=== PATIENT | female | born 1960 | race Caucasian/White ===

== ENCOUNTER 2017-03-19 12:35 | Inpatient (IN) ==
[2017-03-19] MEDS ORDERED: SODIUM CHLORIDE 0.9% 1,000 ML IV STA (12:52)
[2017-03-19 13:54] LABS: ABG Base Excess -2.6 MMOL/L (-2.5-2.5); ABG HCO3 22.2 MMOL/L (20-26); ABG Oxygen Saturation 97.2 % (95-100); ABG PCO2 35.5 MM HG (35-48); ABG PH 7.395 (7.35-7.45); ABG PO2 86.1 MM HG (80-95); ABG TCO2 19.3 MMOL/L (23-27); Allen Test Positive; Pt O2 Delivery Device Room Air
[2017-03-19 13:59] LABS: Basophils # 0.1 10*3/uL (0.0-0.2); Basophils % 0.7 % (0.0-0.8); Eosinophils # 0.3 10*3/uL (0.0-0.87); Eosinophils % 2.1 % (0.00-10.9); Hematocrit 35.3 VOL% (35.7-47.0); Hemoglobin 12.5 GM/DL (12.0-16.0); Immature Granulocytes % 0.4 %; Immature Granulocytes Absolute 0.05 #; Lymphocytes # 3.1 10*3/uL (1.4-4.0); Lymphocytes % 25.6 % (21.3-54.2); Mean Corpuscular HGB Conc 35.4 GM/DL (32-36); Mean Corpuscular Hemoglobin 30 PG (27-34); Mean Corpuscular Volume 83.5 FL (87-102); Mean Platelet Volume 10.9 FL (9.6-12.0); Monocytes # 0.9 10*3/uL (0.11-0.8); Monocytes % 7.5 % (1.7-12.7); Neutrophils # 7.8 10*3/uL (1.4-7.4); Neutrophils % 63.7 % (38.7-73.9); Platelet Count 390 T/CUMM (130-400); Red Blood Count 4.23 MC/CUMM (3.8-5.5); Red Cell Distribution Width 12.1 % (9.3-17.3); White Blood Count 12.2 T/CUMM (4-12)
[2017-03-19 14:09] LABS: INR 0.9; Partial Thromboplastin Time 22.7 SECS (0-40)
[2017-03-19 14:11] LABS: Ammonia 15 UMOL/L (11-32)
[2017-03-19 14:43] LABS: Alanine Aminotransferase 15 U/L (13-56); Alkaline Phosphatase 95 U/L (45-117); Aspartate Amino Transferase 19 U/L (0-37); Bilirubin,Total < 0.39 MG/DL (0.2-1.0); Blood Urea Nitrogen 36 MG/DL (7-18); Calcium 8.6 MG/DL (8.5-10.1); Free T4 (Free Thyroxine) 1.08 NG/DL (0.76-1.46); Glucose 141 MG/DL (74-106); Osmolality,Calculated 279.1 MOS/KG (273-304); Potassium 3.9 MMOL/L (3.5-5.1); Sodium 135 MMOL/L (136-145); Troponin I Only 0.022 NG/ML (0.00-0.045)
[2017-03-19 14:46] LABS: Amorphous Crystals,Urine Few /HPF (Few); Apearance,Urine CLOUDY (Clear); Bacteria,Urine Occasional /HPF (Few); Bilirubin,Urine Negative (Negative); Blood, Urine Small mg/dL (Negative); Glucose,Urine (UA) >=500 mg/dL (Negative); Granular Casts,Urine 5 /LPF (0-1); Ketones,Urine Negative (Negative); Mucus,Urine Occasional /LPF (Occasional); Nitrite,Urine Negative (Negative); Protein,Urine >=500 MG/DL; RBC,Urine 5 /HPF (0-4); Squamous Epithelial Cell,Urine Occasional /HPF (0-10); Urine Color Yellow (Yellow); Urine Urobilinogen < 2.0 EU/DL (0.2-1.0); WBC,Urine 2 /HPF (0-6)
[2017-03-19 15:01] LABS: Barbiturates Screen,Urine Negative (Negative); Benzodiazepines Screen,Urine Negative (Negative); Cannabinoid Screen,Urine Negative (Negative); Opiate Screen,Urine Positive (Negative); Phencyclidine Screen,Urine Negative (Negative)
[2017-03-19] MEDS ORDERED: LABETALOL 20 MG/4 ML SYRINGE IV PRN (16:35)
[2017-03-19] MEDS ORDERED: DEXTROSE 50% 25 GM/50 ML VIAL IV PRN (16:35)
[2017-03-19] MEDS ORDERED: ONDANSETRON 4 MG/2 ML VIAL IV PRN (16:35)
[2017-03-19] MEDS ORDERED: LACTULOSE 20 GM/30 ML UDCUP PO PRN (16:35)
[2017-03-19] MEDS ORDERED: GLUCAGON 1 MG VIAL IM PRN (16:35)
[2017-03-19] MEDS ORDERED: DOCUSATE SODIUM 100 MG CAPSULE PO PRN (16:35)
[2017-03-19] MEDS ORDERED: PROMETHAZINE 25 MG TABLET PO PRN (16:50)
[2017-03-19 17:10] LABS: Risk Ratio 7.52; VLDL CHOLESTEROL 118.2 MG/DL
[2017-03-19] MEDS ORDERED: INFLUENZA VIRUS VACCINE 0.5 ML SYRINGE IM ONE (17:50)
[2017-03-19] MEDS: FUROSEMIDE 40 MG TABLET PO SCH (18:15)
[2017-03-19] MEDS: ENOXAPARIN 40 MG/0.4 ML SYRINGE SUBCUT SCH (18:15)
[2017-03-19] MEDS: SODIUM CHLORIDE 0.9% 1,000 ML IV SCH (18:16)
[2017-03-19] MEDS: INSULIN GLARGINE 100 UNIT/ML SUBCUT SCH (21:15)
[2017-03-19] MEDS: CARVEDILOL 25 MG TABLET PO SCH (21:15)
[2017-03-19] MEDS: hydrALAZINE 25 MG TABLET PO SCH (21:15)
[2017-03-19] MEDS: ZALEPLON 5 MG CAPSULE PO PRN (21:16)
[2017-03-19] MEDS: INSULIN LISPRO 100 UNIT/ML SUBCUT SCH (21:16)
[2017-03-20] MEDS: ACETAMINOPHEN 325 MG TABLET PO PRN ×3 (02:39→21:29)
[2017-03-20] MEDS: SODIUM CHLORIDE 0.9% 1,000 ML IV SCH ×3 (02:40→17:10)
[2017-03-20 08:00] LABS: Hematocrit 28.4 VOL% (35.7-47.0); Mean Corpuscular HGB Conc 34.5 GM/DL (32-36); Mean Corpuscular Hemoglobin 29 PG (27-34); Mean Corpuscular Volume 85.3 FL (87-102); Red Cell Distribution Width 12.5 % (9.3-17.3)
[2017-03-20 08:01] LABS: Basophils % 0.5 % (0.0-0.8); Eosinophils # 0.2 10*3/uL (0.0-0.87); Eosinophils % 2.8 % (0.00-10.9); Immature Granulocytes % 0.4 %; Immature Granulocytes Absolute 0.03 #; Lymphocytes # 2.3 10*3/uL (1.4-4.0); Lymphocytes % 27.3 % (21.3-54.2); Mean Platelet Volume 11.4 FL (9.6-12.0); Monocytes # 0.6 10*3/uL (0.11-0.8); Monocytes % 7.6 % (1.7-12.7); Neutrophils # 5.2 10*3/uL (1.4-7.4); Neutrophils % 61.4 % (38.7-73.9)
[2017-03-20 08:09] LABS: Hemoglobin 9.8 GM/DL (12.0-16.0); Red Blood Count 3.33 MC/CUMM (3.8-5.5); White Blood Count 8.4 T/CUMM (4-12)
[2017-03-20 08:10] LABS: Platelet Count 290 T/CUMM (130-400)
[2017-03-20 08:40] LABS: Calcium 7.5 MG/DL (8.5-10.1); Osmolality,Calculated 296.3 MOS/KG (273-304); Potassium 3.3 MMOL/L (3.5-5.1)
[2017-03-20] MEDS ORDERED: ASPIRIN EC 81 MG TABLET PO SCH (09:00)
[2017-03-20] MEDS: INSULIN LISPRO 100 UNIT/ML SUBCUT SCH ×4 (09:39→21:32)
[2017-03-20] MEDS: FUROSEMIDE 40 MG TABLET PO SCH ×2 (09:40→17:08)
[2017-03-20] MEDS: amLODIPine 10 MG TABLET PO SCH (09:41)
[2017-03-20] MEDS: ASPIRIN EC 81 MG TABLET PO SCH (09:42)
[2017-03-20] MEDS: PANTOPRAZOLE 40 MG TABLET PO SCH (09:42)
[2017-03-20] MEDS: CARVEDILOL 25 MG TABLET PO SCH ×2 (09:42→21:31)
[2017-03-20] MEDS: ALLOPURINOL 100 MG TABLET PO SCH (09:42)
[2017-03-20] MEDS: hydrALAZINE 25 MG TABLET PO SCH ×2 (09:42→21:30)
[2017-03-20] MEDS ORDERED: tiZANidine 4 MG TABLET PO PRN (15:06)
[2017-03-20] MEDS ORDERED: LEVOFLOXACIN INJ 500 MG in PREMIX 1 EACH IV ONE (15:30)
[2017-03-20] MEDS: ENOXAPARIN 40 MG/0.4 ML SYRINGE SUBCUT SCH (17:10)
[2017-03-20] MEDS ORDERED: ATORVASTATIN 20 MG TABLET PO SCH (21:00)
[2017-03-20] MEDS: ZALEPLON 5 MG CAPSULE PO PRN (21:29)
[2017-03-20] MEDS: INSULIN GLARGINE 100 UNIT/ML SUBCUT SCH (21:31)
[2017-03-20] MEDS: NYSTATIN POWDER 15 GM BOTTLE TOP SCH (21:31)
[2017-03-21] MEDS: ACETAMINOPHEN 325 MG TABLET PO PRN (01:27)
[2017-03-21 07:11] VITALS: BP 147/70
[2017-03-21 08:00] LABS: Basophils % 0.6 % (0.0-0.8); Eosinophils # 0.2 10*3/uL (0.0-0.87); Eosinophils % 3.5 % (0.00-10.9); Hematocrit 29.1 VOL% (35.7-47.0); Hemoglobin 9.6 GM/DL (12.0-16.0); Immature Granulocytes % 0.9 %; Immature Granulocytes Absolute 0.06 #; Lymphocytes # 1.8 10*3/uL (1.4-4.0); Lymphocytes % 26.4 % (21.3-54.2); Mean Corpuscular Hemoglobin 30 PG (27-34); Mean Corpuscular Volume 90.7 FL (87-102); Mean Platelet Volume 12.1 FL (9.6-12.0); Monocytes # 0.6 10*3/uL (0.11-0.8); Monocytes % 8.2 % (1.7-12.7); Neutrophils # 4.2 10*3/uL (1.4-7.4); Neutrophils % 60.4 % (38.7-73.9); Platelet Count 250 T/CUMM (130-400); Red Blood Count 3.21 MC/CUMM (3.8-5.5); Red Cell Distribution Width 12.8 % (9.3-17.3); White Blood Count 6.9 T/CUMM (4-12)
[2017-03-21 08:08] LABS: Osmolality,Calculated 294.3 MOS/KG (273-304); Potassium 3.6 MMOL/L (3.5-5.1)
[2017-03-21 08:23] LABS: Platelet Estimate Normal
[2017-03-21] MEDS: INSULIN LISPRO 100 UNIT/ML SUBCUT SCH (08:37)
[2017-03-21] MEDS: amLODIPine 10 MG TABLET PO SCH (08:37)
[2017-03-21] MEDS: ALLOPURINOL 100 MG TABLET PO SCH (08:37)
[2017-03-21] MEDS: FUROSEMIDE 40 MG TABLET PO SCH (08:38)
[2017-03-21] MEDS: ASPIRIN EC 81 MG TABLET PO SCH (08:38)
[2017-03-21] MEDS: PANTOPRAZOLE 40 MG TABLET PO SCH (08:38)
[2017-03-21] MEDS: hydrALAZINE 25 MG TABLET PO SCH (08:38)
[2017-03-21] MEDS: NYSTATIN POWDER 15 GM BOTTLE TOP SCH (08:38)
[2017-03-21] MEDS: CARVEDILOL 25 MG TABLET PO SCH (08:38)
[2017-03-21] MEDS: POTASSIUM CHLORIDE 20 MEQ TABLET PO PRN ×2 (08:49→10:06)
[2017-03-21] MEDS ORDERED: MULTIVITAMIN (CENTRUM) TABLET PO SCH (09:00)
[2017-03-21] MEDS ORDERED: LEVOFLOXACIN INJ 250 MG in PREMIX 1 EACH IV SCH (15:30)
== END 2017-03-21 11:10 | disposition home or self-care (01) | DRG 52 ==
LOC: N.ED 12:35 → SUATTDRO 14:56 → N.EDINP 14:56 → N.5E 16:49
PROVIDERS: ADMIT Internal Medicine; ATTEND Internal Medicine

== ENCOUNTER 2017-05-20 15:31 | Inpatient (IN) ==
[2017-05-20 16:05] LABS: Basophils % 0.4 % (0.0-0.8); Eosinophils # 0.2 10*3/uL (0.0-0.87); Eosinophils % 2.5 % (0.00-10.9); Hematocrit 32.4 VOL% (35.7-47.0); Hemoglobin 10.7 GM/DL (12.0-16.0); Immature Granulocytes % 0.3 %; Immature Granulocytes Absolute 0.03 #; Lymphocytes # 1.5 10*3/uL (1.4-4.0); Mean Corpuscular Hemoglobin 28 PG (27-34); Mean Platelet Volume 11.5 FL (9.6-12.0); Monocytes # 0.7 10*3/uL (0.11-0.8); Monocytes % 6.9 % (1.7-12.7); Neutrophils % 73.9 % (38.7-73.9); Platelet Count 318 T/CUMM (130-400); Red Blood Count 3.81 MC/CUMM (3.8-5.5); Red Cell Distribution Width 12.9 % (9.3-17.3); White Blood Count 9.5 T/CUMM (4-12)
[2017-05-20 16:16] LABS: INR 0.9; Partial Thromboplastin Time 28.4 SECS (0-40)
[2017-05-20 16:23] LABS: Alanine Aminotransferase 17 U/L (13-56); Albumin 2.1 G/DL (3.4-5.0); Alkaline Phosphatase 141 U/L (45-117); Ammonia < 10 UMOL/L (11-32); Aspartate Amino Transferase 12 U/L (0-37); Bilirubin,Total < 0.39 MG/DL (0.2-1.0); Blood Urea Nitrogen 32 MG/DL (7-18); Calcium 8.9 MG/DL (8.5-10.1); Osmolality,Calculated 299.8 MOS/KG (273-304); Potassium 4.3 MMOL/L (3.5-5.1); Sodium 130 MMOL/L (136-145); Total Protein 7.2 G/DL (6.4-8.3)
[2017-05-20 16:26] LABS: Glucose 700 MG/DL (74-106)
[2017-05-20 17:10] LABS: Apearance,Urine Slightly Hazy (Clear); Bilirubin,Urine Negative (Negative); Blood, Urine Negative (Negative); Glucose,Urine (UA) >=500 mg/dL (Negative); Hyaline Casts,Urine 1 /LPF (0-3); Ketones,Urine Negative (Negative); Nitrite,Urine Negative (Negative); Protein,Urine >=500 MG/DL; RBC,Urine 2 /HPF (0-4); Urine Color Yellow (Yellow); Urine Urobilinogen < 2.0 EU/DL (0.2-1.0); WBC,Urine 2 /HPF (0-6)
[2017-05-20] MEDS ORDERED: SODIUM CHLORIDE 0.9% 1,000 ML IV STA (17:37)
[2017-05-20] MEDS ORDERED: INSULIN REGULAR 100 UNIT/ML IV STA (17:37)
[2017-05-20] MEDS ORDERED: INSULIN REGULAR 100 UNIT/ML ONE (17:57)
[2017-05-20 18:07] LABS: Barbiturates Screen,Urine Negative (Negative); Benzodiazepines Screen,Urine Negative (Negative); Cannabinoid Screen,Urine Negative (Negative); Opiate Screen,Urine Positive (Negative); Phencyclidine Screen,Urine Negative (Negative)
[2017-05-20] MEDS ORDERED: tiZANidine 4 MG TABLET PO PRN (18:15)
[2017-05-20] MEDS ORDERED: GLUCAGON 1 MG VIAL IM PRN (18:16)
[2017-05-20] MEDS ORDERED: DEXTROSE 50% 25 GM/50 ML VIAL IV PRN (18:16)
[2017-05-20 18:17] LABS: ABG Base Excess 0.7 MMOL/L (-2.5-2.5); ABG HCO3 25.1 MMOL/L (20-26); ABG PCO2 39.4 MM HG (35-48); ABG PH 7.422 (7.35-7.45); ABG PO2 120.7 MM HG (80-95); ABG TCO2 26.3 MMOL/L (23-27)
[2017-05-20] MEDS: SODIUM CHLORIDE 0.9% 1,000 ML IV SCH ×2 (19:05→21:15)
[2017-05-20] MEDS: INSULIN NPH/REGULAR 70/30 100 UNIT/ML SUBCUT SCH (19:56)
[2017-05-20 20:02] LABS: Lactic Acid 3.5 MMOL/L (0.4-2.0)
[2017-05-20] MEDS: MEROPENEM 1,000 MG in SYRINGE 1 EACH IV SCH (20:11)
[2017-05-20] MEDS ORDERED: ENOXAPARIN 30 MG/0.3 ML SYRINGE SUBCUT SCH (21:00)
[2017-05-20] MEDS: CARVEDILOL 25 MG TABLET PO SCH (21:44)
[2017-05-20] MEDS: INSULIN REGULAR 100 UNIT/ML SUBCUT SCH (21:59)
[2017-05-21] MEDS: INSULIN REGULAR 100 UNIT/ML SUBCUT SCH ×5 (03:00→21:57)
[2017-05-21 04:43] LABS: Basophils % 0.3 % (0.0-0.8); Eosinophils # 0.2 10*3/uL (0.0-0.87); Eosinophils % 3.4 % (0.00-10.9); Hematocrit 22.7 VOL% (35.7-47.0); Hemoglobin 7.4 GM/DL (12.0-16.0); Immature Granulocytes % 0.6 %; Immature Granulocytes Absolute 0.04 #; Lymphocytes # 1.7 10*3/uL (1.4-4.0); Lymphocytes % 23.7 % (21.3-54.2); Mean Corpuscular HGB Conc 32.6 GM/DL (32-36); Mean Corpuscular Hemoglobin 29 PG (27-34); Mean Corpuscular Volume 87.3 FL (87-102); Mean Platelet Volume 11.3 FL (9.6-12.0); Monocytes # 0.6 10*3/uL (0.11-0.8); Monocytes % 8.4 % (1.7-12.7); Neutrophils # 4.5 10*3/uL (1.4-7.4); Neutrophils % 63.6 % (38.7-73.9); Platelet Count 204 T/CUMM (130-400); Red Cell Distribution Width 12.9 % (9.3-17.3)
[2017-05-21 05:29] LABS: Magnesium 1.5 MG/DL (1.8-2.4); Osmolality,Calculated 295.4 MOS/KG (273-304); Potassium 2.7 MMOL/L (3.5-5.1); Thyroid Stimulating Hormone 0.783 uIU/ml (0.358-3.74); VLDL CHOLESTEROL 65.4 MG/DL
[2017-05-21 06:01] LABS: Basophils % 0.3 % (0.0-0.8); Eosinophils # 0.3 10*3/uL (0.0-0.87); Eosinophils % 3.4 % (0.00-10.9); Hemoglobin 8.5 GM/DL (12.0-16.0); Immature Granulocytes % 0.5 %; Immature Granulocytes Absolute 0.05 #; Lymphocytes # 2.2 10*3/uL (1.4-4.0); Lymphocytes % 22.9 % (21.3-54.2); Mean Corpuscular HGB Conc 32.7 GM/DL (32-36); Mean Corpuscular Hemoglobin 28 PG (27-34); Mean Corpuscular Volume 86.7 FL (87-102); Mean Platelet Volume 10.8 FL (9.6-12.0); Monocytes # 0.8 10*3/uL (0.11-0.8); Monocytes % 8.1 % (1.7-12.7); Neutrophils # 6.3 10*3/uL (1.4-7.4); Neutrophils % 64.8 % (38.7-73.9); Platelet Count 256 T/CUMM (130-400); Red Cell Distribution Width 12.9 % (9.3-17.3); White Blood Count 9.7 T/CUMM (4-12)
[2017-05-21] MEDS ORDERED: MAGNESIUM SULF RIDER 4 GM in PREMIX 1 EACH IV PRN (07:02)
[2017-05-21] MEDS ORDERED: POTASSIUM CHLORIDE 20 MEQ TABLET PO PRN (07:02)
[2017-05-21] MEDS ORDERED: MAGNESIUM SULF RIDER 2 GM in PREMIX 1 EACH IV PRN (07:02)
[2017-05-21] MEDS ORDERED: INSULIN REGULAR 100 UNIT/ML SUBCUT SCH (08:00)
[2017-05-21] MEDS: CARVEDILOL 25 MG TABLET PO SCH ×2 (09:16→21:57)
[2017-05-21] MEDS: ALLOPURINOL 100 MG TABLET PO SCH (09:17)
[2017-05-21] MEDS: ASPIRIN EC 81 MG TABLET PO SCH (09:17)
[2017-05-21] MEDS: POTASSIUM CHLORIDE 20 MEQ TABLET PO SCH ×3 (09:17→16:37)
[2017-05-21] MEDS: INSULIN NPH/REGULAR 70/30 100 UNIT/ML SUBCUT SCH ×2 (10:00→21:57)
[2017-05-21] MEDS: MEROPENEM 1,000 MG in SYRINGE 1 EACH IV SCH (10:00)
[2017-05-21] MEDS ORDERED: POTASSIUM CHLORIDE RIDER 200 ML IV ONE (10:11)
[2017-05-21] MEDS ORDERED: POTASSIUM CHLORIDE INJ 40 MEQ in SODIUM CHLORIDE 0.45% 250 ML IV ONE (10:30)
[2017-05-21] MEDS ORDERED: POTASSIUM CHLORIDE RIDER 10 MEQ in PREMIX 1 EACH IV SCH (10:30)
[2017-05-21] MEDS: DOXYCYCLINE HYCLATE INJ 100 MG in SODIUM CHLORIDE 0.9% 100 ML IV SCH ×2 (10:31→23:35)
[2017-05-21] MEDS: VANCOMYCIN INJ 1,000 MG in SODIUM CHLORIDE 0.9% 250 ML IV SCH (13:15)
[2017-05-21] MEDS ORDERED: MIDAZOLAM 2 MG/2 ML VIAL ONE (15:14)
[2017-05-21] MEDS ORDERED: PROPOFOL 200 MG/20 ML VIAL IV ONE (15:14)
[2017-05-21] MEDS ORDERED: fentaNYL 100 MCG/2 ML VIAL ONE (15:15)
[2017-05-21] MEDS ORDERED: DEXAMETHASONE 10 MG/1 ML VIAL ONE (15:15)
[2017-05-21] MEDS ORDERED: ONDANSETRON 4 MG/2 ML VIAL ONE ×2 (15:15→15:23)
[2017-05-21] MEDS ORDERED: ONDANSETRON 4 MG/2 ML VIAL IV PRN (15:21)
[2017-05-21] MEDS ORDERED: HYDROmorphone 2 MG/1 ML VIAL ONE (15:23)
[2017-05-21] MEDS: HYDROmorphone 2 MG/1 ML VIAL IV PRN ×2 (15:28→15:44)
[2017-05-21] MEDS: ATORVASTATIN 20 MG TABLET PO SCH (21:57)
[2017-05-21] MEDS: ENOXAPARIN 40 MG/0.4 ML SYRINGE SUBCUT SCH (21:57)
[2017-05-21] MEDS: ZALEPLON 5 MG CAPSULE PO SCH (21:58)
[2017-05-22] MEDS: VANCOMYCIN INJ 1,000 MG in SODIUM CHLORIDE 0.9% 250 ML IV SCH ×2 (00:52→13:36)
[2017-05-22] MEDS: ONDANSETRON 4 MG/2 ML VIAL IV PRN (00:52)
[2017-05-22] MEDS: LOSARTAN 50 MG TABLET PO SCH (08:59)
[2017-05-22] MEDS: INSULIN REGULAR 100 UNIT/ML SUBCUT SCH ×4 (08:59→21:50)
[2017-05-22] MEDS: ALLOPURINOL 100 MG TABLET PO SCH (09:00)
[2017-05-22] MEDS: ASPIRIN EC 81 MG TABLET PO SCH (09:00)
[2017-05-22] MEDS: CARVEDILOL 25 MG TABLET PO SCH ×2 (09:00→21:48)
[2017-05-22] MEDS: INSULIN NPH/REGULAR 70/30 100 UNIT/ML SUBCUT SCH ×2 (09:10→21:49)
[2017-05-22] MEDS: DOXYCYCLINE HYCLATE INJ 100 MG in SODIUM CHLORIDE 0.9% 100 ML IV SCH ×2 (10:41→22:37)
[2017-05-22] MEDS: ATORVASTATIN 20 MG TABLET PO SCH (21:48)
[2017-05-22] MEDS: ENOXAPARIN 40 MG/0.4 ML SYRINGE SUBCUT SCH (21:48)
[2017-05-22] MEDS: ZALEPLON 5 MG CAPSULE PO SCH (21:48)
[2017-05-23] MEDS: VANCOMYCIN INJ 1,000 MG in SODIUM CHLORIDE 0.9% 250 ML IV SCH ×2 (01:09→12:30)
[2017-05-23 06:23] LABS: Basophils % 0.5 % (0.0-0.8); Eosinophils # 0.5 10*3/uL (0.0-0.87); Hematocrit 29.4 VOL% (35.7-47.0); Hemoglobin 9.3 GM/DL (12.0-16.0); Immature Granulocytes % 0.8 %; Immature Granulocytes Absolute 0.06 #; Lymphocytes # 2.7 10*3/uL (1.4-4.0); Lymphocytes % 35.2 % (21.3-54.2); Mean Corpuscular HGB Conc 31.6 GM/DL (32-36); Mean Corpuscular Hemoglobin 28 PG (27-34); Mean Corpuscular Volume 89.6 FL (87-102); Mean Platelet Volume 11.5 FL (9.6-12.0); Monocytes # 0.7 10*3/uL (0.11-0.8); Monocytes % 9.3 % (1.7-12.7); Neutrophils # 3.7 10*3/uL (1.4-7.4); Neutrophils % 48.2 % (38.7-73.9); Platelet Count 247 T/CUMM (130-400); Red Blood Count 3.28 MC/CUMM (3.8-5.5); White Blood Count 7.7 T/CUMM (4-12)
[2017-05-23 07:00] LABS: Calcium 8.1 MG/DL (8.5-10.1); Osmolality,Calculated 287.3 MOS/KG (273-304); Potassium 4.4 MMOL/L (3.5-5.1)
[2017-05-23] MEDS: INSULIN NPH/REGULAR 70/30 100 UNIT/ML SUBCUT SCH ×2 (08:18→18:15)
[2017-05-23] MEDS: INSULIN REGULAR 100 UNIT/ML SUBCUT SCH ×4 (08:19→21:16)
[2017-05-23] MEDS: LOSARTAN 50 MG TABLET PO SCH (08:20)
[2017-05-23] MEDS: CARVEDILOL 25 MG TABLET PO SCH ×2 (08:20→21:12)
[2017-05-23] MEDS: ALLOPURINOL 100 MG TABLET PO SCH (08:21)
[2017-05-23] MEDS: ASPIRIN EC 81 MG TABLET PO SCH (08:21)
[2017-05-23] MEDS: DOXYCYCLINE HYCLATE INJ 100 MG in SODIUM CHLORIDE 0.9% 100 ML IV SCH ×2 (08:21→21:14)
[2017-05-23] MEDS ORDERED: VANCOMYCIN INJ 1,000 MG in SODIUM CHLORIDE 0.9% 250 ML IV PRN (14:00)
[2017-05-23] MEDS: ATORVASTATIN 20 MG TABLET PO SCH (21:13)
[2017-05-23] MEDS: ZALEPLON 5 MG CAPSULE PO SCH (21:13)
[2017-05-23] MEDS: ENOXAPARIN 40 MG/0.4 ML SYRINGE SUBCUT SCH (21:14)
[2017-05-24 07:02] LABS: Calcium 8.5 MG/DL (8.5-10.1); Osmolality,Calculated 290.3 MOS/KG (273-304); Potassium 4.6 MMOL/L (3.5-5.1)
[2017-05-24] MEDS: INSULIN REGULAR 100 UNIT/ML SUBCUT SCH ×2 (08:12→11:55)
[2017-05-24] MEDS: CARVEDILOL 25 MG TABLET PO SCH (08:12)
[2017-05-24] MEDS: LOSARTAN 50 MG TABLET PO SCH (08:12)
[2017-05-24] MEDS: ALLOPURINOL 100 MG TABLET PO SCH (08:12)
[2017-05-24] MEDS: ASPIRIN EC 81 MG TABLET PO SCH (08:13)
[2017-05-24] MEDS: INSULIN NPH/REGULAR 70/30 100 UNIT/ML SUBCUT SCH (08:13)
[2017-05-24] MEDS: ONDANSETRON 4 MG/2 ML VIAL IV PRN (08:34)
[2017-05-24] MEDS: DOXYCYCLINE HYCLATE INJ 100 MG in SODIUM CHLORIDE 0.9% 100 ML IV SCH (08:34)
[2017-05-24 12:09] VITALS: BP 152/61
== END 2017-05-24 13:36 | disposition home or self-care (01) | DRG 383 ==
LOC: EDUNIT# → EDBD → N.ED 15:31 → SUATTDRO 18:03 → N.EDINP 18:03 → N.ICU 19:10 → N.2E 05-21 14:41
PROVIDERS: ADMIT Internal Medicine; ATTEND Internal Medicine

== ENCOUNTER 2017-08-31 11:18 | Inpatient (IN) ==
[2017-08-31] MEDS ORDERED: GLUCAGON 1 MG VIAL IM PRN (12:22)
[2017-08-31 12:51] LABS: Basophils # 0.1 10*3/uL (0.0-0.2); Basophils % 0.5 % (0.0-0.8); Eosinophils # 0.6 10*3/uL (0.0-0.87); Eosinophils % 4.7 % (0.00-10.9); Hematocrit 28.1 VOL% (35.7-47.0); Hemoglobin 8.9 GM/DL (12.0-16.0); Immature Granulocytes % 0.8 %; Immature Granulocytes Absolute 0.09 #; Mean Corpuscular HGB Conc 31.7 GM/DL (32-36); Mean Corpuscular Hemoglobin 29 PG (27-34); Mean Corpuscular Volume 90.9 FL (87-102); Mean Platelet Volume 10.3 FL (9.6-12.0); Monocytes # 0.8 10*3/uL (0.11-0.8); Monocytes % 6.6 % (1.7-12.7); Neutrophils # 8.3 10*3/uL (1.4-7.4); Neutrophils % 70.4 % (38.7-73.9); Platelet Count 388 T/CUMM (130-400); Red Blood Count 3.09 MC/CUMM (3.8-5.5); Red Cell Distribution Width 14.4 % (9.3-17.3); White Blood Count 11.8 T/CUMM (4-12)
[2017-08-31 13:27] LABS: Calcium 8.6 MG/DL (8.5-10.1); Osmolality,Calculated 298.1 MOS/KG (273-304); Potassium 4.7 MMOL/L (3.5-5.1)
[2017-08-31] MEDS ORDERED: MAGNESIUM HYDROXIDE SUSP 30 ML UDCUP PO PRN (14:13)
[2017-08-31] MEDS: SODIUM CHLORIDE 0.9% 1,000 ML IV SCH (15:30)
[2017-08-31] MEDS: MORPHINE 4 MG/1 ML VIAL IV PRN ×3 (15:35→21:22)
[2017-08-31 16:28] LABS: Apearance,Urine CLOUDY (Clear); Bacteria,Urine Occasional /HPF (Few); Bilirubin,Urine Negative (Negative); Blood, Urine Negative (Negative); Glucose,Urine (UA) >=500 mg/dL (Negative); Ketones,Urine Negative (Negative); Mucus,Urine Occasional /LPF (Occasional); Nitrite,Urine Negative (Negative); Protein,Urine >=500 MG/DL; RBC,Urine 1 /HPF (0-4); Squamous Epithelial Cell,Urine Occasional /HPF (0-10); Urine Color Yellow (Yellow); Urine Specific Gravity 1.012 (1.001-1.035); Urine Urobilinogen < 2.0 EU/DL (0.2-1.0); WBC,Urine 5 /HPF (0-6)
[2017-08-31] MEDS ORDERED: HEPARIN DRIP 25,000 UNITS/500 ML PREMIX IV SCH (17:00)
[2017-08-31] MEDS: INSULIN LISPRO 100 UNIT/ML SUBCUT SCH ×2 (17:40→21:22)
[2017-08-31] MEDS: MEROPENEM 1,000 MG in SODIUM CHLORIDE 0.9% 100 ML IV SCH (17:40)
[2017-08-31] MEDS: CARVEDILOL 25 MG TABLET PO SCH (17:47)
[2017-08-31] MEDS: INSULIN NPH/REGULAR 70/30 100 UNIT/ML SUBCUT SCH (18:44)
[2017-08-31] MEDS: DEXTROSE 50% 25 GM/50 ML VIAL IV PRN (20:53)
[2017-08-31] MEDS: GABAPENTIN 300 MG CAPSULE PO SCH (21:22)
[2017-08-31] MEDS: DOCUSATE SODIUM 100 MG CAPSULE PO SCH (21:22)
[2017-08-31] MEDS: FUROSEMIDE 40 MG TABLET PO SCH (21:22)
[2017-08-31] MEDS: ATORVASTATIN 20 MG TABLET PO SCH (21:22)
[2017-09-01] MEDS: MORPHINE 4 MG/1 ML VIAL IV PRN ×3 (00:52→21:10)
[2017-09-01 01:21] LABS: Basophils # 0.1 10*3/uL (0.0-0.2); Basophils % 0.5 % (0.0-0.8); Eosinophils # 0.5 10*3/uL (0.0-0.87); Eosinophils % 4.4 % (0.00-10.9); Hematocrit 28.2 VOL% (35.7-47.0); Immature Granulocytes % 0.7 %; Immature Granulocytes Absolute 0.08 #; Lymphocytes # 2.8 10*3/uL (1.4-4.0); Lymphocytes % 23.2 % (21.3-54.2); Mean Corpuscular HGB Conc 31.9 GM/DL (32-36); Mean Corpuscular Hemoglobin 29 PG (27-34); Mean Corpuscular Volume 89.2 FL (87-102); Mean Platelet Volume 10.4 FL (9.6-12.0); Monocytes # 0.8 10*3/uL (0.11-0.8); Monocytes % 6.4 % (1.7-12.7); Neutrophils # 7.8 10*3/uL (1.4-7.4); Neutrophils % 64.8 % (38.7-73.9); Platelet Count 379 T/CUMM (130-400); Red Blood Count 3.16 MC/CUMM (3.8-5.5); Red Cell Distribution Width 14.2 % (9.3-17.3); White Blood Count 12.1 T/CUMM (4-12)
[2017-09-01 01:39] LABS: Calcium 8.3 MG/DL (8.5-10.1); Osmolality,Calculated 296.8 MOS/KG (273-304)
[2017-09-01] MEDS: MEROPENEM 1,000 MG in SODIUM CHLORIDE 0.9% 100 ML IV SCH ×2 (05:30→16:33)
[2017-09-01] MEDS: SODIUM CHLORIDE 0.9% 1,000 ML IV SCH ×2 (05:31→23:32)
[2017-09-01] MEDS: INSULIN LISPRO 100 UNIT/ML SUBCUT SCH ×4 (08:57→23:11)
[2017-09-01] MEDS: METHOCARBAMOL 750 MG TABLET PO PRN (08:58)
[2017-09-01] MEDS: CARVEDILOL 25 MG TABLET PO SCH ×2 (08:58→16:34)
[2017-09-01] MEDS: INSULIN NPH/REGULAR 70/30 100 UNIT/ML SUBCUT SCH ×2 (08:58→19:04)
[2017-09-01] MEDS ORDERED: NIFEdipine CC 60 MG TABLET PO SCH (09:00)
[2017-09-01] MEDS ORDERED: DIAZEPAM 5 MG TABLET PO ONE (09:39)
[2017-09-01] MEDS ORDERED: SODIUM CHLORIDE 0.45% 1,000 ML IV SCH (10:00)
[2017-09-01] MEDS ORDERED: HEPARIN/NACL 0.9% 2 UNITS/ML 2,000 ML IV ONE (10:21)
[2017-09-01] MEDS: ASPIRIN EC 81 MG TABLET PO SCH (10:32)
[2017-09-01] MEDS: MULTIVITAMIN (CENTRUM) TABLET PO SCH (10:32)
[2017-09-01] MEDS: DOCUSATE SODIUM 100 MG CAPSULE PO SCH ×2 (10:32→21:14)
[2017-09-01] MEDS: LOSARTAN 50 MG TABLET PO SCH (10:33)
[2017-09-01] MEDS: GABAPENTIN 300 MG CAPSULE PO SCH ×3 (10:33→21:14)
[2017-09-01] MEDS: FUROSEMIDE 40 MG TABLET PO SCH ×2 (10:33→21:14)
[2017-09-01] MEDS: POTASSIUM CHLORIDE 20 MEQ TABLET PO SCH (10:33)
[2017-09-01] MEDS: POLYETHYLENE GLYCOL POWDER 17 GM PACK PO SCH (10:33)
[2017-09-01] MEDS: ALLOPURINOL 100 MG TABLET PO SCH (10:34)
[2017-09-01] MEDS: CHOLECALCIFEROL 1,000 UNIT TABLET PO SCH (10:34)
[2017-09-01] MEDS ORDERED: hydrALAZINE 20 MG/1 ML VIAL ONE (11:14)
[2017-09-01] MEDS ORDERED: hydrALAZINE 20 MG/1 ML VIAL IV ONE (11:19)
[2017-09-01] MEDS: ATORVASTATIN 20 MG TABLET PO SCH (21:14)
[2017-09-02] MEDS: MORPHINE 4 MG/1 ML VIAL IV PRN ×6 (01:54→23:49)
[2017-09-02 04:10] LABS: Basophils # 0.1 10*3/uL (0.0-0.2); Basophils % 0.5 % (0.0-0.8); Eosinophils # 0.4 10*3/uL (0.0-0.87); Hematocrit 27.5 VOL% (35.7-47.0); Hemoglobin 8.8 GM/DL (12.0-16.0); Immature Granulocytes % 0.8 %; Immature Granulocytes Absolute 0.08 #; Lymphocytes # 2.1 10*3/uL (1.4-4.0); Lymphocytes % 20.2 % (21.3-54.2); Mean Corpuscular Hemoglobin 28 PG (27-34); Mean Corpuscular Volume 88.4 FL (87-102); Mean Platelet Volume 10.5 FL (9.6-12.0); Monocytes # 0.7 10*3/uL (0.11-0.8); Neutrophils # 7.1 10*3/uL (1.4-7.4); Neutrophils % 67.5 % (38.7-73.9); Platelet Count 372 T/CUMM (130-400); Red Blood Count 3.11 MC/CUMM (3.8-5.5); Red Cell Distribution Width 14.5 % (9.3-17.3); White Blood Count 10.5 T/CUMM (4-12)
[2017-09-02 04:29] LABS: Calcium 8.4 MG/DL (8.5-10.1); Osmolality,Calculated 291.3 MOS/KG (273-304); Potassium 4.4 MMOL/L (3.5-5.1)
[2017-09-02 04:30] LABS: Calcium 8.3 MG/DL (8.5-10.1); Osmolality,Calculated 293.1 MOS/KG (273-304); Potassium 4.2 MMOL/L (3.5-5.1)
[2017-09-02] MEDS: MEROPENEM 1,000 MG in SODIUM CHLORIDE 0.9% 100 ML IV SCH ×2 (05:20→15:47)
[2017-09-02] MEDS: SODIUM CHLORIDE 0.9% 1,000 ML IV SCH ×2 (07:37→21:07)
[2017-09-02] MEDS: GABAPENTIN 300 MG CAPSULE PO SCH ×3 (09:09→21:02)
[2017-09-02] MEDS: INSULIN NPH/REGULAR 70/30 100 UNIT/ML SUBCUT SCH ×2 (09:10→18:01)
[2017-09-02] MEDS: CHOLECALCIFEROL 1,000 UNIT TABLET PO SCH (09:10)
[2017-09-02] MEDS: POTASSIUM CHLORIDE 20 MEQ TABLET PO SCH (09:10)
[2017-09-02] MEDS: DOCUSATE SODIUM 100 MG CAPSULE PO SCH ×2 (09:10→21:03)
[2017-09-02] MEDS: CARVEDILOL 25 MG TABLET PO SCH ×2 (09:10→16:58)
[2017-09-02] MEDS: MULTIVITAMIN (CENTRUM) TABLET PO SCH (09:10)
[2017-09-02] MEDS: ALLOPURINOL 100 MG TABLET PO SCH (09:10)
[2017-09-02] MEDS: ASPIRIN EC 81 MG TABLET PO SCH (09:10)
[2017-09-02] MEDS: INSULIN LISPRO 100 UNIT/ML SUBCUT SCH ×4 (09:13→21:03)
[2017-09-02] MEDS: POLYETHYLENE GLYCOL POWDER 17 GM PACK PO SCH (09:14)
[2017-09-02] MEDS: LOSARTAN 50 MG TABLET PO SCH (09:18)
[2017-09-02] MEDS: FUROSEMIDE 40 MG TABLET PO SCH ×2 (09:18→21:02)
[2017-09-02] MEDS ORDERED: SODIUM CHLORIDE 0.9% 1,000 ML IV PRN (09:36)
[2017-09-02] MEDS: ATORVASTATIN 20 MG TABLET PO SCH (21:03)
[2017-09-03] MEDS: MORPHINE 4 MG/1 ML VIAL IV PRN ×4 (04:37→17:59)
[2017-09-03] MEDS: MEROPENEM 1,000 MG in SODIUM CHLORIDE 0.9% 100 ML IV SCH ×2 (04:38→18:10)
[2017-09-03] MEDS: INSULIN LISPRO 100 UNIT/ML SUBCUT SCH ×4 (08:08→20:21)
[2017-09-03] MEDS: INSULIN NPH/REGULAR 70/30 100 UNIT/ML SUBCUT SCH ×2 (08:09→18:03)
[2017-09-03] MEDS: POTASSIUM CHLORIDE 20 MEQ TABLET PO SCH (08:10)
[2017-09-03] MEDS: GABAPENTIN 300 MG CAPSULE PO SCH ×3 (08:10→20:20)
[2017-09-03] MEDS: MULTIVITAMIN (CENTRUM) TABLET PO SCH (08:10)
[2017-09-03] MEDS: CARVEDILOL 25 MG TABLET PO SCH ×2 (08:10→18:03)
[2017-09-03] MEDS: ASPIRIN EC 81 MG TABLET PO SCH (08:10)
[2017-09-03] MEDS: ALLOPURINOL 100 MG TABLET PO SCH (08:10)
[2017-09-03] MEDS: FUROSEMIDE 40 MG TABLET PO SCH ×2 (08:10→20:20)
[2017-09-03] MEDS: LOSARTAN 50 MG TABLET PO SCH (08:10)
[2017-09-03] MEDS: DOCUSATE SODIUM 100 MG CAPSULE PO SCH ×2 (08:10→20:20)
[2017-09-03] MEDS: CHOLECALCIFEROL 1,000 UNIT TABLET PO SCH (08:10)
[2017-09-03] MEDS: POLYETHYLENE GLYCOL POWDER 17 GM PACK PO SCH (08:50)
[2017-09-03] MEDS: SODIUM CHLORIDE 0.9% 1,000 ML IV SCH (08:50)
[2017-09-03] MEDS: PROMETHAZINE 25 MG TABLET PO PRN (18:10)
[2017-09-03] MEDS: ATORVASTATIN 20 MG TABLET PO SCH (20:20)
[2017-09-03] MEDS: ONDANSETRON 4 MG TABLET PO PRN (20:20)
[2017-09-04] MEDS: MORPHINE 4 MG/1 ML VIAL IV PRN ×5 (01:06→23:59)
[2017-09-04] MEDS: SODIUM CHLORIDE 0.9% 1,000 ML IV SCH ×3 (05:14→20:34)
[2017-09-04] MEDS: MEROPENEM 1,000 MG in SODIUM CHLORIDE 0.9% 100 ML IV SCH ×2 (05:15→16:19)
[2017-09-04 05:40] LABS: Basophils # 0.1 10*3/uL (0.0-0.2); Basophils % 0.6 % (0.0-0.8); Eosinophils # 0.4 10*3/uL (0.0-0.87); Eosinophils % 3.6 % (0.00-10.9); Immature Granulocytes % 0.6 %; Immature Granulocytes Absolute 0.07 #; Lymphocytes # 2.2 10*3/uL (1.4-4.0); Lymphocytes % 19.1 % (21.3-54.2); Mean Corpuscular HGB Conc 31.1 GM/DL (32-36); Mean Corpuscular Hemoglobin 29 PG (27-34); Mean Corpuscular Volume 91.6 FL (87-102); Mean Platelet Volume 10.4 FL (9.6-12.0); Monocytes # 1.1 10*3/uL (0.11-0.8); Monocytes % 9.2 % (1.7-12.7); Neutrophils # 7.8 10*3/uL (1.4-7.4); Neutrophils % 66.9 % (38.7-73.9); Platelet Count 311 T/CUMM (130-400); Red Blood Count 3.93 MC/CUMM (3.8-5.5); Red Cell Distribution Width 14.1 % (9.3-17.3); White Blood Count 11.7 T/CUMM (4-12)
[2017-09-04 05:48] LABS: Hemoglobin 11.2 GM/DL (12.0-16.0)
[2017-09-04 06:07] LABS: Calcium 8.5 MG/DL (8.5-10.1); Osmolality,Calculated 289.8 MOS/KG (273-304); Potassium 5.5 MMOL/L (3.5-5.1)
[2017-09-04] MEDS: INSULIN LISPRO 100 UNIT/ML SUBCUT SCH ×4 (07:40→21:08)
[2017-09-04] MEDS: INSULIN NPH/REGULAR 70/30 100 UNIT/ML SUBCUT SCH ×2 (08:35→18:19)
[2017-09-04] MEDS: LOSARTAN 50 MG TABLET PO SCH (08:35)
[2017-09-04] MEDS: CARVEDILOL 25 MG TABLET PO SCH ×2 (08:36→16:20)
[2017-09-04] MEDS ORDERED: MAGNESIUM SULF RIDER 4 GM in PREMIX 1 EACH IV PRN (10:18)
[2017-09-04] MEDS ORDERED: MAGNESIUM SULF RIDER 2 GM in PREMIX 1 EACH IV PRN (10:18)
[2017-09-04] MEDS: MULTIVITAMIN (CENTRUM) TABLET PO SCH (10:21)
[2017-09-04] MEDS: ASPIRIN EC 81 MG TABLET PO SCH (10:21)
[2017-09-04] MEDS: DOCUSATE SODIUM 100 MG CAPSULE PO SCH ×2 (10:21→21:08)
[2017-09-04] MEDS: CHOLECALCIFEROL 1,000 UNIT TABLET PO SCH (10:21)
[2017-09-04] MEDS: POLYETHYLENE GLYCOL POWDER 17 GM PACK PO SCH (10:21)
[2017-09-04] MEDS: FUROSEMIDE 40 MG TABLET PO SCH ×2 (10:21→21:08)
[2017-09-04] MEDS: GABAPENTIN 300 MG CAPSULE PO SCH ×3 (10:21→21:07)
[2017-09-04] MEDS: POTASSIUM CHLORIDE 20 MEQ TABLET PO SCH (10:21)
[2017-09-04] MEDS: ALLOPURINOL 100 MG TABLET PO SCH (10:22)
[2017-09-04] MEDS: METHOCARBAMOL 750 MG TABLET PO PRN (17:47)
[2017-09-04] MEDS: ATORVASTATIN 20 MG TABLET PO SCH (21:07)
[2017-09-04] MEDS: PROMETHAZINE 25 MG TABLET PO PRN (23:49)
[2017-09-05] MEDS ORDERED: PROMETHAZINE 25 MG/1 ML VIAL IM ONE (00:33)
[2017-09-05] MEDS: SODIUM CHLORIDE 0.9% 1,000 ML IV SCH ×2 (03:41→18:27)
[2017-09-05] MEDS: ONDANSETRON 4 MG/2 ML VIAL IV PRN (04:06)
[2017-09-05 05:06] LABS: Calcium 8.6 MG/DL (8.5-10.1); Osmolality,Calculated 296.4 MOS/KG (273-304); Potassium 5.1 MMOL/L (3.5-5.1)
[2017-09-05] MEDS ORDERED: FAMOTIDINE 20 MG TABLET PO ONE (06:00)
[2017-09-05] MEDS ORDERED: ALBUTEROL/IPRATROPIUM 3 ML NEB RESP TX ONE (06:00)
[2017-09-05] MEDS ORDERED: ALBUTEROL 2.5 MG/3 ML NEB RESP TX ONE (06:00)
[2017-09-05] MEDS: MORPHINE 4 MG/1 ML VIAL IV PRN (06:00)
[2017-09-05] MEDS: INSULIN LISPRO 100 UNIT/ML SUBCUT SCH ×3 (08:32→20:47)
[2017-09-05] MEDS: MEROPENEM 1,000 MG in SODIUM CHLORIDE 0.9% 100 ML IV SCH ×2 (08:34→20:48)
[2017-09-05] MEDS: CARVEDILOL 25 MG TABLET PO SCH ×2 (08:35→17:43)
[2017-09-05] MEDS: LOSARTAN 25 MG TABLET PO SCH (08:35)
[2017-09-05] MEDS ORDERED: VANCOMYCIN INJ 500 MG in SODIUM CHLORIDE 0.9% 100 ML IV ONE (09:34)
[2017-09-05] MEDS: ASPIRIN EC 81 MG TABLET PO SCH (10:24)
[2017-09-05] MEDS: MULTIVITAMIN (CENTRUM) TABLET PO SCH (10:25)
[2017-09-05] MEDS: INSULIN NPH/REGULAR 70/30 100 UNIT/ML SUBCUT SCH ×2 (10:25→20:43)
[2017-09-05] MEDS: POLYETHYLENE GLYCOL POWDER 17 GM PACK PO SCH (10:25)
[2017-09-05] MEDS: DOCUSATE SODIUM 100 MG CAPSULE PO SCH ×2 (10:25→20:43)
[2017-09-05] MEDS: FUROSEMIDE 40 MG TABLET PO SCH ×2 (10:25→20:43)
[2017-09-05] MEDS: POTASSIUM CHLORIDE 20 MEQ TABLET PO SCH (10:25)
[2017-09-05] MEDS: CHOLECALCIFEROL 1,000 UNIT TABLET PO SCH (10:26)
[2017-09-05] MEDS: GABAPENTIN 300 MG CAPSULE PO SCH ×3 (10:26→20:43)
[2017-09-05] MEDS: ALLOPURINOL 100 MG TABLET PO SCH (10:26)
[2017-09-05] MEDS ORDERED: HEPARIN 5,000 UNIT/1 ML VIAL ONE (10:51)
[2017-09-05] MEDS ORDERED: LIDOCAINE 2% TOP JELLY 20 ML VIAL INTRAURETH ONE (10:51)
[2017-09-05] MEDS ORDERED: THROMBIN TOPICAL (RECOMBINANT) 5,000 UNIT VIAL TOP ONE (10:52)
[2017-09-05] MEDS ORDERED: TISSUE ADHESIVE 1 EACH APPLICATOR TOP ONE (10:52)
[2017-09-05] MEDS ORDERED: VANCOMYCIN 500 MG VIAL ONE (10:52)
[2017-09-05] MEDS ORDERED: LIDOCAINE 1% 50 ML VIAL ONE (10:52)
[2017-09-05] MEDS ORDERED: ONDANSETRON 4 MG/2 ML VIAL IV PRN ×2 (15:06→15:56)
[2017-09-05] MEDS ORDERED: MIDAZOLAM 2 MG/2 ML VIAL ONE (15:22)
[2017-09-05] MEDS ORDERED: fentaNYL 100 MCG/2 ML VIAL ONE (15:22)
[2017-09-05] MEDS ORDERED: DESFLURANE 1 UNIT/15 MINUTE INH ONE (15:24)
[2017-09-05] MEDS ORDERED: HEPARIN 10,000 UNIT/10 ML VIAL ONE (15:24)
[2017-09-05] MEDS ORDERED: ETOMIDATE 40 MG/20 ML VIAL IV ONE (15:25)
[2017-09-05] MEDS ORDERED: ONDANSETRON 4 MG/2 ML VIAL ONE ×2 (15:25→15:53)
[2017-09-05] MEDS ORDERED: ROCURONIUM 100 MG/10 ML VIAL IV ONE (15:25)
[2017-09-05] MEDS: HYDROmorphone 2 MG/1 ML VIAL IV PRN ×4 (15:50→20:38)
[2017-09-05] MEDS ORDERED: HYDROmorphone 2 MG/1 ML VIAL ONE (15:53)
[2017-09-05] MEDS: LACTATED RINGERS 1,000 ML IV SCH (17:44)
[2017-09-05] MEDS: ATORVASTATIN 20 MG TABLET PO SCH (20:43)
[2017-09-06] MEDS: HYDROmorphone 2 MG/1 ML VIAL IV PRN ×3 (02:03→20:37)
[2017-09-06 06:20] LABS: Hematocrit 31.5 VOL% (35.7-47.0); Hemoglobin 9.9 GM/DL (12.0-16.0)
[2017-09-06] MEDS: SODIUM CHLORIDE 0.9% 1,000 ML IV SCH (07:24)
[2017-09-06] MEDS: LACTATED RINGERS 1,000 ML IV SCH ×2 (07:24→09:23)
[2017-09-06] MEDS ORDERED: ASPIRIN CHEW 81 MG TABLET PO SCH (09:00)
[2017-09-06] MEDS: MEROPENEM 1,000 MG in SODIUM CHLORIDE 0.9% 100 ML IV SCH ×2 (09:18→20:34)
[2017-09-06] MEDS: GABAPENTIN 300 MG CAPSULE PO SCH ×3 (09:19→20:41)
[2017-09-06] MEDS: FUROSEMIDE 40 MG TABLET PO SCH ×2 (09:19→20:41)
[2017-09-06] MEDS: LOSARTAN 25 MG TABLET PO SCH (09:20)
[2017-09-06] MEDS: POTASSIUM CHLORIDE 20 MEQ TABLET PO SCH (09:20)
[2017-09-06] MEDS: MULTIVITAMIN (CENTRUM) TABLET PO SCH (09:20)
[2017-09-06] MEDS: CLOPIDOGREL 75 MG TABLET PO SCH (09:20)
[2017-09-06] MEDS: CHOLECALCIFEROL 1,000 UNIT TABLET PO SCH (09:20)
[2017-09-06] MEDS: ALLOPURINOL 100 MG TABLET PO SCH (09:20)
[2017-09-06] MEDS: CARVEDILOL 25 MG TABLET PO SCH ×2 (09:21→16:15)
[2017-09-06] MEDS: ASPIRIN EC 81 MG TABLET PO SCH (09:21)
[2017-09-06] MEDS: DOCUSATE SODIUM 100 MG CAPSULE PO SCH ×2 (09:21→20:41)
[2017-09-06] MEDS: POLYETHYLENE GLYCOL POWDER 17 GM PACK PO SCH (09:22)
[2017-09-06] MEDS: INSULIN NPH/REGULAR 70/30 100 UNIT/ML SUBCUT SCH ×2 (09:22→20:41)
[2017-09-06] MEDS: INSULIN LISPRO 100 UNIT/ML SUBCUT SCH ×4 (09:23→20:40)
[2017-09-06] MEDS: MORPHINE 4 MG/1 ML VIAL IV PRN (14:05)
[2017-09-06] MEDS: ATORVASTATIN 20 MG TABLET PO SCH (20:42)
[2017-09-07] MEDS: HYDROmorphone 2 MG/1 ML VIAL IV PRN ×3 (01:29→21:09)
[2017-09-07 05:33] LABS: Hematocrit 29.1 VOL% (35.7-47.0); Hemoglobin 9.4 GM/DL (12.0-16.0)
[2017-09-07 06:24] LABS: Calcium 8.4 MG/DL (8.5-10.1); Osmolality,Calculated 295.7 MOS/KG (273-304); Potassium 5.5 MMOL/L (3.5-5.1)
[2017-09-07] MEDS: ONDANSETRON 4 MG/2 ML VIAL IV PRN (09:17)
[2017-09-07] MEDS: MEROPENEM 1,000 MG in SODIUM CHLORIDE 0.9% 100 ML IV SCH ×2 (09:20→19:58)
[2017-09-07] MEDS: INSULIN NPH/REGULAR 70/30 100 UNIT/ML SUBCUT SCH ×2 (09:20→21:08)
[2017-09-07] MEDS: INSULIN LISPRO 100 UNIT/ML SUBCUT SCH ×4 (09:20→21:08)
[2017-09-07] MEDS: DOCUSATE SODIUM 100 MG CAPSULE PO SCH ×2 (09:21→21:08)
[2017-09-07] MEDS: MULTIVITAMIN (CENTRUM) TABLET PO SCH (09:21)
[2017-09-07] MEDS: CARVEDILOL 25 MG TABLET PO SCH ×2 (09:21→16:32)
[2017-09-07] MEDS: CLOPIDOGREL 75 MG TABLET PO SCH (09:21)
[2017-09-07] MEDS: CHOLECALCIFEROL 1,000 UNIT TABLET PO SCH (09:21)
[2017-09-07] MEDS: FUROSEMIDE 40 MG TABLET PO SCH ×2 (09:22→21:07)
[2017-09-07] MEDS: ALLOPURINOL 100 MG TABLET PO SCH (09:22)
[2017-09-07] MEDS: POLYETHYLENE GLYCOL POWDER 17 GM PACK PO SCH (09:22)
[2017-09-07] MEDS: GABAPENTIN 300 MG CAPSULE PO SCH ×5 (09:22→21:08)
[2017-09-07] MEDS: LOSARTAN 25 MG TABLET PO SCH (09:22)
[2017-09-07] MEDS: ASPIRIN EC 81 MG TABLET PO SCH (09:22)
[2017-09-07] MEDS: POTASSIUM CHLORIDE 20 MEQ TABLET PO SCH (09:44)
[2017-09-07] MEDS: SODIUM CHLORIDE 0.45% 1,000 ML IV SCH (10:41)
[2017-09-07] MEDS: DEXTROSE 50% 25 GM/50 ML VIAL IV PRN (15:21)
[2017-09-07] MEDS: METHOCARBAMOL 750 MG TABLET PO PRN (16:32)
[2017-09-07] MEDS: ATORVASTATIN 20 MG TABLET PO SCH (21:07)
[2017-09-08] MEDS: INSULIN NPH/REGULAR 70/30 100 UNIT/ML SUBCUT SCH ×2 (09:18→20:46)
[2017-09-08] MEDS: SODIUM CHLORIDE 0.45% 1,000 ML IV SCH (09:36)
[2017-09-08] MEDS: MEROPENEM 1,000 MG in SODIUM CHLORIDE 0.9% 100 ML IV SCH (09:47)
[2017-09-08] MEDS: LOSARTAN 25 MG TABLET PO SCH (09:48)
[2017-09-08] MEDS: HYDROmorphone 2 MG/1 ML VIAL IV PRN (10:10)
[2017-09-08] MEDS: INSULIN LISPRO 100 UNIT/ML SUBCUT SCH ×4 (10:15→20:46)
[2017-09-08] MEDS: DOCUSATE SODIUM 100 MG CAPSULE PO SCH ×2 (10:16→20:47)
[2017-09-08] MEDS: ASPIRIN EC 81 MG TABLET PO SCH (10:16)
[2017-09-08] MEDS: CARVEDILOL 25 MG TABLET PO SCH ×2 (10:16→17:19)
[2017-09-08] MEDS: CLOPIDOGREL 75 MG TABLET PO SCH (10:16)
[2017-09-08] MEDS: GABAPENTIN 300 MG CAPSULE PO SCH (10:16)
[2017-09-08] MEDS: ALLOPURINOL 100 MG TABLET PO SCH (10:17)
[2017-09-08] MEDS: FUROSEMIDE 40 MG TABLET PO SCH (10:17)
[2017-09-08] MEDS: CHOLECALCIFEROL 1,000 UNIT TABLET PO SCH (10:17)
[2017-09-08] MEDS: MULTIVITAMIN (CENTRUM) TABLET PO SCH (10:17)
[2017-09-08] MEDS: POLYETHYLENE GLYCOL POWDER 17 GM PACK PO SCH (10:18)
[2017-09-08 11:04] LABS: Osmolality,Calculated 293.2 MOS/KG (273-304); Potassium 5.3 MMOL/L (3.5-5.1)
[2017-09-08] MEDS: GABAPENTIN 100 MG CAPSULE PO SCH ×2 (17:06→20:46)
[2017-09-08] MEDS: ATORVASTATIN 20 MG TABLET PO SCH (20:47)
[2017-09-08] MEDS: METHOCARBAMOL 750 MG TABLET PO PRN (22:20)
[2017-09-09] MEDS: HYDROmorphone 2 MG/1 ML VIAL IV PRN (02:31)
[2017-09-09 05:30] LABS: Basophils # 0.1 10*3/uL (0.0-0.2); Basophils % 0.6 % (0.0-0.8); Eosinophils # 0.3 10*3/uL (0.0-0.87); Eosinophils % 2.9 % (0.00-10.9); Hematocrit 27.5 VOL% (35.7-47.0); Hemoglobin 8.8 GM/DL (12.0-16.0); Immature Granulocytes % 0.7 %; Immature Granulocytes Absolute 0.08 #; Lymphocytes # 1.2 10*3/uL (1.4-4.0); Lymphocytes % 11.3 % (21.3-54.2); Mean Corpuscular Hemoglobin 29 PG (27-34); Mean Platelet Volume 11.6 FL (9.6-12.0); Monocytes # 0.7 10*3/uL (0.11-0.8); Monocytes % 6.8 % (1.7-12.7); Neutrophils # 8.4 10*3/uL (1.4-7.4); Neutrophils % 77.7 % (38.7-73.9); Platelet Count 358 T/CUMM (130-400); Red Blood Count 3.09 MC/CUMM (3.8-5.5); Red Cell Distribution Width 13.3 % (9.3-17.3); White Blood Count 10.9 T/CUMM (4-12)
[2017-09-09] MEDS: SODIUM CHLORIDE 0.45% 1,000 ML IV SCH (06:00)
[2017-09-09 06:36] LABS: Calcium 8.1 MG/DL (8.5-10.1); Osmolality,Calculated 294.1 MOS/KG (273-304); Potassium 5.4 MMOL/L (3.5-5.1)
[2017-09-09] MEDS: INSULIN NPH/REGULAR 70/30 100 UNIT/ML SUBCUT SCH ×2 (08:53→20:59)
[2017-09-09] MEDS: INSULIN LISPRO 100 UNIT/ML SUBCUT SCH ×4 (09:19→21:00)
[2017-09-09] MEDS: MULTIVITAMIN (CENTRUM) TABLET PO SCH (09:20)
[2017-09-09] MEDS: CHOLECALCIFEROL 1,000 UNIT TABLET PO SCH (09:20)
[2017-09-09] MEDS: DOCUSATE SODIUM 100 MG CAPSULE PO SCH ×2 (09:21→20:58)
[2017-09-09] MEDS: CLOPIDOGREL 75 MG TABLET PO SCH (09:22)
[2017-09-09] MEDS: ASPIRIN EC 81 MG TABLET PO SCH (09:22)
[2017-09-09] MEDS: ALLOPURINOL 100 MG TABLET PO SCH (09:23)
[2017-09-09] MEDS: CARVEDILOL 25 MG TABLET PO SCH (09:23)
[2017-09-09] MEDS: GABAPENTIN 100 MG CAPSULE PO SCH ×3 (09:23→21:01)
[2017-09-09] MEDS: POLYETHYLENE GLYCOL POWDER 17 GM PACK PO SCH (09:23)
[2017-09-09] MEDS: ATORVASTATIN 20 MG TABLET PO SCH (20:58)
[2017-09-09] MEDS: CARVEDILOL 12.5 MG TABLET PO SCH (20:59)
[2017-09-10 05:37] LABS: Albumin 1.5 G/DL (3.4-5.0); Calcium 8.4 MG/DL (8.5-10.1); Osmolality,Calculated 297.7 MOS/KG (273-304); Potassium 4.7 MMOL/L (3.5-5.1)
[2017-09-10] MEDS: POLYETHYLENE GLYCOL POWDER 17 GM PACK PO SCH (09:30)
[2017-09-10] MEDS: DOCUSATE SODIUM 100 MG CAPSULE PO SCH ×2 (09:30→21:42)
[2017-09-10] MEDS: INSULIN NPH/REGULAR 70/30 100 UNIT/ML SUBCUT SCH ×2 (09:30→21:42)
[2017-09-10] MEDS: GABAPENTIN 100 MG CAPSULE PO SCH ×3 (09:31→21:50)
[2017-09-10] MEDS: INSULIN LISPRO 100 UNIT/ML SUBCUT SCH ×4 (09:45→21:47)
[2017-09-10] MEDS: CLOPIDOGREL 75 MG TABLET PO SCH (09:46)
[2017-09-10] MEDS: ASPIRIN EC 81 MG TABLET PO SCH (09:47)
[2017-09-10] MEDS: CARVEDILOL 12.5 MG TABLET PO SCH ×2 (09:47→17:00)
[2017-09-10] MEDS: CHOLECALCIFEROL 1,000 UNIT TABLET PO SCH (09:47)
[2017-09-10] MEDS: MULTIVITAMIN (CENTRUM) TABLET PO SCH (09:48)
[2017-09-10] MEDS: ALLOPURINOL 100 MG TABLET PO SCH (09:48)
[2017-09-10] MEDS: SODIUM CHLORIDE 0.45% 1,000 ML IV SCH ×2 (12:27→21:43)
[2017-09-10] MEDS: METHOCARBAMOL 750 MG TABLET PO PRN (16:59)
[2017-09-10] MEDS: ATORVASTATIN 20 MG TABLET PO SCH (21:42)
[2017-09-11 06:38] LABS: Calcium 8.3 MG/DL (8.5-10.1); Osmolality,Calculated 295.4 MOS/KG (273-304); Potassium 4.5 MMOL/L (3.5-5.1)
[2017-09-11] MEDS: SODIUM CHLORIDE 0.45% 1,000 ML IV SCH ×2 (08:14→15:41)
[2017-09-11] MEDS: GABAPENTIN 100 MG CAPSULE PO SCH ×3 (08:49→21:26)
[2017-09-11] MEDS: MULTIVITAMIN (CENTRUM) TABLET PO SCH (08:49)
[2017-09-11] MEDS: DOCUSATE SODIUM 100 MG CAPSULE PO SCH ×2 (08:50→21:26)
[2017-09-11] MEDS: CARVEDILOL 12.5 MG TABLET PO SCH ×2 (08:50→19:16)
[2017-09-11] MEDS: INSULIN NPH/REGULAR 70/30 100 UNIT/ML SUBCUT SCH ×2 (08:50→21:30)
[2017-09-11] MEDS: CHOLECALCIFEROL 1,000 UNIT TABLET PO SCH (08:50)
[2017-09-11] MEDS: ALLOPURINOL 100 MG TABLET PO SCH (08:50)
[2017-09-11] MEDS: POLYETHYLENE GLYCOL POWDER 17 GM PACK PO SCH (08:50)
[2017-09-11] MEDS: ASPIRIN EC 81 MG TABLET PO SCH (08:50)
[2017-09-11] MEDS: CLOPIDOGREL 75 MG TABLET PO SCH (08:50)
[2017-09-11] MEDS: INSULIN LISPRO 100 UNIT/ML SUBCUT SCH ×4 (08:51→21:27)
[2017-09-11] MEDS: METHOCARBAMOL 750 MG TABLET PO PRN (13:34)
[2017-09-11] MEDS: ATORVASTATIN 20 MG TABLET PO SCH (21:25)
[2017-09-12] MEDS: HYDROmorphone 2 MG/1 ML VIAL IV PRN ×3 (05:59→22:13)
[2017-09-12 06:17] LABS: Calcium 8.1 MG/DL (8.5-10.1); Osmolality,Calculated 287.5 MOS/KG (273-304); Potassium 4.7 MMOL/L (3.5-5.1)
[2017-09-12] MEDS: INSULIN LISPRO 100 UNIT/ML SUBCUT SCH ×4 (09:02→21:53)
[2017-09-12] MEDS: ASPIRIN EC 81 MG TABLET PO SCH ×2 (10:16→13:16)
[2017-09-12] MEDS: CARVEDILOL 12.5 MG TABLET PO SCH ×2 (10:16→16:22)
[2017-09-12] MEDS: MULTIVITAMIN (CENTRUM) TABLET PO SCH ×2 (10:16→13:16)
[2017-09-12] MEDS: CHOLECALCIFEROL 1,000 UNIT TABLET PO SCH ×2 (10:17→13:15)
[2017-09-12] MEDS: ALLOPURINOL 100 MG TABLET PO SCH ×2 (10:17→13:15)
[2017-09-12] MEDS: CLOPIDOGREL 75 MG TABLET PO SCH ×2 (10:17→13:15)
[2017-09-12] MEDS: GABAPENTIN 100 MG CAPSULE PO SCH ×4 (10:17→21:55)
[2017-09-12] MEDS: DOCUSATE SODIUM 100 MG CAPSULE PO SCH ×3 (10:17→21:55)
[2017-09-12] MEDS: POLYETHYLENE GLYCOL POWDER 17 GM PACK PO SCH (10:17)
[2017-09-12] MEDS: INSULIN NPH/REGULAR 70/30 100 UNIT/ML SUBCUT SCH ×2 (10:19→21:53)
[2017-09-12] MEDS: DOXYCYCLINE HYCLATE 100 MG CAPSULE PO SCH (21:55)
[2017-09-12] MEDS: ATORVASTATIN 20 MG TABLET PO SCH (21:55)
[2017-09-13] MEDS: HYDROmorphone 2 MG/1 ML VIAL IV PRN ×2 (05:17→09:22)
[2017-09-13 06:35] LABS: Calcium 8.3 MG/DL (8.5-10.1); Osmolality,Calculated 294.3 MOS/KG (273-304)
[2017-09-13] MEDS: GABAPENTIN 100 MG CAPSULE PO SCH ×3 (09:19→21:27)
[2017-09-13] MEDS: INSULIN NPH/REGULAR 70/30 100 UNIT/ML SUBCUT SCH ×2 (09:19→21:29)
[2017-09-13] MEDS: ASPIRIN EC 81 MG TABLET PO SCH (09:19)
[2017-09-13] MEDS: INSULIN LISPRO 100 UNIT/ML SUBCUT SCH ×4 (09:19→21:29)
[2017-09-13] MEDS: DOXYCYCLINE HYCLATE 100 MG CAPSULE PO SCH ×2 (09:20→21:26)
[2017-09-13] MEDS: ALLOPURINOL 100 MG TABLET PO SCH (09:20)
[2017-09-13] MEDS: DOCUSATE SODIUM 100 MG CAPSULE PO SCH ×2 (09:20→21:27)
[2017-09-13] MEDS: CHOLECALCIFEROL 1,000 UNIT TABLET PO SCH (09:20)
[2017-09-13] MEDS: POLYETHYLENE GLYCOL POWDER 17 GM PACK PO SCH (09:20)
[2017-09-13] MEDS: MULTIVITAMIN (CENTRUM) TABLET PO SCH (09:20)
[2017-09-13] MEDS: CARVEDILOL 12.5 MG TABLET PO SCH ×2 (09:20→16:04)
[2017-09-13] MEDS: CLOPIDOGREL 75 MG TABLET PO SCH (09:20)
[2017-09-13] MEDS: ATORVASTATIN 20 MG TABLET PO SCH (21:27)
[2017-09-14] MEDS: INSULIN LISPRO 100 UNIT/ML SUBCUT SCH ×4 (07:39→21:24)
[2017-09-14] MEDS: CARVEDILOL 12.5 MG TABLET PO SCH ×2 (08:51→18:10)
[2017-09-14] MEDS: DOXYCYCLINE HYCLATE 100 MG CAPSULE PO SCH ×2 (08:51→21:23)
[2017-09-14] MEDS: POLYETHYLENE GLYCOL POWDER 17 GM PACK PO SCH (08:51)
[2017-09-14] MEDS: DOCUSATE SODIUM 100 MG CAPSULE PO SCH ×2 (08:51→21:24)
[2017-09-14] MEDS: MULTIVITAMIN (CENTRUM) TABLET PO SCH (08:51)
[2017-09-14] MEDS: CLOPIDOGREL 75 MG TABLET PO SCH (08:52)
[2017-09-14] MEDS: ALLOPURINOL 100 MG TABLET PO SCH (08:52)
[2017-09-14] MEDS: CHOLECALCIFEROL 1,000 UNIT TABLET PO SCH (08:52)
[2017-09-14] MEDS: ASPIRIN EC 81 MG TABLET PO SCH (08:52)
[2017-09-14] MEDS: GABAPENTIN 100 MG CAPSULE PO SCH ×3 (08:52→21:23)
[2017-09-14 10:48] LABS: Basophils # 0.1 10*3/uL (0.0-0.2); Basophils % 0.8 % (0.0-0.8); Eosinophils # 0.9 10*3/uL (0.0-0.87); Eosinophils % 8.9 % (0.00-10.9); Hematocrit 30.2 VOL% (35.7-47.0); Hemoglobin 9.8 GM/DL (12.0-16.0); Immature Granulocytes % 0.5 %; Immature Granulocytes Absolute 0.05 #; Lymphocytes # 2.3 10*3/uL (1.4-4.0); Lymphocytes % 23.5 % (21.3-54.2); Mean Corpuscular HGB Conc 32.5 GM/DL (32-36); Mean Corpuscular Hemoglobin 29 PG (27-34); Mean Corpuscular Volume 88.8 FL (87-102); Mean Platelet Volume 10.7 FL (9.6-12.0); Monocytes # 0.9 10*3/uL (0.11-0.8); Monocytes % 9.8 % (1.7-12.7); Neutrophils # 5.4 10*3/uL (1.4-7.4); Neutrophils % 56.5 % (38.7-73.9); Platelet Count 558 T/CUMM (130-400); Red Cell Distribution Width 13.5 % (9.3-17.3); White Blood Count 9.6 T/CUMM (4-12)
[2017-09-14] MEDS ORDERED: VANCOMYCIN INJ 1,000 MG in SODIUM CHLORIDE 0.9% 250 ML IV ONE (11:00)
[2017-09-14] MEDS: INSULIN NPH/REGULAR 70/30 100 UNIT/ML SUBCUT SCH ×2 (11:24→21:30)
[2017-09-14] MEDS ORDERED: BUPIVACAINE 0.5% 50 ML VIAL ONE (13:28)
[2017-09-14] MEDS ORDERED: ONDANSETRON 4 MG/2 ML VIAL ONE (14:57)
[2017-09-14] MEDS ORDERED: HYDROmorphone 2 MG/1 ML VIAL ONE (14:57)
[2017-09-14] MEDS: HYDROmorphone 2 MG/1 ML VIAL IV PRN ×5 (15:00→21:20)
[2017-09-14] MEDS ORDERED: ONDANSETRON 4 MG/2 ML VIAL IV PRN (15:01)
[2017-09-14] MEDS ORDERED: SEVOFLURANE 1 UNIT/15 MINUTE INH ONE (15:03)
[2017-09-14] MEDS ORDERED: PHENYLEPHRINE 10 MG/1 ML VIAL IV ONE (15:03)
[2017-09-14] MEDS ORDERED: fentaNYL 100 MCG/2 ML VIAL ONE (15:03)
[2017-09-14] MEDS ORDERED: PROPOFOL 200 MG/20 ML VIAL IV ONE (15:03)
[2017-09-14] MEDS: VANCOMYCIN INJ 1,000 MG in SODIUM CHLORIDE 0.9% 250 ML IV SCH (18:10)
[2017-09-14] MEDS: ATORVASTATIN 20 MG TABLET PO SCH (21:24)
[2017-09-15] MEDS: HYDROmorphone 2 MG/1 ML VIAL IV PRN ×4 (01:14→19:05)
[2017-09-15] MEDS ORDERED: DEXTROSE 50% 25 GM/50 ML VIAL IV PRN (06:53)
[2017-09-15] MEDS ORDERED: GLUCAGON 1 MG VIAL IM PRN (06:53)
[2017-09-15] MEDS: INSULIN NPH/REGULAR 70/30 100 UNIT/ML SUBCUT SCH ×2 (08:29→20:54)
[2017-09-15] MEDS: INSULIN LISPRO 100 UNIT/ML SUBCUT SCH ×4 (08:29→20:54)
[2017-09-15] MEDS: POLYETHYLENE GLYCOL POWDER 17 GM PACK PO SCH (09:29)
[2017-09-15] MEDS: CHOLECALCIFEROL 1,000 UNIT TABLET PO SCH (09:29)
[2017-09-15] MEDS: ALLOPURINOL 100 MG TABLET PO SCH (09:30)
[2017-09-15] MEDS: MULTIVITAMIN (CENTRUM) TABLET PO SCH (09:30)
[2017-09-15] MEDS: GABAPENTIN 100 MG CAPSULE PO SCH ×3 (09:30→20:53)
[2017-09-15] MEDS: CARVEDILOL 12.5 MG TABLET PO SCH ×2 (09:30→17:10)
[2017-09-15] MEDS: DOCUSATE SODIUM 100 MG CAPSULE PO SCH ×2 (09:30→20:53)
[2017-09-15] MEDS: ASPIRIN EC 81 MG TABLET PO SCH (09:30)
[2017-09-15] MEDS: DOXYCYCLINE HYCLATE 100 MG CAPSULE PO SCH ×2 (09:30→20:53)
[2017-09-15] MEDS: CLOPIDOGREL 75 MG TABLET PO SCH (09:30)
[2017-09-15] MEDS: METHOCARBAMOL 750 MG TABLET PO PRN (15:00)
[2017-09-15] MEDS: VANCOMYCIN INJ 1,000 MG in SODIUM CHLORIDE 0.9% 250 ML IV SCH (16:40)
[2017-09-15] MEDS: ATORVASTATIN 20 MG TABLET PO SCH (20:53)
[2017-09-16 04:27] LABS: Basophils # 0.1 10*3/uL (0.0-0.2); Eosinophils # 0.7 10*3/uL (0.0-0.87); Eosinophils % 7.2 % (0.00-10.9); Hematocrit 28.4 VOL% (35.7-47.0); Hemoglobin 8.8 GM/DL (12.0-16.0); Immature Granulocytes % 0.4 %; Immature Granulocytes Absolute 0.04 #; Lymphocytes # 1.7 10*3/uL (1.4-4.0); Lymphocytes % 18.3 % (21.3-54.2); Mean Corpuscular Hemoglobin 29 PG (27-34); Mean Corpuscular Volume 92.8 FL (87-102); Mean Platelet Volume 10.8 FL (9.6-12.0); Monocytes # 1.1 10*3/uL (0.11-0.8); Monocytes % 11.8 % (1.7-12.7); Neutrophils # 5.6 10*3/uL (1.4-7.4); Neutrophils % 61.3 % (38.7-73.9); Platelet Count 488 T/CUMM (130-400); Red Blood Count 3.06 MC/CUMM (3.8-5.5); Red Cell Distribution Width 13.3 % (9.3-17.3); White Blood Count 9.2 T/CUMM (4-12)
[2017-09-16 05:10] LABS: Calcium 8.2 MG/DL (8.5-10.1); Osmolality,Calculated 286.1 MOS/KG (273-304); Potassium 4.8 MMOL/L (3.5-5.1)
[2017-09-16] MEDS: HYDROmorphone 2 MG/1 ML VIAL IV PRN ×4 (05:37→19:25)
[2017-09-16] MEDS: MULTIVITAMIN (CENTRUM) TABLET PO SCH (08:32)
[2017-09-16] MEDS: CLOPIDOGREL 75 MG TABLET PO SCH (08:32)
[2017-09-16] MEDS: GABAPENTIN 100 MG CAPSULE PO SCH ×3 (08:32→21:57)
[2017-09-16] MEDS: CHOLECALCIFEROL 1,000 UNIT TABLET PO SCH (08:32)
[2017-09-16] MEDS: ALLOPURINOL 100 MG TABLET PO SCH (08:32)
[2017-09-16] MEDS: DOXYCYCLINE HYCLATE 100 MG CAPSULE PO SCH ×2 (08:32→21:57)
[2017-09-16] MEDS: ASPIRIN EC 81 MG TABLET PO SCH (08:32)
[2017-09-16] MEDS: CARVEDILOL 12.5 MG TABLET PO SCH ×2 (08:32→16:19)
[2017-09-16] MEDS: DOCUSATE SODIUM 100 MG CAPSULE PO SCH ×2 (08:32→21:57)
[2017-09-16] MEDS: INSULIN LISPRO 100 UNIT/ML SUBCUT SCH ×4 (08:32→21:58)
[2017-09-16] MEDS: INSULIN NPH/REGULAR 70/30 100 UNIT/ML SUBCUT SCH ×2 (08:33→21:57)
[2017-09-16] MEDS: POLYETHYLENE GLYCOL POWDER 17 GM PACK PO SCH (08:33)
[2017-09-16] MEDS ORDERED: SODIUM CHLORIDE 0.9% 1,000 ML IV PRN (15:10)
[2017-09-16] MEDS: METHOCARBAMOL 750 MG TABLET PO PRN (16:19)
[2017-09-16] MEDS: VANCOMYCIN INJ 1,000 MG in SODIUM CHLORIDE 0.9% 250 ML IV SCH (17:44)
[2017-09-16] MEDS: ATORVASTATIN 20 MG TABLET PO SCH (21:57)
[2017-09-17 06:01] LABS: Basophils # 0.1 10*3/uL (0.0-0.2); Basophils % 0.8 % (0.0-0.8); Eosinophils # 0.6 10*3/uL (0.0-0.87); Eosinophils % 6.5 % (0.00-10.9); Hematocrit 33.7 VOL% (35.7-47.0); Hemoglobin 10.8 GM/DL (12.0-16.0); Immature Granulocytes % 0.4 %; Immature Granulocytes Absolute 0.04 #; Lymphocytes # 1.8 10*3/uL (1.4-4.0); Lymphocytes % 18.9 % (21.3-54.2); Mean Corpuscular Hemoglobin 28 PG (27-34); Mean Corpuscular Volume 88.2 FL (87-102); Mean Platelet Volume 10.5 FL (9.6-12.0); Monocytes # 1.2 10*3/uL (0.11-0.8); Monocytes % 11.8 % (1.7-12.7); Neutrophils % 61.6 % (38.7-73.9); Platelet Count 455 T/CUMM (130-400); Red Blood Count 3.82 MC/CUMM (3.8-5.5); Red Cell Distribution Width 13.8 % (9.3-17.3); White Blood Count 9.7 T/CUMM (4-12)
[2017-09-17 06:25] LABS: Calcium 8.6 MG/DL (8.5-10.1); Osmolality,Calculated 288.1 MOS/KG (273-304); Potassium 4.7 MMOL/L (3.5-5.1)
[2017-09-17] MEDS: DOXYCYCLINE HYCLATE 100 MG CAPSULE PO SCH ×2 (08:45→20:46)
[2017-09-17] MEDS: CLOPIDOGREL 75 MG TABLET PO SCH (08:45)
[2017-09-17] MEDS: GABAPENTIN 100 MG CAPSULE PO SCH ×3 (08:45→20:47)
[2017-09-17] MEDS: METHOCARBAMOL 750 MG TABLET PO PRN ×2 (08:45→16:40)
[2017-09-17] MEDS: MULTIVITAMIN (CENTRUM) TABLET PO SCH (08:45)
[2017-09-17] MEDS: CHOLECALCIFEROL 1,000 UNIT TABLET PO SCH (08:45)
[2017-09-17] MEDS: ASPIRIN EC 81 MG TABLET PO SCH (08:45)
[2017-09-17] MEDS: DOCUSATE SODIUM 100 MG CAPSULE PO SCH ×2 (08:45→20:47)
[2017-09-17] MEDS: ALLOPURINOL 100 MG TABLET PO SCH (08:45)
[2017-09-17] MEDS: CARVEDILOL 12.5 MG TABLET PO SCH ×2 (08:45→16:40)
[2017-09-17] MEDS: INSULIN LISPRO 100 UNIT/ML SUBCUT SCH ×4 (08:46→20:51)
[2017-09-17] MEDS: POLYETHYLENE GLYCOL POWDER 17 GM PACK PO SCH (08:46)
[2017-09-17] MEDS: INSULIN NPH/REGULAR 70/30 100 UNIT/ML SUBCUT SCH ×2 (08:46→20:48)
[2017-09-17 09:57] LABS: Troponin I Only < 0.015 NG/ML (0.00-0.045)
[2017-09-17] MEDS: LIDOCAINE 5% PATCH TRANSDERM SCH (09:57)
[2017-09-17] MEDS: NAPROXEN 250 MG TABLET PO PRN (09:57)
[2017-09-17] MEDS: VANCOMYCIN INJ 1,000 MG in SODIUM CHLORIDE 0.9% 250 ML IV SCH (16:40)
[2017-09-17] MEDS: ATORVASTATIN 20 MG TABLET PO SCH (20:47)
[2017-09-17] MEDS: tiZANidine 4 MG TABLET PO PRN (20:49)
[2017-09-18] MEDS: INSULIN LISPRO 100 UNIT/ML SUBCUT SCH ×4 (10:05→22:01)
[2017-09-18] MEDS: DOXYCYCLINE HYCLATE 100 MG CAPSULE PO SCH ×2 (10:07→22:01)
[2017-09-18] MEDS: MULTIVITAMIN (CENTRUM) TABLET PO SCH (10:08)
[2017-09-18] MEDS: CHOLECALCIFEROL 1,000 UNIT TABLET PO SCH (10:08)
[2017-09-18] MEDS: GABAPENTIN 100 MG CAPSULE PO SCH ×3 (10:08→22:01)
[2017-09-18] MEDS: CLOPIDOGREL 75 MG TABLET PO SCH (10:09)
[2017-09-18] MEDS: ALLOPURINOL 100 MG TABLET PO SCH (10:09)
[2017-09-18] MEDS: ASPIRIN EC 81 MG TABLET PO SCH (10:10)
[2017-09-18] MEDS: INSULIN NPH/REGULAR 70/30 100 UNIT/ML SUBCUT SCH ×2 (10:10→22:07)
[2017-09-18] MEDS: CARVEDILOL 12.5 MG TABLET PO SCH ×2 (10:10→16:55)
[2017-09-18] MEDS: DOCUSATE SODIUM 100 MG CAPSULE PO SCH ×2 (10:10→22:02)
[2017-09-18] MEDS: POLYETHYLENE GLYCOL POWDER 17 GM PACK PO SCH (10:11)
[2017-09-18] MEDS: LIDOCAINE 5% PATCH TRANSDERM SCH (10:12)
[2017-09-18] MEDS: METHOCARBAMOL 750 MG TABLET PO PRN (13:09)
[2017-09-18] MEDS: oxyCODONE/ACETAMINOPHEN 5-325 MG TABLET PO PRN (16:56)
[2017-09-18] MEDS: VANCOMYCIN INJ 1,000 MG in SODIUM CHLORIDE 0.9% 250 ML IV SCH (17:03)
[2017-09-18] MEDS: ATORVASTATIN 20 MG TABLET PO SCH (22:01)
[2017-09-18] MEDS: tiZANidine 4 MG TABLET PO PRN (22:03)
[2017-09-18] MEDS: diphenhydrAMINE 50 MG/1 ML VIAL IV PRN (23:52)
[2017-09-19] MEDS: INSULIN LISPRO 100 UNIT/ML SUBCUT SCH ×4 (09:40→22:12)
[2017-09-19] MEDS: oxyCODONE/ACETAMINOPHEN 5-325 MG TABLET PO PRN ×3 (09:41→22:11)
[2017-09-19] MEDS: CLOPIDOGREL 75 MG TABLET PO SCH (09:41)
[2017-09-19] MEDS: DOCUSATE SODIUM 100 MG CAPSULE PO SCH ×2 (09:42→22:10)
[2017-09-19] MEDS: ALLOPURINOL 100 MG TABLET PO SCH (09:42)
[2017-09-19] MEDS: GABAPENTIN 100 MG CAPSULE PO SCH ×3 (09:42→22:11)
[2017-09-19] MEDS: DOXYCYCLINE HYCLATE 100 MG CAPSULE PO SCH ×2 (09:43→22:11)
[2017-09-19] MEDS: CARVEDILOL 12.5 MG TABLET PO SCH ×2 (09:43→19:09)
[2017-09-19] MEDS: MULTIVITAMIN (CENTRUM) TABLET PO SCH (09:43)
[2017-09-19] MEDS: CHOLECALCIFEROL 1,000 UNIT TABLET PO SCH (09:43)
[2017-09-19] MEDS: ASPIRIN EC 81 MG TABLET PO SCH (09:43)
[2017-09-19] MEDS: POLYETHYLENE GLYCOL POWDER 17 GM PACK PO SCH (09:44)
[2017-09-19] MEDS: INSULIN NPH/REGULAR 70/30 100 UNIT/ML SUBCUT SCH ×2 (09:44→22:12)
[2017-09-19] MEDS: LIDOCAINE 5% PATCH TRANSDERM SCH (10:02)
[2017-09-19] MEDS: HYDROmorphone 2 MG/1 ML VIAL IV PRN (13:23)
[2017-09-19] MEDS: METHOCARBAMOL 750 MG TABLET PO PRN (19:09)
[2017-09-19] MEDS: VANCOMYCIN INJ 1,000 MG in SODIUM CHLORIDE 0.9% 250 ML IV SCH (19:12)
[2017-09-19] MEDS: CLOTRIMAZOLE/BETAMETHASONE CREAM 15 GM TUBE TOP SCH (22:10)
[2017-09-19] MEDS: ATORVASTATIN 20 MG TABLET PO SCH (22:11)
[2017-09-19] MEDS: ONDANSETRON 4 MG TABLET PO PRN (22:24)
[2017-09-20 05:51] LABS: Basophils # 0.1 10*3/uL (0.0-0.2); Basophils % 0.7 % (0.0-0.8); Eosinophils # 0.5 10*3/uL (0.0-0.87); Eosinophils % 5.3 % (0.00-10.9); Hematocrit 34.7 VOL% (35.7-47.0); Hemoglobin 11.3 GM/DL (12.0-16.0); Immature Granulocytes % 0.6 %; Immature Granulocytes Absolute 0.05 #; Lymphocytes # 1.9 10*3/uL (1.4-4.0); Lymphocytes % 21.1 % (21.3-54.2); Mean Corpuscular HGB Conc 32.6 GM/DL (32-36); Mean Corpuscular Hemoglobin 29 PG (27-34); Mean Corpuscular Volume 88.3 FL (87-102); Mean Platelet Volume 10.8 FL (9.6-12.0); Monocytes % 10.8 % (1.7-12.7); Neutrophils # 5.5 10*3/uL (1.4-7.4); Neutrophils % 61.5 % (38.7-73.9); Platelet Count 444 T/CUMM (130-400); Red Blood Count 3.93 MC/CUMM (3.8-5.5); Red Cell Distribution Width 13.8 % (9.3-17.3); White Blood Count 8.9 T/CUMM (4-12)
[2017-09-20 06:20] LABS: Calcium 8.4 MG/DL (8.5-10.1); Potassium 4.5 MMOL/L (3.5-5.1)
[2017-09-20] MEDS: MULTIVITAMIN (CENTRUM) TABLET PO SCH (08:09)
[2017-09-20] MEDS: CARVEDILOL 12.5 MG TABLET PO SCH ×2 (08:09→16:18)
[2017-09-20] MEDS: ASPIRIN EC 81 MG TABLET PO SCH (08:09)
[2017-09-20] MEDS: CLOTRIMAZOLE/BETAMETHASONE CREAM 15 GM TUBE TOP SCH ×2 (08:09→20:50)
[2017-09-20] MEDS: DOCUSATE SODIUM 100 MG CAPSULE PO SCH ×2 (08:09→20:49)
[2017-09-20] MEDS: LIDOCAINE 5% PATCH TRANSDERM SCH (08:10)
[2017-09-20] MEDS: GABAPENTIN 100 MG CAPSULE PO SCH ×3 (08:10→20:46)
[2017-09-20] MEDS: DOXYCYCLINE HYCLATE 100 MG CAPSULE PO SCH ×2 (08:10→20:46)
[2017-09-20] MEDS: CHOLECALCIFEROL 1,000 UNIT TABLET PO SCH (08:10)
[2017-09-20] MEDS: ALLOPURINOL 100 MG TABLET PO SCH (08:10)
[2017-09-20] MEDS: POLYETHYLENE GLYCOL POWDER 17 GM PACK PO SCH (08:10)
[2017-09-20] MEDS: CLOPIDOGREL 75 MG TABLET PO SCH (08:10)
[2017-09-20] MEDS: METHOCARBAMOL 750 MG TABLET PO PRN ×2 (08:10→16:18)
[2017-09-20] MEDS: oxyCODONE/ACETAMINOPHEN 5-325 MG TABLET PO PRN ×2 (08:10→13:57)
[2017-09-20] MEDS: INSULIN NPH/REGULAR 70/30 100 UNIT/ML SUBCUT SCH ×2 (09:15→20:50)
[2017-09-20] MEDS: INSULIN LISPRO 100 UNIT/ML SUBCUT SCH ×4 (09:15→20:47)
[2017-09-20] MEDS: NAPROXEN 250 MG TABLET PO PRN (11:50)
[2017-09-20] MEDS: VANCOMYCIN INJ 1,000 MG in SODIUM CHLORIDE 0.9% 250 ML IV SCH (16:18)
[2017-09-20] MEDS: ATORVASTATIN 20 MG TABLET PO SCH (20:46)
[2017-09-21] MEDS: oxyCODONE/ACETAMINOPHEN 5-325 MG TABLET PO PRN ×4 (02:11→19:45)
[2017-09-21] MEDS: METHOCARBAMOL 750 MG TABLET PO PRN ×3 (04:30→21:36)
[2017-09-21 06:02] LABS: Calcium 8.8 MG/DL (8.5-10.1); Osmolality,Calculated 290.8 MOS/KG (273-304); Potassium 4.5 MMOL/L (3.5-5.1)
[2017-09-21] MEDS: ALLOPURINOL 100 MG TABLET PO SCH (08:12)
[2017-09-21] MEDS: MULTIVITAMIN (CENTRUM) TABLET PO SCH (08:12)
[2017-09-21] MEDS: CARVEDILOL 12.5 MG TABLET PO SCH ×2 (08:12→17:15)
[2017-09-21] MEDS: ASPIRIN EC 81 MG TABLET PO SCH (08:12)
[2017-09-21] MEDS: DOXYCYCLINE HYCLATE 100 MG CAPSULE PO SCH ×2 (08:12→21:36)
[2017-09-21] MEDS: CLOPIDOGREL 75 MG TABLET PO SCH (08:12)
[2017-09-21] MEDS: GABAPENTIN 100 MG CAPSULE PO SCH ×3 (08:12→21:36)
[2017-09-21] MEDS: DOCUSATE SODIUM 100 MG CAPSULE PO SCH ×3 (08:12→21:38)
[2017-09-21] MEDS: CHOLECALCIFEROL 1,000 UNIT TABLET PO SCH (08:12)
[2017-09-21] MEDS: POLYETHYLENE GLYCOL POWDER 17 GM PACK PO SCH (08:13)
[2017-09-21] MEDS: INSULIN LISPRO 100 UNIT/ML SUBCUT SCH ×4 (08:13→21:36)
[2017-09-21] MEDS: INSULIN NPH/REGULAR 70/30 100 UNIT/ML SUBCUT SCH ×2 (08:13→21:37)
[2017-09-21] MEDS: CLOTRIMAZOLE/BETAMETHASONE CREAM 15 GM TUBE TOP SCH ×2 (08:13→21:37)
[2017-09-21] MEDS: LIDOCAINE 5% PATCH TRANSDERM SCH (08:13)
[2017-09-21] MEDS: NAPROXEN 250 MG TABLET PO PRN (11:14)
[2017-09-21] MEDS: diphenhydrAMINE 50 MG/1 ML VIAL IV PRN (17:02)
[2017-09-21] MEDS: VANCOMYCIN INJ 1,000 MG in SODIUM CHLORIDE 0.9% 250 ML IV SCH (17:15)
[2017-09-21] MEDS: tiZANidine 4 MG TABLET PO PRN (21:36)
[2017-09-21] MEDS: ATORVASTATIN 20 MG TABLET PO SCH (21:36)
[2017-09-21] MEDS: ONDANSETRON 4 MG TABLET PO PRN (21:43)
[2017-09-22] MEDS: oxyCODONE/ACETAMINOPHEN 5-325 MG TABLET PO PRN (05:54)
[2017-09-22] MEDS: INSULIN LISPRO 100 UNIT/ML SUBCUT SCH (09:34)
[2017-09-22] MEDS: DOXYCYCLINE HYCLATE 100 MG CAPSULE PO SCH (09:36)
[2017-09-22] MEDS: ALLOPURINOL 100 MG TABLET PO SCH (09:36)
[2017-09-22] MEDS: CHOLECALCIFEROL 1,000 UNIT TABLET PO SCH (09:36)
[2017-09-22] MEDS: GABAPENTIN 100 MG CAPSULE PO SCH (09:36)
[2017-09-22] MEDS: CLOPIDOGREL 75 MG TABLET PO SCH (09:36)
[2017-09-22] MEDS: MULTIVITAMIN (CENTRUM) TABLET PO SCH (09:36)
[2017-09-22] MEDS: LIDOCAINE 5% PATCH TRANSDERM SCH (09:37)
[2017-09-22] MEDS: ASPIRIN EC 81 MG TABLET PO SCH (09:37)
[2017-09-22] MEDS: DOCUSATE SODIUM 100 MG CAPSULE PO SCH (09:37)
[2017-09-22] MEDS: CARVEDILOL 12.5 MG TABLET PO SCH (09:37)
[2017-09-22] MEDS: INSULIN NPH/REGULAR 70/30 100 UNIT/ML SUBCUT SCH (09:39)
[2017-09-22] MEDS: POLYETHYLENE GLYCOL POWDER 17 GM PACK PO SCH (09:45)
[2017-09-22 10:47] VITALS: BP 145/66
== END 2017-09-22 11:00 | DRG 173 ==
LOC: SUATTDRO 11:44 → N.3E 11:44
PROVIDERS: ADMIT Internal Medicine; ATTEND Family Medicine

== ENCOUNTER 2017-10-27 12:43 | Inpatient (IN) ==
[2017-10-27] MEDS ORDERED: ASPIRIN 325 MG TABLET PO STA (13:07)
[2017-10-27] MEDS ORDERED: NITROGLYCERIN SL 0.4 MG TABLET SL PRN (13:11)
[2017-10-27 13:19] LABS: Basophils # 0.1 10*3/uL (0.0-0.2); Basophils % 0.8 % (0.0-0.8); Eosinophils # 0.3 10*3/uL (0.0-0.87); Eosinophils % 3.1 % (0.00-10.9); Hematocrit 33.3 VOL% (35.7-47.0); Hemoglobin 10.4 GM/DL (12.0-16.0); Immature Granulocytes % 0.6 %; Immature Granulocytes Absolute 0.05 #; Lymphocytes # 1.4 10*3/uL (1.4-4.0); Mean Corpuscular HGB Conc 31.2 GM/DL (32-36); Mean Corpuscular Hemoglobin 29 PG (27-34); Mean Corpuscular Volume 91.7 FL (87-102); Mean Platelet Volume 10.3 FL (9.6-12.0); Monocytes # 0.5 10*3/uL (0.11-0.8); Neutrophils # 6.1 10*3/uL (1.4-7.4); Neutrophils % 72.5 % (38.7-73.9); Platelet Count 435 T/CUMM (130-400); Red Blood Count 3.63 MC/CUMM (3.8-5.5); Red Cell Distribution Width 15.5 % (9.3-17.3); White Blood Count 8.4 T/CUMM (4-12)
[2017-10-27] MEDS ORDERED: LEVOFLOXACIN INJ 500 MG in PREMIX 1 EACH IV STA (13:34)
[2017-10-27 13:51] LABS: Alanine Aminotransferase 26 U/L (13-56); Albumin 2.2 G/DL (3.4-5.0); Alkaline Phosphatase 245 U/L (45-117); Aspartate Amino Transferase 22 U/L (0-37); Bilirubin,Total < 0.39 MG/DL (0.2-1.0); Blood Urea Nitrogen 28 MG/DL (7-18); Calcium 8.4 MG/DL (8.5-10.1); Glucose 316 MG/DL (74-106); Osmolality,Calculated 290.8 MOS/KG (273-304); Potassium 4.8 MMOL/L (3.5-5.1); Sodium 137 MMOL/L (136-145); Total Protein 7.3 G/DL (6.4-8.3); Troponin I Only 0.027 NG/ML (0.00-0.045)
[2017-10-27 13:57] LABS: Apearance,Urine CLOUDY (Clear); Bacteria,Urine Moderate /HPF (Few); Bilirubin,Urine Negative (Negative); Blood, Urine Small mg/dL (Negative); Glucose,Urine (UA) >=500 mg/dL (Negative); Ketones,Urine 5 mg/dL (Negative); Nitrite,Urine Positive (Negative); Protein,Urine >=500 MG/DL; RBC,Urine 2 /HPF (0-4); Squamous Epithelial Cell,Urine Occasional /HPF (0-10); Urine Color Yellow (Yellow); Urine Specific Gravity 1.009 (1.001-1.035); Urine Urobilinogen < 2.0 EU/DL (0.2-1.0); WBC,Urine 22 /HPF (0-6)
[2017-10-27] MEDS ORDERED: hydrALAZINE 20 MG/1 ML VIAL IV STA (15:14)
[2017-10-27] MEDS ORDERED: NITROGLYCERIN 2% OINT 1 INCH/GM PACK TOP STA (15:14)
[2017-10-27] MEDS ORDERED: cloNIDine 0.1 MG TABLET PO ONE (16:30)
[2017-10-27] MEDS ORDERED: LACTULOSE 20 GM/30 ML UDCUP PO PRN (17:19)
[2017-10-27] MEDS ORDERED: GLUCAGON 1 MG VIAL IM PRN (17:19)
[2017-10-27] MEDS ORDERED: DEXTROSE 50% 25 GM/50 ML VIAL IV PRN (17:19)
[2017-10-27] MEDS ORDERED: ALBUTEROL/IPRATROPIUM 3 ML NEB RESP TX PRN (17:19)
[2017-10-27] MEDS: FUROSEMIDE 40 MG/4 ML VIAL IV SCH ×2 (17:59→18:05)
[2017-10-27] MEDS ORDERED: LEVOFLOXACIN INJ 750 MG in PREMIX 1 EACH IV SCH (18:00)
[2017-10-27] MEDS: MORPHINE 4 MG/1 ML VIAL IV PRN (20:47)
[2017-10-27] MEDS: INSULIN LISPRO 100 UNIT/ML SUBCUT SCH (20:47)
[2017-10-27] MEDS: CARVEDILOL 25 MG TABLET PO SCH (20:47)
[2017-10-27] MEDS: ONDANSETRON 4 MG/2 ML VIAL IV PRN (20:52)
[2017-10-27] MEDS: ACETAMINOPHEN 325 MG TABLET PO PRN (23:03)
[2017-10-28] MEDS: MORPHINE 4 MG/1 ML VIAL IV PRN ×3 (02:11→21:11)
[2017-10-28] MEDS: ONDANSETRON 4 MG/2 ML VIAL IV PRN ×2 (02:15→21:14)
[2017-10-28 06:50] LABS: Basophils % 0.7 % (0.0-0.8); Eosinophils # 0.2 10*3/uL (0.0-0.87); Eosinophils % 2.7 % (0.00-10.9); Hematocrit 27.5 VOL% (35.7-47.0); Hemoglobin 8.8 GM/DL (12.0-16.0); Immature Granulocytes % 0.7 %; Immature Granulocytes Absolute 0.04 #; Lymphocytes # 2.2 10*3/uL (1.4-4.0); Lymphocytes % 38.4 % (21.3-54.2); Mean Corpuscular Hemoglobin 29 PG (27-34); Mean Corpuscular Volume 89.6 FL (87-102); Mean Platelet Volume 10.5 FL (9.6-12.0); Monocytes # 0.7 10*3/uL (0.11-0.8); Monocytes % 11.9 % (1.7-12.7); Neutrophils # 2.6 10*3/uL (1.4-7.4); Neutrophils % 45.6 % (38.7-73.9); Platelet Count 394 T/CUMM (130-400); Red Blood Count 3.07 MC/CUMM (3.8-5.5); Red Cell Distribution Width 15.7 % (9.3-17.3); White Blood Count 5.6 T/CUMM (4-12)
[2017-10-28 07:21] LABS: Calcium 8.6 MG/DL (8.5-10.1); Osmolality,Calculated 289.4 MOS/KG (273-304); Potassium 3.9 MMOL/L (3.5-5.1); VLDL CHOLESTEROL 69.2 MG/DL
[2017-10-28] MEDS: INSULIN LISPRO 100 UNIT/ML SUBCUT SCH ×4 (07:31→21:07)
[2017-10-28] MEDS: CARVEDILOL 25 MG TABLET PO SCH ×2 (09:34→21:16)
[2017-10-28] MEDS: FUROSEMIDE 40 MG/4 ML VIAL IV SCH ×2 (09:34→21:09)
[2017-10-28] MEDS: LOSARTAN 50 MG TABLET PO SCH (09:34)
[2017-10-28] MEDS: ALLOPURINOL 100 MG TABLET PO SCH (09:35)
[2017-10-28] MEDS: PANTOPRAZOLE 40 MG TABLET PO SCH (09:35)
[2017-10-28] MEDS: ACETAMINOPHEN 325 MG TABLET PO PRN ×2 (09:51→16:58)
[2017-10-28] MEDS: ATORVASTATIN 20 MG TABLET PO SCH (21:07)
[2017-10-29] MEDS: MORPHINE 4 MG/1 ML VIAL IV PRN ×4 (01:36→20:54)
[2017-10-29] MEDS: ACETAMINOPHEN 325 MG TABLET PO PRN ×3 (04:02→13:50)
[2017-10-29 07:04] LABS: Basophils # 0.1 10*3/uL (0.0-0.2); Basophils % 0.9 % (0.0-0.8); Eosinophils # 0.3 10*3/uL (0.0-0.87); Eosinophils % 4.5 % (0.00-10.9); Hematocrit 29.3 VOL% (35.7-47.0); Hemoglobin 9.3 GM/DL (12.0-16.0); Immature Granulocytes % 0.4 %; Immature Granulocytes Absolute 0.03 #; Lymphocytes # 2.4 10*3/uL (1.4-4.0); Lymphocytes % 34.1 % (21.3-54.2); Mean Corpuscular HGB Conc 31.7 GM/DL (32-36); Mean Corpuscular Hemoglobin 29 PG (27-34); Mean Corpuscular Volume 91.6 FL (87-102); Mean Platelet Volume 10.9 FL (9.6-12.0); Monocytes # 0.8 10*3/uL (0.11-0.8); Monocytes % 11.5 % (1.7-12.7); Neutrophils # 3.4 10*3/uL (1.4-7.4); Neutrophils % 48.6 % (38.7-73.9); Platelet Count 408 T/CUMM (130-400); Red Cell Distribution Width 15.9 % (9.3-17.3)
[2017-10-29 07:06] LABS: Calcium 8.4 MG/DL (8.5-10.1); Osmolality,Calculated 292.7 MOS/KG (273-304); Potassium 4.1 MMOL/L (3.5-5.1)
[2017-10-29] MEDS: INSULIN LISPRO 100 UNIT/ML SUBCUT SCH ×4 (08:38→20:49)
[2017-10-29] MEDS: ALLOPURINOL 100 MG TABLET PO SCH (08:39)
[2017-10-29] MEDS: CARVEDILOL 25 MG TABLET PO SCH ×2 (08:39→20:49)
[2017-10-29] MEDS: PANTOPRAZOLE 40 MG TABLET PO SCH (08:39)
[2017-10-29] MEDS: FUROSEMIDE 40 MG/4 ML VIAL IV SCH (08:41)
[2017-10-29] MEDS: LOSARTAN 50 MG TABLET PO SCH (09:30)
[2017-10-29] MEDS: NITROFURANTOIN MACRO/MONO 100 MG CAPSULE PO SCH (17:28)
[2017-10-29] MEDS: ATORVASTATIN 20 MG TABLET PO SCH (20:49)
[2017-10-29] MEDS: ONDANSETRON 4 MG/2 ML VIAL IV PRN (20:52)
[2017-10-30] MEDS: MORPHINE 4 MG/1 ML VIAL IV PRN ×4 (00:56→20:07)
[2017-10-30 06:05] LABS: Basophils # 0.1 10*3/uL (0.0-0.2); Basophils % 0.9 % (0.0-0.8); Eosinophils # 0.3 10*3/uL (0.0-0.87); Eosinophils % 4.1 % (0.00-10.9); Hematocrit 29.7 VOL% (35.7-47.0); Hemoglobin 9.8 GM/DL (12.0-16.0); Immature Granulocytes % 0.5 %; Immature Granulocytes Absolute 0.04 #; Lymphocytes # 2.3 10*3/uL (1.4-4.0); Mean Corpuscular Hemoglobin 29 PG (27-34); Mean Corpuscular Volume 88.7 FL (87-102); Mean Platelet Volume 10.2 FL (9.6-12.0); Monocytes # 0.7 10*3/uL (0.11-0.8); Monocytes % 9.9 % (1.7-12.7); Neutrophils % 53.6 % (38.7-73.9); Platelet Count 415 T/CUMM (130-400); Red Blood Count 3.35 MC/CUMM (3.8-5.5); Red Cell Distribution Width 15.4 % (9.3-17.3); White Blood Count 7.5 T/CUMM (4-12)
[2017-10-30 06:34] LABS: Calcium 8.8 MG/DL (8.5-10.1); Osmolality,Calculated 289.5 MOS/KG (273-304); Potassium 3.9 MMOL/L (3.5-5.1)
[2017-10-30] MEDS: NITROFURANTOIN MACRO/MONO 100 MG CAPSULE PO SCH ×2 (10:19→16:40)
[2017-10-30] MEDS: INSULIN NPH/REGULAR 70/30 100 UNIT/ML SUBCUT SCH ×2 (10:20→16:41)
[2017-10-30] MEDS: LOSARTAN 50 MG TABLET PO SCH (10:20)
[2017-10-30] MEDS: ALLOPURINOL 100 MG TABLET PO SCH (10:20)
[2017-10-30] MEDS: INSULIN LISPRO 100 UNIT/ML SUBCUT SCH ×4 (10:20→20:18)
[2017-10-30] MEDS: CARVEDILOL 25 MG TABLET PO SCH ×2 (10:20→20:12)
[2017-10-30] MEDS: PANTOPRAZOLE 40 MG TABLET PO SCH (10:20)
[2017-10-30] MEDS ORDERED: FLUCONAZOLE 150 MG TABLET PO ONE (15:04)
[2017-10-30] MEDS: MEROPENEM 1,000 MG in SYRINGE 1 EACH IV SCH (15:23)
[2017-10-30] MEDS: ACETAMINOPHEN 325 MG TABLET PO PRN ×2 (17:47→23:15)
[2017-10-30] MEDS: CLOTRIMAZOLE 1% CREAM 15 GM TUBE TOP SCH (20:12)
[2017-10-31] MEDS: MORPHINE 4 MG/1 ML VIAL IV PRN ×2 (00:10→23:06)
[2017-10-31] MEDS: MEROPENEM 1,000 MG in SYRINGE 1 EACH IV SCH ×2 (03:06→16:52)
[2017-10-31] MEDS: CLOTRIMAZOLE 1% CREAM 15 GM TUBE TOP SCH ×2 (09:30→21:03)
[2017-10-31] MEDS: INSULIN LISPRO 100 UNIT/ML SUBCUT SCH ×4 (09:34→22:26)
[2017-10-31] MEDS: LOSARTAN 50 MG TABLET PO SCH (09:35)
[2017-10-31] MEDS: INSULIN NPH/REGULAR 70/30 100 UNIT/ML SUBCUT SCH ×2 (09:35→17:34)
[2017-10-31] MEDS: NITROFURANTOIN MACRO/MONO 100 MG CAPSULE PO SCH ×2 (09:36→17:48)
[2017-10-31] MEDS: ALLOPURINOL 100 MG TABLET PO SCH (09:36)
[2017-10-31] MEDS: CARVEDILOL 25 MG TABLET PO SCH ×2 (09:36→21:04)
[2017-10-31] MEDS: PANTOPRAZOLE 40 MG TABLET PO SCH (09:36)
[2017-10-31] MEDS: DOCUSATE SODIUM 100 MG CAPSULE PO PRN (09:36)
[2017-10-31] MEDS: ACETAMINOPHEN 325 MG TABLET PO PRN (14:19)
[2017-11-01] MEDS: MEROPENEM 1,000 MG in SYRINGE 1 EACH IV SCH ×2 (03:27→16:32)
[2017-11-01] MEDS ORDERED: MORPHINE 10 MG/1 ML VIAL ONE (09:38)
[2017-11-01] MEDS ORDERED: ONDANSETRON 4 MG/2 ML VIAL ONE ×2 (09:38→09:43)
[2017-11-01] MEDS: MORPHINE 10 MG/1 ML VIAL IV PRN ×4 (09:40→10:00)
[2017-11-01] MEDS ORDERED: PHENYLEPHRINE 1 MG/10 ML SYRINGE IV ONE (09:43)
[2017-11-01] MEDS ORDERED: PROPOFOL 200 MG/20 ML VIAL IV ONE (09:43)
[2017-11-01] MEDS ORDERED: SEVOFLURANE 1 UNIT/15 MINUTE INH ONE (09:43)
[2017-11-01] MEDS ORDERED: fentaNYL 100 MCG/2 ML VIAL ONE (09:43)
[2017-11-01] MEDS ORDERED: ACETAMINOPHEN 1,000 MG/100 ML VIAL IV ONE (09:44)
[2017-11-01] MEDS ORDERED: GABAPENTIN 400 MG CAPSULE ONE (09:46)
[2017-11-01] MEDS ORDERED: MEPERIDINE 25 MG/1 ML VIAL IV PRN (09:59)
[2017-11-01] MEDS ORDERED: ONDANSETRON 4 MG/2 ML VIAL IV PRN (09:59)
[2017-11-01] MEDS ORDERED: MEPERIDINE 25 MG/1 ML VIAL ONE (09:59)
[2017-11-01] MEDS ORDERED: ACETAMINOPHEN INJ 1,000 MG in PREMIX 1 EACH IV ONE (10:03)
[2017-11-01] MEDS ORDERED: MEPERIDINE 25 MG/1 ML VIAL IM ONE (10:04)
[2017-11-01] MEDS: GABAPENTIN 400 MG CAPSULE PO SCH (10:05)
[2017-11-01] MEDS: INSULIN NPH/REGULAR 70/30 100 UNIT/ML SUBCUT SCH ×2 (11:43→16:34)
[2017-11-01] MEDS: INSULIN LISPRO 100 UNIT/ML SUBCUT SCH ×4 (11:44→20:31)
[2017-11-01] MEDS: LOSARTAN 50 MG TABLET PO SCH (11:44)
[2017-11-01] MEDS: CARVEDILOL 25 MG TABLET PO SCH ×2 (11:44→20:30)
[2017-11-01] MEDS: ALLOPURINOL 100 MG TABLET PO SCH (11:45)
[2017-11-01] MEDS: NITROFURANTOIN MACRO/MONO 100 MG CAPSULE PO SCH ×2 (11:45→16:35)
[2017-11-01] MEDS: PANTOPRAZOLE 40 MG TABLET PO SCH (11:45)
[2017-11-01] MEDS: CLOTRIMAZOLE 1% CREAM 15 GM TUBE TOP SCH ×2 (11:45→20:32)
[2017-11-01 14:04] LABS: Calcium 8.8 MG/DL (8.5-10.1); Osmolality,Calculated 288.5 MOS/KG (273-304); Potassium 4.1 MMOL/L (3.5-5.1)
[2017-11-01] MEDS: MORPHINE 4 MG/1 ML VIAL IV PRN ×2 (15:01→20:31)
[2017-11-01] MEDS: oxyCODONE/ACETAMINOPHEN 5-325 MG TABLET PO PRN (18:30)
[2017-11-02] MEDS: MEROPENEM 1,000 MG in SYRINGE 1 EACH IV SCH ×2 (02:36→14:51)
[2017-11-02] MEDS: MORPHINE 4 MG/1 ML VIAL IV PRN ×2 (03:46→22:43)
[2017-11-02] MEDS: GABAPENTIN 400 MG CAPSULE PO SCH (09:46)
[2017-11-02] MEDS: LOSARTAN 50 MG TABLET PO SCH (09:46)
[2017-11-02] MEDS: CARVEDILOL 25 MG TABLET PO SCH ×2 (09:46→20:03)
[2017-11-02] MEDS: NITROFURANTOIN MACRO/MONO 100 MG CAPSULE PO SCH ×2 (09:47→17:22)
[2017-11-02] MEDS: PANTOPRAZOLE 40 MG TABLET PO SCH (09:47)
[2017-11-02] MEDS: ALLOPURINOL 100 MG TABLET PO SCH (09:47)
[2017-11-02] MEDS: oxyCODONE/ACETAMINOPHEN 5-325 MG TABLET PO PRN ×2 (09:48→17:22)
[2017-11-02] MEDS: INSULIN NPH/REGULAR 70/30 100 UNIT/ML SUBCUT SCH ×2 (09:50→16:55)
[2017-11-02] MEDS: INSULIN LISPRO 100 UNIT/ML SUBCUT SCH ×4 (09:50→20:03)
[2017-11-02] MEDS: CLOTRIMAZOLE 1% CREAM 15 GM TUBE TOP SCH ×2 (09:50→20:03)
[2017-11-02] MEDS: SODIUM CHLORIDE 0.9% 1,000 ML IV SCH (16:40)
[2017-11-02] MEDS: DOCUSATE SODIUM 100 MG CAPSULE PO PRN (20:03)
[2017-11-03] MEDS: oxyCODONE/ACETAMINOPHEN 5-325 MG TABLET PO PRN ×2 (02:53→08:52)
[2017-11-03] MEDS: MEROPENEM 1,000 MG in SYRINGE 1 EACH IV SCH ×2 (02:55→20:50)
[2017-11-03] MEDS: SODIUM CHLORIDE 0.9% 1,000 ML IV SCH ×2 (05:36→20:54)
[2017-11-03 06:22] LABS: Basophils # 0.1 10*3/uL (0.0-0.2); Basophils % 0.7 % (0.0-0.8); Eosinophils # 0.5 10*3/uL (0.0-0.87); Eosinophils % 6.4 % (0.00-10.9); Hematocrit 26.2 VOL% (35.7-47.0); Immature Granulocytes % 0.5 %; Immature Granulocytes Absolute 0.04 #; Lymphocytes # 2.5 10*3/uL (1.4-4.0); Lymphocytes % 34.7 % (21.3-54.2); Mean Corpuscular HGB Conc 30.5 GM/DL (32-36); Mean Corpuscular Hemoglobin 29 PG (27-34); Mean Corpuscular Volume 93.9 FL (87-102); Mean Platelet Volume 10.4 FL (9.6-12.0); Monocytes # 0.9 10*3/uL (0.11-0.8); Monocytes % 12.2 % (1.7-12.7); Neutrophils # 3.3 10*3/uL (1.4-7.4); Neutrophils % 45.5 % (38.7-73.9); Platelet Count 320 T/CUMM (130-400); Red Blood Count 2.79 MC/CUMM (3.8-5.5); Red Cell Distribution Width 15.1 % (9.3-17.3); White Blood Count 7.3 T/CUMM (4-12)
[2017-11-03 06:44] LABS: Calcium 8.4 MG/DL (8.5-10.1); Osmolality,Calculated 288.5 MOS/KG (273-304); Potassium 4.5 MMOL/L (3.5-5.1)
[2017-11-03] MEDS: NITROFURANTOIN MACRO/MONO 100 MG CAPSULE PO SCH ×2 (10:18→19:19)
[2017-11-03] MEDS: GABAPENTIN 400 MG CAPSULE PO SCH (10:18)
[2017-11-03] MEDS: LOSARTAN 50 MG TABLET PO SCH (10:18)
[2017-11-03] MEDS: ALLOPURINOL 100 MG TABLET PO SCH (10:19)
[2017-11-03] MEDS: CARVEDILOL 25 MG TABLET PO SCH ×2 (10:19→20:49)
[2017-11-03] MEDS: PANTOPRAZOLE 40 MG TABLET PO SCH (10:19)
[2017-11-03] MEDS: CLOTRIMAZOLE 1% CREAM 15 GM TUBE TOP SCH ×2 (10:21→21:08)
[2017-11-03] MEDS: INSULIN NPH/REGULAR 70/30 100 UNIT/ML SUBCUT SCH ×2 (10:21→19:02)
[2017-11-03] MEDS: INSULIN LISPRO 100 UNIT/ML SUBCUT SCH ×4 (10:22→21:04)
[2017-11-03] MEDS: MORPHINE 4 MG/1 ML VIAL IV PRN (20:46)
[2017-11-04] MEDS: LOSARTAN 50 MG TABLET PO SCH (09:23)
[2017-11-04] MEDS: GABAPENTIN 400 MG CAPSULE PO SCH (09:24)
[2017-11-04] MEDS: NITROFURANTOIN MACRO/MONO 100 MG CAPSULE PO SCH ×2 (09:24→17:58)
[2017-11-04] MEDS: CARVEDILOL 25 MG TABLET PO SCH ×2 (09:24→21:24)
[2017-11-04] MEDS: DOCUSATE SODIUM 100 MG CAPSULE PO PRN (09:24)
[2017-11-04] MEDS: INSULIN NPH/REGULAR 70/30 100 UNIT/ML SUBCUT SCH ×2 (09:27→16:03)
[2017-11-04] MEDS: PANTOPRAZOLE 40 MG TABLET PO SCH (09:38)
[2017-11-04] MEDS: ALLOPURINOL 100 MG TABLET PO SCH (09:38)
[2017-11-04] MEDS: INSULIN LISPRO 100 UNIT/ML SUBCUT SCH ×4 (14:56→21:19)
[2017-11-04] MEDS: MEROPENEM 1,000 MG in SYRINGE 1 EACH IV SCH ×3 (15:51→21:22)
[2017-11-04] MEDS: CLOTRIMAZOLE 1% CREAM 15 GM TUBE TOP SCH ×2 (16:04→21:25)
[2017-11-04] MEDS: oxyCODONE/ACETAMINOPHEN 5-325 MG TABLET PO PRN ×2 (17:18→23:32)
[2017-11-04] MEDS: ACETAMINOPHEN 325 MG TABLET PO PRN (19:59)
[2017-11-05] MEDS: DOCUSATE SODIUM 100 MG CAPSULE PO PRN (09:00)
[2017-11-05] MEDS: LOSARTAN 50 MG TABLET PO SCH (09:00)
[2017-11-05] MEDS: ALLOPURINOL 100 MG TABLET PO SCH (09:01)
[2017-11-05] MEDS: oxyCODONE/ACETAMINOPHEN 5-325 MG TABLET PO PRN ×2 (09:01→16:43)
[2017-11-05] MEDS: NITROFURANTOIN MACRO/MONO 100 MG CAPSULE PO SCH (09:01)
[2017-11-05] MEDS: GABAPENTIN 400 MG CAPSULE PO SCH (09:01)
[2017-11-05] MEDS: CARVEDILOL 25 MG TABLET PO SCH ×2 (09:02→21:09)
[2017-11-05] MEDS: MEROPENEM 1,000 MG in SYRINGE 1 EACH IV SCH ×2 (09:05→21:10)
[2017-11-05] MEDS: INSULIN NPH/REGULAR 70/30 100 UNIT/ML SUBCUT SCH ×2 (09:25→19:13)
[2017-11-05] MEDS: PANTOPRAZOLE 40 MG TABLET PO SCH (09:30)
[2017-11-05] MEDS: CLOTRIMAZOLE 1% CREAM 15 GM TUBE TOP SCH ×2 (19:00→22:33)
[2017-11-05] MEDS: INSULIN LISPRO 100 UNIT/ML SUBCUT SCH ×3 (19:11→22:33)
[2017-11-05] MEDS: ZALEPLON 5 MG CAPSULE PO SCH (21:09)
[2017-11-05] MEDS: SODIUM CHLORIDE 0.9% 1,000 ML IV SCH ×3 (21:20→22:34)
[2017-11-06 05:43] LABS: Basophils # 0.1 10*3/uL (0.0-0.2); Basophils % 0.9 % (0.0-0.8); Eosinophils # 0.4 10*3/uL (0.0-0.87); Eosinophils % 6.5 % (0.00-10.9); Hematocrit 26.1 VOL% (35.7-47.0); Hemoglobin 8.5 GM/DL (12.0-16.0); Immature Granulocytes % 0.9 %; Immature Granulocytes Absolute 0.06 #; Lymphocytes # 1.9 10*3/uL (1.4-4.0); Lymphocytes % 28.2 % (21.3-54.2); Mean Corpuscular HGB Conc 32.6 GM/DL (32-36); Mean Corpuscular Hemoglobin 29 PG (27-34); Mean Corpuscular Volume 88.8 FL (87-102); Mean Platelet Volume 10.4 FL (9.6-12.0); Monocytes # 0.6 10*3/uL (0.11-0.8); Monocytes % 8.6 % (1.7-12.7); Neutrophils # 3.6 10*3/uL (1.4-7.4); Neutrophils % 54.9 % (38.7-73.9); Platelet Count 343 T/CUMM (130-400); Red Blood Count 2.94 MC/CUMM (3.8-5.5); Red Cell Distribution Width 14.7 % (9.3-17.3); White Blood Count 6.6 T/CUMM (4-12)
[2017-11-06 06:12] LABS: Calcium 8.2 MG/DL (8.5-10.1); Osmolality,Calculated 290.3 MOS/KG (273-304); Potassium 3.9 MMOL/L (3.5-5.1)
[2017-11-06] MEDS: MEROPENEM 1,000 MG in SYRINGE 1 EACH IV SCH ×2 (09:48→20:12)
[2017-11-06] MEDS: GABAPENTIN 400 MG CAPSULE PO SCH (09:55)
[2017-11-06] MEDS: CARVEDILOL 25 MG TABLET PO SCH ×2 (09:55→20:12)
[2017-11-06] MEDS: ALLOPURINOL 100 MG TABLET PO SCH (09:55)
[2017-11-06] MEDS: PANTOPRAZOLE 40 MG TABLET PO SCH (09:55)
[2017-11-06] MEDS: LOSARTAN 50 MG TABLET PO SCH (09:55)
[2017-11-06] MEDS: INSULIN LISPRO 100 UNIT/ML SUBCUT SCH ×4 (10:53→20:19)
[2017-11-06] MEDS: SODIUM CHLORIDE 0.9% 1,000 ML IV SCH (11:20)
[2017-11-06] MEDS: CLOTRIMAZOLE 1% CREAM 15 GM TUBE TOP SCH ×2 (11:20→20:26)
[2017-11-06] MEDS: INSULIN NPH/REGULAR 70/30 100 UNIT/ML SUBCUT SCH ×2 (11:20→15:32)
[2017-11-06] MEDS: ZALEPLON 5 MG CAPSULE PO SCH (20:12)
[2017-11-06] MEDS: oxyCODONE/ACETAMINOPHEN 5-325 MG TABLET PO PRN (21:44)
[2017-11-07] MEDS: oxyCODONE/ACETAMINOPHEN 5-325 MG TABLET PO PRN ×2 (08:43→18:00)
[2017-11-07] MEDS: GABAPENTIN 400 MG CAPSULE PO SCH (09:32)
[2017-11-07] MEDS: PANTOPRAZOLE 40 MG TABLET PO SCH (09:33)
[2017-11-07] MEDS: LOSARTAN 50 MG TABLET PO SCH (09:33)
[2017-11-07] MEDS: ALLOPURINOL 100 MG TABLET PO SCH (09:33)
[2017-11-07] MEDS: CARVEDILOL 25 MG TABLET PO SCH ×2 (09:33→21:25)
[2017-11-07] MEDS: MEROPENEM 1,000 MG in SYRINGE 1 EACH IV SCH ×2 (09:35→21:25)
[2017-11-07] MEDS: INSULIN LISPRO 100 UNIT/ML SUBCUT SCH ×4 (09:43→22:58)
[2017-11-07] MEDS: INSULIN NPH/REGULAR 70/30 100 UNIT/ML SUBCUT SCH ×2 (09:44→17:23)
[2017-11-07] MEDS: CLOTRIMAZOLE 1% CREAM 15 GM TUBE TOP SCH ×2 (11:40→22:58)
[2017-11-07] MEDS: SODIUM CHLORIDE 0.9% 1,000 ML IV SCH ×2 (12:20→17:56)
[2017-11-07] MEDS ORDERED: ENOXAPARIN 80 MG/0.8 ML SYRINGE SUBCUT SCH (14:00)
[2017-11-07] MEDS ORDERED: ENOXAPARIN 100 MG/ML SYRINGE SUBCUT SCH (15:00)
[2017-11-07] MEDS: ZALEPLON 5 MG CAPSULE PO SCH (21:25)
[2017-11-08] MEDS: oxyCODONE/ACETAMINOPHEN 5-325 MG TABLET PO PRN ×2 (00:32→09:29)
[2017-11-08] MEDS: MEROPENEM 1,000 MG in SYRINGE 1 EACH IV SCH (06:05)
[2017-11-08 06:35] LABS: Basophils # 0.1 10*3/uL (0.0-0.2); Basophils % 1.3 % (0.0-0.8); Eosinophils # 0.1 10*3/uL (0.0-0.87); Eosinophils % 2.4 % (0.00-10.9); Hematocrit 26.4 VOL% (35.7-47.0); Hemoglobin 8.6 GM/DL (12.0-16.0); Immature Granulocytes % 0.9 %; Immature Granulocytes Absolute 0.04 #; Lymphocytes # 1.7 10*3/uL (1.4-4.0); Lymphocytes % 38.4 % (21.3-54.2); Mean Corpuscular HGB Conc 32.6 GM/DL (32-36); Mean Corpuscular Hemoglobin 29 PG (27-34); Mean Corpuscular Volume 88.6 FL (87-102); Mean Platelet Volume 10.3 FL (9.6-12.0); Monocytes # 0.4 10*3/uL (0.11-0.8); Monocytes % 8.2 % (1.7-12.7); Neutrophils # 2.2 10*3/uL (1.4-7.4); Neutrophils % 48.8 % (38.7-73.9); Platelet Count 270 T/CUMM (130-400); Red Blood Count 2.98 MC/CUMM (3.8-5.5); Red Cell Distribution Width 14.9 % (9.3-17.3); White Blood Count 4.5 T/CUMM (4-12)
[2017-11-08 06:52] LABS: Calcium 7.9 MG/DL (8.5-10.1); Osmolality,Calculated 285.5 MOS/KG (273-304)
[2017-11-08] MEDS: INSULIN LISPRO 100 UNIT/ML SUBCUT SCH ×2 (08:52→12:08)
[2017-11-08] MEDS: CARVEDILOL 25 MG TABLET PO SCH (09:28)
[2017-11-08] MEDS: ALLOPURINOL 100 MG TABLET PO SCH (09:28)
[2017-11-08] MEDS: LOSARTAN 50 MG TABLET PO SCH (09:29)
[2017-11-08] MEDS: PANTOPRAZOLE 40 MG TABLET PO SCH (09:30)
[2017-11-08] MEDS: GABAPENTIN 400 MG CAPSULE PO SCH (09:30)
[2017-11-08] MEDS: INSULIN NPH/REGULAR 70/30 100 UNIT/ML SUBCUT SCH (09:31)
[2017-11-08] MEDS: CLOTRIMAZOLE 1% CREAM 15 GM TUBE TOP SCH (11:44)
[2017-11-08 14:03] VITALS: BP 143/68
== END 2017-11-08 14:10 | disposition home health service (06) | DRG 194 ==
LOC: EDBD → EDUNIT# → N.ED 12:43 → N.EDINP 15:28 → SUATTDRO 15:28 → N.2W 17:20 → N.5E 18:45
PROVIDERS: ADMIT Internal Medicine; ATTEND Internal Medicine

== ENCOUNTER 2018-04-07 15:20 | Inpatient (IN) ==
[2018-04-07] MEDS ORDERED: ONDANSETRON 4 MG/2 ML VIAL IV STA (15:37)
[2018-04-07] MEDS ORDERED: LEVOFLOXACIN INJ 750 MG in PREMIX 1 EACH IV STA (15:37)
[2018-04-07] MEDS ORDERED: SODIUM CHLORIDE 0.9% 1,000 ML IV STA ×2 (15:37→16:45)
[2018-04-07] MEDS ORDERED: ALBUTEROL 2.5 MG/3 ML NEB RESP TX SCH (16:00)
[2018-04-07 16:15] LABS: Basophils % 0.1 % (0.0-0.8); Hematocrit 27.7 VOL% (35.7-47.0); Hemoglobin 9.2 GM/DL (12.0-16.0); Immature Granulocytes % 0.9 %; Immature Granulocytes Absolute 0.15 #; Lymphocytes # 0.6 10*3/uL (1.4-4.0); Lymphocytes % 3.4 % (21.3-54.2); Mean Corpuscular HGB Conc 33.2 GM/DL (32-36); Mean Corpuscular Hemoglobin 29 PG (27-34); Mean Platelet Volume 10.4 FL (9.6-12.0); Monocytes # 0.8 10*3/uL (0.11-0.8); Monocytes % 4.6 % (1.7-12.7); Neutrophils # 15.3 10*3/uL (1.4-7.4); Platelet Count 471 T/CUMM (130-400); Red Blood Count 3.22 MC/CUMM (3.8-5.5); Red Cell Distribution Width 12.8 % (9.3-17.3); White Blood Count 16.8 T/CUMM (4-12)
[2018-04-07 16:27] LABS: INR 1.1; PT Patient Result 11.7 SECS; Partial Thromboplastin Time 30.8 SECS (0-40)
[2018-04-07 16:36] LABS: Band Neutrophils 1 % (0-10); Lymphocytes 6 % (20-55); Platelet Estimate Increased; Segmented Neutrophils 90 % (50-85); Total Cells Counted 100
[2018-04-07 16:37] LABS: Hypochromasia Slight; Lactic Acid 3.9 MMOL/L (0.4-2.0)
[2018-04-07 16:40] LABS: Alanine Aminotransferase 9 U/L (13-56); Albumin 1.3 G/DL (3.4-5.0); Alkaline Phosphatase 126 U/L (45-117); Aspartate Amino Transferase 10 U/L (0-37); Bilirubin,Total < 0.39 MG/DL (0.2-1.0); Blood Urea Nitrogen 73 MG/DL (7-18); Calcium 8.4 MG/DL (8.5-10.1); Osmolality,Calculated 305.4 MOS/KG (273-304); Potassium 4.1 MMOL/L (3.5-5.1); Sodium 126 MMOL/L (136-145); Total Protein 6.5 G/DL (6.4-8.3); Troponin I 0.015 NG/ML (0.00-0.045)
[2018-04-07 16:44] LABS: Glucose 653 MG/DL (74-106)
[2018-04-07] MEDS ORDERED: INSULIN REGULAR 100 UNIT/ML SUBCUT STA (16:44)
[2018-04-07] MEDS ORDERED: INSULIN REGULAR 100 UNIT/ML IV STA (16:44)
[2018-04-07 17:28] LABS: Apearance,Urine CLOUDY (Clear); Bacteria,Urine Occasional /HPF (Few); Bilirubin,Urine Negative (Negative); Blood, Urine Moderate mg/dL (Negative); Glucose,Urine (UA) >=500 mg/dL (Negative); Ketones,Urine Negative (Negative); Mucus,Urine Occasional /LPF (Occasional); Nitrite,Urine Negative (Negative); Protein,Urine 100 MG/DL; RBC,Urine 5 /HPF (0-4); Squamous Epithelial Cell,Urine Occasional /HPF (0-10); Urine Color Yellow (Yellow); Urine Specific Gravity 1.014 (1.001-1.035); Urine Urobilinogen < 2.0 EU/DL (0.2-1.0); WBC,Urine 99 /HPF (0-6)
[2018-04-07] MEDS ORDERED: DOCUSATE SODIUM 100 MG CAPSULE PO PRN (17:28)
[2018-04-07 17:32] LABS: Barbiturates Screen,Urine Negative (Negative); Benzodiazepines Screen,Urine Negative (Negative); Cannabinoid Screen,Urine Negative (Negative); Opiate Screen,Urine Positive (Negative); Phencyclidine Screen,Urine Negative (Negative)
[2018-04-07] MEDS ORDERED: POTASSIUM CHLORIDE RIDER 10 MEQ in PREMIX 1 EACH IV PRN (17:32)
[2018-04-07] MEDS ORDERED: SODIUM CHLORIDE 0.9% 1,000 ML IV ONE (17:32)
[2018-04-07] MEDS ORDERED: SODIUM CHLORIDE 0.45% 1,000 ML IV SCH (18:00)
[2018-04-07] MEDS ORDERED: AZTREONAM 2,000 MG in SODIUM CHLORIDE 0.9% 100 ML IV SCH (18:00)
[2018-04-07 18:10] LABS: ABG HCO3 16.5 MMOL/L (20-26); ABG Oxygen Saturation 99.2 % (95-100); ABG PCO2 27.3 MM HG (35-48); ABG PH 7.339 (7.35-7.45); ABG TCO2 13.5 MMOL/L (23-27)
[2018-04-07] MEDS: ALBUTEROL/IPRATROPIUM 3 ML NEB RESP TX SCH (18:58)
[2018-04-07] MEDS ORDERED: AZTREONAM 1,000 MG in SODIUM CHLORIDE 0.9% 100 ML IV ONE (20:00)
[2018-04-07] MEDS: ENOXAPARIN 30 MG/0.3 ML SYRINGE SUBCUT SCH (20:53)
[2018-04-07] MEDS: GABAPENTIN 300 MG CAPSULE PO SCH (20:54)
[2018-04-07] MEDS: INSULIN NPH/REGULAR 70/30 100 UNIT/ML SUBCUT SCH (20:54)
[2018-04-07] MEDS: guaiFENesin/DM ER 600-30 MG TABLET PO SCH (20:54)
[2018-04-07] MEDS: SODIUM CHLORIDE 0.9% 1,000 ML IV SCH (20:55)
[2018-04-07] MEDS: INSULIN REGULAR 100 UNIT/ML SUBCUT SCH (20:56)
[2018-04-07] MEDS ORDERED: INSULIN DETEMIR 100 UNIT/ML SUBCUT SCH (21:00)
[2018-04-07] MEDS ORDERED: INSULIN REGULAR 100 UNIT/ML SUBCUT SCH (21:00)
[2018-04-07] MEDS: CARVEDILOL 25 MG TABLET PO SCH (21:01)
[2018-04-07] MEDS: methylPREDNISolone SOD SUC 40 MG/1 ML VIAL IV SCH (21:21)
[2018-04-07] MEDS: AZITHROMYCIN INJ 500 MG in SODIUM CHLORIDE 0.9% 250 ML IV SCH (22:00)
[2018-04-07] MEDS: ONDANSETRON 4 MG/2 ML VIAL IV PRN (22:24)
[2018-04-08] MEDS: INSULIN REGULAR 100 UNIT/ML SUBCUT SCH ×6 (00:35→20:59)
[2018-04-08] MEDS: ALBUTEROL/IPRATROPIUM 3 ML NEB RESP TX SCH ×4 (01:19→19:48)
[2018-04-08 04:42] LABS: Basophils % 0.1 % (0.0-0.8); Hematocrit 25.5 VOL% (35.7-47.0); Hemoglobin 8.2 GM/DL (12.0-16.0); Immature Granulocytes % 0.8 %; Lymphocytes # 0.9 10*3/uL (1.4-4.0); Lymphocytes % 7.8 % (21.3-54.2); Mean Corpuscular HGB Conc 32.2 GM/DL (32-36); Mean Corpuscular Hemoglobin 28 PG (27-34); Mean Corpuscular Volume 85.9 FL (87-102); Mean Platelet Volume 10.9 FL (9.6-12.0); Monocytes # 0.2 10*3/uL (0.11-0.8); Monocytes % 1.5 % (1.7-12.7); Neutrophils # 10.6 10*3/uL (1.4-7.4); Neutrophils % 89.8 % (38.7-73.9); Platelet Count 422 T/CUMM (130-400); Red Blood Count 2.97 MC/CUMM (3.8-5.5); Red Cell Distribution Width 12.8 % (9.3-17.3); White Blood Count 11.8 T/CUMM (4-12)
[2018-04-08 05:12] LABS: Alanine Aminotransferase < 9 U/L (13-56); Albumin 1.1 G/DL (3.4-5.0); Alkaline Phosphatase 115 U/L (45-117); Aspartate Amino Transferase 12 U/L (0-37); Bilirubin,Total < 0.39 MG/DL (0.2-1.0); Blood Urea Nitrogen 67 MG/DL (7-18); Calcium 8.3 MG/DL (8.5-10.1); Glucose 103 MG/DL (74-106); Osmolality,Calculated 280.7 MOS/KG (273-304); Potassium 4.1 MMOL/L (3.5-5.1); Sodium 131 MMOL/L (136-145)
[2018-04-08] MEDS: CLOTRIMAZOLE 1% CREAM 15 GM TUBE TOP SCH ×3 (05:47→21:00)
[2018-04-08] MEDS: methylPREDNISolone SOD SUC 40 MG/1 ML VIAL IV SCH ×2 (05:58→17:28)
[2018-04-08] MEDS: SODIUM CHLORIDE 0.9% 1,000 ML IV SCH ×2 (06:45→15:50)
[2018-04-08] MEDS ORDERED: NON-FORMULARY MEDICATION (Losartan Potassium [Cozaar] 100 MG) PO SCH (09:00)
[2018-04-08] MEDS ORDERED: FUROSEMIDE 40 MG TABLET PO SCH (09:00)
[2018-04-08] MEDS: MULTIVITAMIN (CENTRUM) TABLET PO SCH (09:47)
[2018-04-08] MEDS: GABAPENTIN 300 MG CAPSULE PO SCH ×3 (09:47→21:02)
[2018-04-08] MEDS: GABAPENTIN 400 MG CAPSULE PO SCH (09:48)
[2018-04-08] MEDS: ASPIRIN EC 81 MG TABLET PO SCH (09:48)
[2018-04-08] MEDS: guaiFENesin/DM ER 600-30 MG TABLET PO SCH ×2 (09:48→21:00)
[2018-04-08] MEDS: POTASSIUM CHLORIDE 20 MEQ TABLET PO SCH (09:48)
[2018-04-08] MEDS: ALLOPURINOL 100 MG TABLET PO SCH (09:48)
[2018-04-08] MEDS: INSULIN NPH/REGULAR 70/30 100 UNIT/ML SUBCUT SCH ×2 (09:49→20:59)
[2018-04-08] MEDS: CARVEDILOL 25 MG TABLET PO SCH ×2 (09:49→21:00)
[2018-04-08] MEDS: BISACODYL 5 MG TABLET PO SCH (09:49)
[2018-04-08] MEDS: AZTREONAM 500 MG in SODIUM CHLORIDE 0.9% 100 ML IV SCH ×2 (09:50→21:01)
[2018-04-08] MEDS: PANTOPRAZOLE 40 MG TABLET PO SCH (09:57)
[2018-04-08] MEDS: ONDANSETRON 4 MG/2 ML VIAL IV PRN (17:25)
[2018-04-08] MEDS ORDERED: LEVOFLOXACIN INJ 750 MG in PREMIX 1 EACH IV SCH (18:00)
[2018-04-08] MEDS: ENOXAPARIN 30 MG/0.3 ML SYRINGE SUBCUT SCH (21:00)
[2018-04-08] MEDS: AZITHROMYCIN INJ 500 MG in SODIUM CHLORIDE 0.9% 250 ML IV SCH (22:02)
[2018-04-09] MEDS: INSULIN REGULAR 100 UNIT/ML SUBCUT SCH ×7 (00:45→23:22)
[2018-04-09] MEDS: ALBUTEROL 2.5 MG/3 ML NEB RESP TX PRN (01:35)
[2018-04-09] MEDS: ALBUTEROL/IPRATROPIUM 3 ML NEB RESP TX SCH ×4 (01:35→19:22)
[2018-04-09] MEDS: SODIUM CHLORIDE 0.9% 1,000 ML IV SCH ×3 (03:20→14:01)
[2018-04-09] MEDS: methylPREDNISolone SOD SUC 40 MG/1 ML VIAL IV SCH ×2 (05:29→18:07)
[2018-04-09 07:21] LABS: Basophils % 0.1 % (0.0-0.8); Hematocrit 26.7 VOL% (35.7-47.0); Hemoglobin 8.5 GM/DL (12.0-16.0); Immature Granulocytes % 2.6 %; Lymphocytes # 1.3 10*3/uL (1.4-4.0); Mean Corpuscular HGB Conc 31.8 GM/DL (32-36); Mean Corpuscular Hemoglobin 29 PG (27-34); Mean Corpuscular Volume 89.6 FL (87-102); Mean Platelet Volume 10.6 FL (9.6-12.0); Monocytes # 0.4 10*3/uL (0.11-0.8); Monocytes % 3.8 % (1.7-12.7); Neutrophils # 9.4 10*3/uL (1.4-7.4); Neutrophils % 82.5 % (38.7-73.9); Platelet Count 417 T/CUMM (130-400); Red Blood Count 2.98 MC/CUMM (3.8-5.5); Red Cell Distribution Width 13.3 % (9.3-17.3); White Blood Count 11.4 T/CUMM (4-12)
[2018-04-09 07:29] LABS: Alanine Aminotransferase < 9 U/L (13-56); Albumin 1.3 G/DL (3.4-5.0); Alkaline Phosphatase 97 U/L (45-117); Aspartate Amino Transferase 12 U/L (0-37); Bilirubin,Total < 0.39 MG/DL (0.2-1.0); Blood Urea Nitrogen 66 MG/DL (7-18); Calcium 7.9 MG/DL (8.5-10.1); Glucose 128 MG/DL (74-106); Osmolality,Calculated 295.7 MOS/KG (273-304); Potassium 4.6 MMOL/L (3.5-5.1); Sodium 138 MMOL/L (136-145); Total Protein 6.1 G/DL (6.4-8.3)
[2018-04-09] MEDS ORDERED: LEVOFLOXACIN INJ 500 MG in PREMIX 1 EACH IV ONE (09:00)
[2018-04-09] MEDS: AZTREONAM 500 MG in SODIUM CHLORIDE 0.9% 100 ML IV SCH ×2 (09:38→20:45)
[2018-04-09] MEDS: POTASSIUM CHLORIDE 20 MEQ TABLET PO SCH (09:42)
[2018-04-09] MEDS: PANTOPRAZOLE 40 MG TABLET PO SCH (09:42)
[2018-04-09] MEDS: CARVEDILOL 25 MG TABLET PO SCH ×2 (09:42→20:45)
[2018-04-09] MEDS: MULTIVITAMIN (CENTRUM) TABLET PO SCH (09:43)
[2018-04-09] MEDS: BISACODYL 5 MG TABLET PO SCH (09:43)
[2018-04-09] MEDS: ASPIRIN EC 81 MG TABLET PO SCH (09:43)
[2018-04-09] MEDS: ALLOPURINOL 100 MG TABLET PO SCH (09:44)
[2018-04-09] MEDS: guaiFENesin/DM ER 600-30 MG TABLET PO SCH ×2 (09:44→20:45)
[2018-04-09] MEDS: CLOTRIMAZOLE 1% CREAM 15 GM TUBE TOP SCH ×2 (09:44→20:46)
[2018-04-09] MEDS: GABAPENTIN 400 MG CAPSULE PO SCH (09:45)
[2018-04-09] MEDS: INSULIN NPH/REGULAR 70/30 100 UNIT/ML SUBCUT SCH ×2 (09:45→20:44)
[2018-04-09] MEDS: GABAPENTIN 300 MG CAPSULE PO SCH ×3 (09:53→20:45)
[2018-04-09] MEDS: ALUMINUM/MAGNES/SIMETH MAX STR 30 ML UDCUP PO PRN (20:43)
[2018-04-09] MEDS: ENOXAPARIN 30 MG/0.3 ML SYRINGE SUBCUT SCH (20:45)
[2018-04-09] MEDS: AZITHROMYCIN INJ 500 MG in SODIUM CHLORIDE 0.9% 250 ML IV SCH (21:56)
[2018-04-09] MEDS: ONDANSETRON 4 MG/2 ML VIAL IV PRN (22:09)
[2018-04-09] MEDS: ZALEPLON 5 MG CAPSULE PO PRN (22:11)
[2018-04-09] MEDS: PROMETHAZINE 25 MG/1 ML VIAL IM PRN (22:53)
[2018-04-09 23:45] LABS: Calcium 7.4 MG/DL (8.5-10.1)
[2018-04-10] MEDS: ALBUTEROL/IPRATROPIUM 3 ML NEB RESP TX SCH ×4 (00:17→19:05)
[2018-04-10] MEDS: SODIUM CHLORIDE 0.9% 1,000 ML IV SCH ×3 (03:25→19:24)
[2018-04-10] MEDS: INSULIN REGULAR 100 UNIT/ML SUBCUT SCH ×6 (03:49→23:43)
[2018-04-10] MEDS: methylPREDNISolone SOD SUC 40 MG/1 ML VIAL IV SCH ×2 (05:54→17:50)
[2018-04-10 05:55] LABS: Basophils % 0.2 % (0.0-0.8); Hematocrit 25.5 VOL% (35.7-47.0); Hemoglobin 7.9 GM/DL (12.0-16.0); Immature Granulocytes % 5.2 %; Immature Granulocytes Absolute 0.57 #; Lymphocytes % 9.2 % (21.3-54.2); Mean Corpuscular Hemoglobin 28 PG (27-34); Mean Corpuscular Volume 91.1 FL (87-102); Mean Platelet Volume 11.1 FL (9.6-12.0); Monocytes # 0.5 10*3/uL (0.11-0.8); Monocytes % 4.4 % (1.7-12.7); Neutrophils # 8.9 10*3/uL (1.4-7.4); Platelet Count 393 T/CUMM (130-400); Red Cell Distribution Width 13.8 % (9.3-17.3); White Blood Count 10.9 T/CUMM (4-12)
[2018-04-10 06:14] LABS: Anisocytosis Slight; Band Neutrophils 6 % (0-10); Lymphocytes 2 % (20-55); Platelet Estimate Normal; Segmented Neutrophils 88 % (50-85); Total Cells Counted 100
[2018-04-10 06:15] LABS: Basophilic Stippling Slight
[2018-04-10 06:20] LABS: Alanine Aminotransferase 12 U/L (13-56); Albumin 1.3 G/DL (3.4-5.0); Alkaline Phosphatase 88 U/L (45-117); Aspartate Amino Transferase 9 U/L (0-37); Bilirubin,Total < 0.39 MG/DL (0.2-1.0); Blood Urea Nitrogen 62 MG/DL (7-18); Calcium 7.6 MG/DL (8.5-10.1); Glucose 246 MG/DL (74-106); Osmolality,Calculated 300.7 MOS/KG (273-304); Potassium 4.9 MMOL/L (3.5-5.1); Sodium 138 MMOL/L (136-145); Total Protein 5.7 G/DL (6.4-8.3)
[2018-04-10] MEDS: PROMETHAZINE 25 MG/1 ML VIAL IM PRN ×2 (08:06→23:44)
[2018-04-10] MEDS: INSULIN NPH/REGULAR 70/30 100 UNIT/ML SUBCUT SCH ×3 (08:07→20:58)
[2018-04-10] MEDS: GABAPENTIN 300 MG CAPSULE PO SCH ×4 (08:07→20:58)
[2018-04-10] MEDS: BISACODYL 5 MG TABLET PO SCH (08:07)
[2018-04-10] MEDS: ASPIRIN EC 81 MG TABLET PO SCH (08:07)
[2018-04-10] MEDS: POTASSIUM CHLORIDE 20 MEQ TABLET PO SCH (08:08)
[2018-04-10] MEDS: GABAPENTIN 400 MG CAPSULE PO SCH (08:08)
[2018-04-10] MEDS: guaiFENesin/DM ER 600-30 MG TABLET PO SCH ×2 (08:08→20:57)
[2018-04-10] MEDS: PANTOPRAZOLE 40 MG TABLET PO SCH (08:08)
[2018-04-10] MEDS: ALLOPURINOL 100 MG TABLET PO SCH (08:08)
[2018-04-10] MEDS: MULTIVITAMIN (CENTRUM) TABLET PO SCH (08:08)
[2018-04-10] MEDS: CARVEDILOL 25 MG TABLET PO SCH ×2 (08:08→20:57)
[2018-04-10] MEDS: CLOTRIMAZOLE 1% CREAM 15 GM TUBE TOP SCH ×2 (08:08→20:57)
[2018-04-10] MEDS: AZTREONAM 500 MG in SODIUM CHLORIDE 0.9% 100 ML IV SCH ×2 (08:08→20:59)
[2018-04-10] MEDS ORDERED: LEVOFLOXACIN INJ 250 MG in PREMIX 1 EACH IV SCH (09:00)
[2018-04-10] MEDS: MEROPENEM 500 MG in SODIUM CHLORIDE 0.9% 100 ML IV SCH ×2 (11:44→23:26)
[2018-04-10] MEDS: ACETAMINOPHEN 325 MG TABLET PO PRN (15:27)
[2018-04-10] MEDS: ALUMINUM/MAGNES/SIMETH MAX STR 30 ML UDCUP PO PRN (19:24)
[2018-04-10] MEDS: ZALEPLON 5 MG CAPSULE PO PRN (20:57)
[2018-04-10] MEDS: ENOXAPARIN 30 MG/0.3 ML SYRINGE SUBCUT SCH (20:57)
[2018-04-11] MEDS: ALBUTEROL/IPRATROPIUM 3 ML NEB RESP TX SCH ×4 (01:26→19:40)
[2018-04-11] MEDS: INSULIN REGULAR 100 UNIT/ML SUBCUT SCH ×5 (04:16→21:49)
[2018-04-11] MEDS: methylPREDNISolone SOD SUC 40 MG/1 ML VIAL IV SCH ×2 (05:58→18:30)
[2018-04-11 08:28] LABS: Basophils # 0.1 10*3/uL (0.0-0.2); Basophils % 0.3 % (0.0-0.8); Eosinophils % 0.1 % (0.00-10.9); Hematocrit 26.5 VOL% (35.7-47.0); Hemoglobin 8.1 GM/DL (12.0-16.0); Immature Granulocytes % 7.7 %; Immature Granulocytes Absolute 1.41 #; Lymphocytes # 1.7 10*3/uL (1.4-4.0); Lymphocytes % 9.3 % (21.3-54.2); Mean Corpuscular HGB Conc 30.6 GM/DL (32-36); Mean Corpuscular Hemoglobin 28 PG (27-34); Mean Corpuscular Volume 90.4 FL (87-102); Mean Platelet Volume 10.8 FL (9.6-12.0); Monocytes # 1.2 10*3/uL (0.11-0.8); Monocytes % 6.7 % (1.7-12.7); NRBC # 0.03 10*3/uL; Neutrophils % 75.9 % (38.7-73.9); Platelet Count 480 T/CUMM (130-400); Red Blood Count 2.93 MC/CUMM (3.8-5.5); Red Cell Distribution Width 14.3 % (9.3-17.3); White Blood Count 18.4 T/CUMM (4-12)
[2018-04-11 08:51] LABS: Band Neutrophils 1 % (0-10); Hypochromasia 1+; Lymphocytes 9 % (20-55); Platelet Estimate Adequate; Segmented Neutrophils 85 % (50-85); Total Cells Counted 100
[2018-04-11 08:57] LABS: Alanine Aminotransferase 11 U/L (13-56); Albumin 1.3 G/DL (3.4-5.0); Alkaline Phosphatase 97 U/L (45-117); Aspartate Amino Transferase 10 U/L (0-37); Bilirubin,Total < 0.39 MG/DL (0.2-1.0); Blood Urea Nitrogen 66 MG/DL (7-18); Calcium 7.5 MG/DL (8.5-10.1); Glucose 98 MG/DL (74-106); Potassium 5.5 MMOL/L (3.5-5.1); Sodium 143 MMOL/L (136-145); Total Protein 5.6 G/DL (6.4-8.3)
[2018-04-11] MEDS ORDERED: LEVOFLOXACIN 500 MG TABLET PO SCH (09:00)
[2018-04-11] MEDS: SODIUM CHLORIDE 0.9% 1,000 ML IV SCH ×2 (10:03→22:30)
[2018-04-11] MEDS: BISACODYL 5 MG TABLET PO SCH (10:04)
[2018-04-11] MEDS: GABAPENTIN 300 MG CAPSULE PO SCH ×3 (10:04→21:47)
[2018-04-11] MEDS: PANTOPRAZOLE 40 MG TABLET PO SCH (10:05)
[2018-04-11] MEDS: ASPIRIN EC 81 MG TABLET PO SCH (10:05)
[2018-04-11] MEDS: guaiFENesin/DM ER 600-30 MG TABLET PO SCH ×2 (10:05→21:47)
[2018-04-11] MEDS: CARVEDILOL 25 MG TABLET PO SCH ×2 (10:05→21:47)
[2018-04-11] MEDS: POTASSIUM CHLORIDE 20 MEQ TABLET PO SCH (10:05)
[2018-04-11] MEDS: MULTIVITAMIN (CENTRUM) TABLET PO SCH (10:06)
[2018-04-11] MEDS: ALLOPURINOL 100 MG TABLET PO SCH (10:06)
[2018-04-11] MEDS: INSULIN NPH/REGULAR 70/30 100 UNIT/ML SUBCUT SCH ×3 (10:06→22:19)
[2018-04-11] MEDS: CLOTRIMAZOLE 1% CREAM 15 GM TUBE TOP SCH ×2 (10:09→21:46)
[2018-04-11] MEDS: GABAPENTIN 400 MG CAPSULE PO SCH (10:09)
[2018-04-11] MEDS: AZTREONAM 500 MG in SODIUM CHLORIDE 0.9% 100 ML IV SCH (10:13)
[2018-04-11] MEDS: LINEZOLID INJ 600 MG in PREMIX 1 EACH IV SCH ×2 (11:04→22:45)
[2018-04-11] MEDS: NYSTATIN 500,000 UNIT/5 ML UDCUP SWISH/SWAL SCH ×2 (11:49→18:33)
[2018-04-11] MEDS: ENOXAPARIN 30 MG/0.3 ML SYRINGE SUBCUT SCH (21:49)
[2018-04-11] MEDS: ACETAMINOPHEN 325 MG TABLET PO PRN (23:04)
[2018-04-12] MEDS: ALBUTEROL/IPRATROPIUM 3 ML NEB RESP TX SCH ×4 (00:46→19:33)
[2018-04-12] MEDS: NYSTATIN 500,000 UNIT/5 ML UDCUP SWISH/SWAL SCH ×5 (01:20→23:13)
[2018-04-12] MEDS: AZTREONAM 500 MG in SODIUM CHLORIDE 0.9% 100 ML IV SCH ×2 (02:59→15:58)
[2018-04-12 05:26] LABS: Basophils # 0.1 10*3/uL (0.0-0.2); Basophils % 0.5 % (0.0-0.8); Eosinophils % 0.1 % (0.00-10.9); Hematocrit 26.7 VOL% (35.7-47.0); Hemoglobin 8.4 GM/DL (12.0-16.0); Immature Granulocytes % 13.3 %; Immature Granulocytes Absolute 2.07 #; Lymphocytes # 1.5 10*3/uL (1.4-4.0); Lymphocytes % 9.9 % (21.3-54.2); Mean Corpuscular HGB Conc 31.5 GM/DL (32-36); Mean Corpuscular Hemoglobin 29 PG (27-34); Mean Corpuscular Volume 91.8 FL (87-102); Mean Platelet Volume 10.9 FL (9.6-12.0); Monocytes # 0.8 10*3/uL (0.11-0.8); Monocytes % 4.9 % (1.7-12.7); NRBC # 0.03 10*3/uL; Neutrophils # 11.1 10*3/uL (1.4-7.4); Neutrophils % 71.3 % (38.7-73.9); Platelet Count 469 T/CUMM (130-400); Red Blood Count 2.91 MC/CUMM (3.8-5.5); Red Cell Distribution Width 14.3 % (9.3-17.3); White Blood Count 15.5 T/CUMM (4-12)
[2018-04-12 05:36] LABS: Calcium 7.6 MG/DL (8.5-10.1); Osmolality,Calculated 308.3 MOS/KG (273-304); Potassium 5.4 MMOL/L (3.5-5.1)
[2018-04-12 05:55] LABS: Band Neutrophils 4 % (0-10); Lymphocytes 6 % (20-55); Metamyelocytes 2 %; Myelocytes 3 %; Nucleated Red Blood Cells 2 (0-5); Promyelocytes 1 %; Segmented Neutrophils 78 % (50-85)
[2018-04-12 05:58] LABS: Platelet Estimate Increased
[2018-04-12 05:59] LABS: Polychromasia Few
[2018-04-12 06:00] LABS: Hypochromasia 1+; Total Cells Counted 100
[2018-04-12] MEDS: methylPREDNISolone SOD SUC 40 MG/1 ML VIAL IV SCH ×2 (06:30→17:00)
[2018-04-12] MEDS: ONDANSETRON 4 MG/2 ML VIAL IV PRN (06:34)
[2018-04-12] MEDS: guaiFENesin/DM ER 600-30 MG TABLET PO SCH ×2 (09:47→23:13)
[2018-04-12] MEDS: ALUMINUM/MAGNES/SIMETH MAX STR 30 ML UDCUP PO PRN (09:47)
[2018-04-12] MEDS: INSULIN NPH/REGULAR 70/30 100 UNIT/ML SUBCUT SCH ×2 (09:47→23:15)
[2018-04-12] MEDS: ALLOPURINOL 100 MG TABLET PO SCH (09:48)
[2018-04-12] MEDS: GABAPENTIN 400 MG CAPSULE PO SCH (09:48)
[2018-04-12] MEDS: CARVEDILOL 25 MG TABLET PO SCH ×2 (09:48→23:13)
[2018-04-12] MEDS: MULTIVITAMIN (CENTRUM) TABLET PO SCH (09:48)
[2018-04-12] MEDS: GABAPENTIN 300 MG CAPSULE PO SCH ×3 (09:48→23:13)
[2018-04-12] MEDS: BISACODYL 5 MG TABLET PO SCH (09:48)
[2018-04-12] MEDS: ASPIRIN EC 81 MG TABLET PO SCH (09:48)
[2018-04-12] MEDS: CLOTRIMAZOLE 1% CREAM 15 GM TUBE TOP SCH ×2 (09:49→23:22)
[2018-04-12] MEDS: INSULIN REGULAR 100 UNIT/ML SUBCUT SCH ×4 (09:56→23:17)
[2018-04-12] MEDS: LINEZOLID INJ 600 MG in PREMIX 1 EACH IV SCH ×2 (09:56→22:10)
[2018-04-12] MEDS: PANTOPRAZOLE 40 MG TABLET PO SCH (09:56)
[2018-04-12] MEDS: hydrALAZINE 25 MG TABLET PO SCH ×2 (10:05→23:13)
[2018-04-12] MEDS: POTASSIUM CHLORIDE 20 MEQ TABLET PO SCH (11:34)
[2018-04-12] MEDS: SODIUM BICARBONATE 650 MG TABLET PO SCH ×2 (15:28→23:12)
[2018-04-12] MEDS: SODIUM CHLORIDE 0.9% 1,000 ML IV SCH (20:30)
[2018-04-12] MEDS: ENOXAPARIN 30 MG/0.3 ML SYRINGE SUBCUT SCH (23:14)
[2018-04-13] MEDS: ALBUTEROL/IPRATROPIUM 3 ML NEB RESP TX SCH ×4 (00:26→19:02)
[2018-04-13] MEDS: AZTREONAM 500 MG in SODIUM CHLORIDE 0.9% 100 ML IV SCH ×2 (02:47→17:40)
[2018-04-13 05:05] LABS: Basophils # 0.1 10*3/uL (0.0-0.2); Basophils % 0.5 % (0.0-0.8); Eosinophils % 0.1 % (0.00-10.9); Hematocrit 27.8 VOL% (35.7-47.0); Hemoglobin 8.4 GM/DL (12.0-16.0); Immature Granulocytes % 13.6 %; Immature Granulocytes Absolute 2.65 #; Lymphocytes # 1.9 10*3/uL (1.4-4.0); Lymphocytes % 9.6 % (21.3-54.2); Mean Corpuscular HGB Conc 30.2 GM/DL (32-36); Mean Corpuscular Hemoglobin 28 PG (27-34); Mean Corpuscular Volume 93.9 FL (87-102); Mean Platelet Volume 10.8 FL (9.6-12.0); Monocytes # 1.1 10*3/uL (0.11-0.8); Monocytes % 5.8 % (1.7-12.7); NRBC # 0.07 10*3/uL; Neutrophils # 13.8 10*3/uL (1.4-7.4); Neutrophils % 70.4 % (38.7-73.9); Platelet Count 514 T/CUMM (130-400); Red Blood Count 2.96 MC/CUMM (3.8-5.5); Red Cell Distribution Width 14.7 % (9.3-17.3); White Blood Count 19.5 T/CUMM (4-12)
[2018-04-13 05:16] LABS: % Iron Saturation 33.3 % (18-50); Ferritin 1078.5 ng/ml (8-252)
[2018-04-13 05:20] LABS: Folate 5.3 NG/ML (5.4-24.0); Vitamin B12 926 PG/ML (211-911)
[2018-04-13 05:46] LABS: Band Neutrophils 6 % (0-10); Lymphocytes 8 % (20-55); Metamyelocytes 5 %; Myelocytes 2 %; Platelet Estimate Increased; Polychromasia Few; Segmented Neutrophils 73 % (50-85); Total Cells Counted 100
[2018-04-13] MEDS: methylPREDNISolone SOD SUC 40 MG/1 ML VIAL IV SCH ×2 (05:50→20:31)
[2018-04-13] MEDS: NYSTATIN 500,000 UNIT/5 ML UDCUP SWISH/SWAL SCH ×3 (06:54→17:40)
[2018-04-13 08:09] LABS: Sedimentation Rate-Westergren 125 MM/HR (0-30)
[2018-04-13] MEDS: CARVEDILOL 25 MG TABLET PO SCH ×2 (08:22→20:28)
[2018-04-13] MEDS: GABAPENTIN 300 MG CAPSULE PO SCH ×3 (08:22→20:29)
[2018-04-13] MEDS: guaiFENesin/DM ER 600-30 MG TABLET PO SCH ×2 (08:22→20:28)
[2018-04-13] MEDS: hydrALAZINE 25 MG TABLET PO SCH ×2 (08:23→20:28)
[2018-04-13] MEDS: BISACODYL 5 MG TABLET PO SCH (08:23)
[2018-04-13] MEDS: PANTOPRAZOLE 40 MG TABLET PO SCH (08:23)
[2018-04-13] MEDS: MULTIVITAMIN (CENTRUM) TABLET PO SCH (08:23)
[2018-04-13] MEDS: CHOLECALCIFEROL 1,000 UNIT TABLET PO SCH (08:24)
[2018-04-13] MEDS: ASPIRIN EC 81 MG TABLET PO SCH (08:24)
[2018-04-13] MEDS: ALLOPURINOL 100 MG TABLET PO SCH (08:24)
[2018-04-13] MEDS: INSULIN NPH/REGULAR 70/30 100 UNIT/ML SUBCUT SCH ×2 (08:25→20:31)
[2018-04-13] MEDS: INSULIN REGULAR 100 UNIT/ML SUBCUT SCH ×4 (08:25→22:35)
[2018-04-13] MEDS: LINEZOLID INJ 600 MG in PREMIX 1 EACH IV SCH (08:26)
[2018-04-13] MEDS: SODIUM BICARBONATE 650 MG TABLET PO SCH ×3 (08:29→20:30)
[2018-04-13] MEDS: ERGOCALCIFEROL 50,000 UNIT CAPSULE PO SCH (09:58)
[2018-04-13] MEDS: FOLIC ACID 1 MG TABLET PO SCH (09:59)
[2018-04-13] MEDS: FLUCONAZOLE 100 MG TABLET PO SCH (12:01)
[2018-04-13] MEDS ORDERED: VANCOMYCIN INJ 1,000 MG in SODIUM CHLORIDE 0.9% 250 ML IV SCH (12:30)
[2018-04-13] MEDS ORDERED: VANCOMYCIN INJ 1,250 MG in SODIUM CHLORIDE 0.9% 250 ML IV PRN (12:33)
[2018-04-13] MEDS ORDERED: VANCOMYCIN INJ 1,750 MG in SODIUM CHLORIDE 0.9% 500 ML IV ONE (13:30)
[2018-04-13] MEDS: ACETAMINOPHEN 325 MG TABLET PO PRN (20:29)
[2018-04-13] MEDS: ZALEPLON 5 MG CAPSULE PO PRN (20:29)
[2018-04-13] MEDS: ENOXAPARIN 30 MG/0.3 ML SYRINGE SUBCUT SCH (20:30)
[2018-04-13] MEDS: SODIUM CHLORIDE 0.9% 1,000 ML IV SCH (23:45)
[2018-04-14] MEDS: NYSTATIN 500,000 UNIT/5 ML UDCUP SWISH/SWAL SCH ×4 (00:17→17:54)
[2018-04-14] MEDS: ALBUTEROL/IPRATROPIUM 3 ML NEB RESP TX SCH ×4 (01:40→19:25)
[2018-04-14] MEDS: ALUMINUM/MAGNES/SIMETH MAX STR 30 ML UDCUP PO PRN ×2 (04:09→20:43)
[2018-04-14 05:19] LABS: Calcium 7.3 MG/DL (8.5-10.1); Osmolality,Calculated 301.1 MOS/KG (273-304)
[2018-04-14] MEDS: AZTREONAM 500 MG in SODIUM CHLORIDE 0.9% 100 ML IV SCH ×2 (06:14→21:59)
[2018-04-14] MEDS ORDERED: CALCIUM GLUCONATE 1,000 MG in SODIUM CHLORIDE 0.9% 100 ML IV ONE (06:30)
[2018-04-14] MEDS ORDERED: SODIUM POLYSTYRENE SULFATE 15 GM/60 ML BOTTLE PO ONE ×2 (06:30→10:17)
[2018-04-14] MEDS: INSULIN REGULAR 100 UNIT/ML SUBCUT SCH ×4 (07:00→20:52)
[2018-04-14] MEDS: INSULIN NPH/REGULAR 70/30 100 UNIT/ML SUBCUT SCH ×2 (09:27→21:59)
[2018-04-14] MEDS: ASPIRIN EC 81 MG TABLET PO SCH (09:29)
[2018-04-14] MEDS: SODIUM BICARBONATE 650 MG TABLET PO SCH ×3 (09:29→20:47)
[2018-04-14] MEDS: FOLIC ACID 1 MG TABLET PO SCH (09:29)
[2018-04-14] MEDS: MULTIVITAMIN (CENTRUM) TABLET PO SCH (09:29)
[2018-04-14] MEDS: CHOLECALCIFEROL 1,000 UNIT TABLET PO SCH (09:29)
[2018-04-14] MEDS: CARVEDILOL 25 MG TABLET PO SCH ×2 (09:29→20:50)
[2018-04-14] MEDS: FLUCONAZOLE 100 MG TABLET PO SCH (09:29)
[2018-04-14] MEDS: GABAPENTIN 300 MG CAPSULE PO SCH (09:29)
[2018-04-14] MEDS: PANTOPRAZOLE 40 MG TABLET PO SCH (09:30)
[2018-04-14] MEDS: BISACODYL 5 MG TABLET PO SCH (09:30)
[2018-04-14] MEDS: ALLOPURINOL 100 MG TABLET PO SCH (09:30)
[2018-04-14] MEDS: guaiFENesin/DM ER 600-30 MG TABLET PO SCH ×2 (09:30→20:47)
[2018-04-14] MEDS: hydrALAZINE 25 MG TABLET PO SCH (09:30)
[2018-04-14] MEDS: LACTOBACILLUS ACIDOPHILUS/BULGARICUS CAPLET PO SCH (11:13)
[2018-04-14] MEDS: CLINDAMYCIN INJ 600 MG in PREMIX 1 EACH IV SCH ×2 (11:14→23:38)
[2018-04-14 12:24] LABS: Calcium 7.3 MG/DL (8.5-10.1); Osmolality,Calculated 311.8 MOS/KG (273-304); Potassium 4.9 MMOL/L (3.5-5.1)
[2018-04-14] MEDS: GABAPENTIN 100 MG CAPSULE PO SCH ×2 (15:13→20:47)
[2018-04-14] MEDS: GLUCAGON 1 MG VIAL IM PRN (20:43)
[2018-04-14] MEDS: ZALEPLON 5 MG CAPSULE PO PRN (20:46)
[2018-04-14] MEDS: TAMSULOSIN 0.4 MG CAPSULE PO SCH (20:50)
[2018-04-14] MEDS: ENOXAPARIN 30 MG/0.3 ML SYRINGE SUBCUT SCH (20:51)
[2018-04-15] MEDS: ONDANSETRON 4 MG/2 ML VIAL IV PRN ×2 (00:19→14:43)
[2018-04-15] MEDS: NYSTATIN 500,000 UNIT/5 ML UDCUP SWISH/SWAL SCH ×4 (00:20→17:53)
[2018-04-15] MEDS: ALBUTEROL/IPRATROPIUM 3 ML NEB RESP TX SCH ×4 (00:42→19:14)
[2018-04-15] MEDS: SODIUM CHLORIDE 0.9% 1,000 ML IV SCH (04:25)
[2018-04-15] MEDS: CLINDAMYCIN INJ 600 MG in PREMIX 1 EACH IV SCH ×2 (06:02→14:44)
[2018-04-15] MEDS: DEXTROSE 50% 25 GM/50 ML SYRINGE IV PRN (06:02)
[2018-04-15 06:34] LABS: Basophils # 0.1 10*3/uL (0.0-0.2); Basophils % 0.3 % (0.0-0.8); Eosinophils # 0.5 10*3/uL (0.0-0.87); Eosinophils % 1.5 % (0.00-10.9); Hematocrit 29.5 VOL% (35.7-47.0); Immature Granulocytes % 4.6 %; Immature Granulocytes Absolute 1.47 #; Lymphocytes # 2.7 10*3/uL (1.4-4.0); Lymphocytes % 8.6 % (21.3-54.2); Mean Corpuscular HGB Conc 30.5 GM/DL (32-36); Mean Corpuscular Hemoglobin 29 PG (27-34); Mean Corpuscular Volume 94.2 FL (87-102); Mean Platelet Volume 10.3 FL (9.6-12.0); Monocytes # 2.6 10*3/uL (0.11-0.8); Monocytes % 8.3 % (1.7-12.7); NRBC # 0.14 10*3/uL; Neutrophils # 24.3 10*3/uL (1.4-7.4); Neutrophils % 76.7 % (38.7-73.9); Platelet Count 459 T/CUMM (130-400); Red Blood Count 3.13 MC/CUMM (3.8-5.5); Red Cell Distribution Width 15.4 % (9.3-17.3); White Blood Count 31.7 T/CUMM (4-12)
[2018-04-15 06:47] LABS: Calcium 7.2 MG/DL (8.5-10.1); Osmolality,Calculated 305.4 MOS/KG (273-304); Potassium 3.9 MMOL/L (3.5-5.1)
[2018-04-15 07:17] LABS: Atypical Lymphocytes Few; Band Neutrophils 12 % (0-10); Eosinophils 4 % (0-10); Lymphocytes 11 % (20-55); Platelet Estimate Normal; Segmented Neutrophils 67 % (50-85); Total Cells Counted 100
[2018-04-15 07:18] LABS: Anisocytosis 1+; Polychromasia Slight
[2018-04-15] MEDS: GLUCAGON 1 MG VIAL IM PRN (07:45)
[2018-04-15] MEDS: INSULIN REGULAR 100 UNIT/ML SUBCUT SCH ×4 (07:55→20:48)
[2018-04-15] MEDS: INSULIN NPH/REGULAR 70/30 100 UNIT/ML SUBCUT SCH ×2 (08:51→20:48)
[2018-04-15] MEDS: CARVEDILOL 25 MG TABLET PO SCH ×2 (09:18→20:43)
[2018-04-15] MEDS: ALLOPURINOL 100 MG TABLET PO SCH (09:18)
[2018-04-15] MEDS: MULTIVITAMIN (CENTRUM) TABLET PO SCH (09:18)
[2018-04-15] MEDS: GABAPENTIN 100 MG CAPSULE PO SCH ×3 (09:18→20:43)
[2018-04-15] MEDS: ASPIRIN EC 81 MG TABLET PO SCH (09:19)
[2018-04-15] MEDS: PANTOPRAZOLE 40 MG TABLET PO SCH (09:19)
[2018-04-15] MEDS: FLUCONAZOLE 100 MG TABLET PO SCH (09:19)
[2018-04-15] MEDS: CHOLECALCIFEROL 1,000 UNIT TABLET PO SCH (09:19)
[2018-04-15] MEDS: SODIUM BICARBONATE 650 MG TABLET PO SCH ×3 (09:19→20:42)
[2018-04-15] MEDS: guaiFENesin/DM ER 600-30 MG TABLET PO SCH ×2 (09:19→20:43)
[2018-04-15] MEDS: FOLIC ACID 1 MG TABLET PO SCH (09:19)
[2018-04-15] MEDS: LACTOBACILLUS ACIDOPHILUS/BULGARICUS CAPLET PO SCH (09:19)
[2018-04-15] MEDS: BISACODYL 5 MG TABLET PO SCH (09:20)
[2018-04-15] MEDS: AZTREONAM 500 MG in SODIUM CHLORIDE 0.9% 100 ML IV SCH (12:12)
[2018-04-15] MEDS ORDERED: INSULIN NPH/REGULAR 70/30 100 UNIT/ML SUBCUT SCH (14:19)
[2018-04-15] MEDS: LINEZOLID 600 MG TABLET PO SCH ×2 (16:25→20:43)
[2018-04-15] MEDS ORDERED: MORPHINE 4 MG/1 ML VIAL IV ONE (17:43)
[2018-04-15] MEDS: ZALEPLON 5 MG CAPSULE PO PRN (20:42)
[2018-04-15] MEDS: TAMSULOSIN 0.4 MG CAPSULE PO SCH (20:43)
[2018-04-15] MEDS: ENOXAPARIN 30 MG/0.3 ML SYRINGE SUBCUT SCH (20:44)
[2018-04-16] MEDS: NYSTATIN 500,000 UNIT/5 ML UDCUP SWISH/SWAL SCH ×4 (00:18→17:00)
[2018-04-16] MEDS: ALBUTEROL/IPRATROPIUM 3 ML NEB RESP TX SCH ×4 (00:38→19:27)
[2018-04-16 06:18] LABS: Basophils % 0.1 % (0.0-0.8); Eosinophils # 0.5 10*3/uL (0.0-0.87); Eosinophils % 2.4 % (0.00-10.9); Hematocrit 24.8 VOL% (35.7-47.0); Hemoglobin 7.3 GM/DL (12.0-16.0); Immature Granulocytes % 1.5 %; Lymphocytes # 2.3 10*3/uL (1.4-4.0); Lymphocytes % 11.5 % (21.3-54.2); Mean Corpuscular HGB Conc 29.4 GM/DL (32-36); Mean Corpuscular Hemoglobin 28 PG (27-34); Mean Corpuscular Volume 95.8 FL (87-102); Monocytes # 1.3 10*3/uL (0.11-0.8); Monocytes % 6.4 % (1.7-12.7); NRBC # 0.03 10*3/uL; Neutrophils # 15.3 10*3/uL (1.4-7.4); Neutrophils % 78.1 % (38.7-73.9); Platelet Count 298 T/CUMM (130-400); Red Blood Count 2.59 MC/CUMM (3.8-5.5); Red Cell Distribution Width 15.5 % (9.3-17.3); White Blood Count 19.6 T/CUMM (4-12)
[2018-04-16 06:40] LABS: Calcium 7.1 MG/DL (8.5-10.1); Osmolality,Calculated 302.7 MOS/KG (273-304); Potassium 5.3 MMOL/L (3.5-5.1)
[2018-04-16] MEDS: INSULIN REGULAR 100 UNIT/ML SUBCUT SCH ×4 (08:04→21:17)
[2018-04-16] MEDS: guaiFENesin/DM ER 600-30 MG TABLET PO SCH ×2 (08:49→20:32)
[2018-04-16] MEDS: SODIUM BICARBONATE 650 MG TABLET PO SCH ×3 (08:49→20:32)
[2018-04-16] MEDS: GABAPENTIN 100 MG CAPSULE PO SCH ×3 (08:49→20:32)
[2018-04-16] MEDS: PANTOPRAZOLE 40 MG TABLET PO SCH (08:49)
[2018-04-16] MEDS: CHOLECALCIFEROL 1,000 UNIT TABLET PO SCH (08:50)
[2018-04-16] MEDS: FOLIC ACID 1 MG TABLET PO SCH (08:51)
[2018-04-16] MEDS: LINEZOLID 600 MG TABLET PO SCH (08:51)
[2018-04-16] MEDS: LACTOBACILLUS ACIDOPHILUS/BULGARICUS CAPLET PO SCH (08:51)
[2018-04-16] MEDS: MULTIVITAMIN (CENTRUM) TABLET PO SCH (08:51)
[2018-04-16] MEDS: ALLOPURINOL 100 MG TABLET PO SCH (08:51)
[2018-04-16] MEDS: BISACODYL 5 MG TABLET PO SCH (08:51)
[2018-04-16] MEDS: FLUCONAZOLE 100 MG TABLET PO SCH (08:51)
[2018-04-16] MEDS: CARVEDILOL 25 MG TABLET PO SCH ×2 (08:51→20:33)
[2018-04-16] MEDS: ASPIRIN EC 81 MG TABLET PO SCH (08:51)
[2018-04-16] MEDS: INSULIN NPH/REGULAR 70/30 100 UNIT/ML SUBCUT SCH ×2 (08:53→21:16)
[2018-04-16 10:34] LABS: Hemoglobin A1 (Alkaline) 97.8 % (96.5-98.5); Hemoglobin A2 (Alkaline) 2.2 % (1.5-3.5)
[2018-04-16] MEDS: ONDANSETRON 4 MG/2 ML VIAL IV PRN ×3 (12:15→22:51)
[2018-04-16] MEDS: SODIUM CHLORIDE 0.9% 1,000 ML IV SCH (12:26)
[2018-04-16 13:28] LABS: Protein/Creatinine Ratio,Urine 7.4 RATIO
[2018-04-16] MEDS ORDERED: VANCOMYCIN INJ 1,250 MG in SODIUM CHLORIDE 0.9% 250 ML IV PRN (15:41)
[2018-04-16] MEDS ORDERED: VANCOMYCIN INJ 1,750 MG in SODIUM CHLORIDE 0.9% 500 ML IV ONE (17:00)
[2018-04-16] MEDS: TAMSULOSIN 0.4 MG CAPSULE PO SCH (20:32)
[2018-04-16] MEDS: ENOXAPARIN 30 MG/0.3 ML SYRINGE SUBCUT SCH (20:33)
[2018-04-17] MEDS: ALBUTEROL/IPRATROPIUM 3 ML NEB RESP TX SCH ×4 (00:19→19:51)
[2018-04-17] MEDS: NYSTATIN 500,000 UNIT/5 ML UDCUP SWISH/SWAL SCH ×4 (00:41→17:55)
[2018-04-17] MEDS: ALBUTEROL 2.5 MG/3 ML NEB RESP TX PRN (05:39)
[2018-04-17 05:52] LABS: Basophils % 0.1 % (0.0-0.8); Eosinophils # 0.3 10*3/uL (0.0-0.87); Eosinophils % 1.7 % (0.00-10.9); Hematocrit 22.4 VOL% (35.7-47.0); Immature Granulocytes % 1.1 %; Immature Granulocytes Absolute 0.19 #; Lymphocytes # 1.8 10*3/uL (1.4-4.0); Lymphocytes % 10.4 % (21.3-54.2); Mean Corpuscular HGB Conc 30.4 GM/DL (32-36); Mean Corpuscular Hemoglobin 28 PG (27-34); Mean Corpuscular Volume 93.3 FL (87-102); Mean Platelet Volume 11.3 FL (9.6-12.0); Monocytes # 0.8 10*3/uL (0.11-0.8); Monocytes % 4.6 % (1.7-12.7); NRBC # 0.02 10*3/uL; Neutrophils # 13.8 10*3/uL (1.4-7.4); Neutrophils % 82.1 % (38.7-73.9); Red Cell Distribution Width 15.5 % (9.3-17.3); White Blood Count 16.9 T/CUMM (4-12)
[2018-04-17 05:56] LABS: Hemoglobin 6.8 GM/DL (12.0-16.0); Platelet Count 219 T/CUMM (130-400)
[2018-04-17 05:57] LABS: Calcium 7.6 MG/DL (8.5-10.1); Osmolality,Calculated 290.5 MOS/KG (273-304); Potassium 5.5 MMOL/L (3.5-5.1)
[2018-04-17 05:59] LABS: Hypochromasia 1+; Platelet Estimate Adequate
[2018-04-17] MEDS: guaiFENesin/DM ER 600-30 MG TABLET PO SCH ×2 (08:38→21:38)
[2018-04-17] MEDS: ALLOPURINOL 100 MG TABLET PO SCH (08:38)
[2018-04-17] MEDS: MULTIVITAMIN (CENTRUM) TABLET PO SCH (08:38)
[2018-04-17] MEDS: SODIUM BICARBONATE 650 MG TABLET PO SCH (08:38)
[2018-04-17] MEDS: CHOLECALCIFEROL 1,000 UNIT TABLET PO SCH (08:38)
[2018-04-17] MEDS: LACTOBACILLUS ACIDOPHILUS/BULGARICUS CAPLET PO SCH (08:39)
[2018-04-17] MEDS: BISACODYL 5 MG TABLET PO SCH (08:39)
[2018-04-17] MEDS: PANTOPRAZOLE 40 MG TABLET PO SCH (08:39)
[2018-04-17] MEDS: FOLIC ACID 1 MG TABLET PO SCH (08:39)
[2018-04-17] MEDS: CARVEDILOL 25 MG TABLET PO SCH ×2 (08:39→21:38)
[2018-04-17] MEDS: FLUCONAZOLE 100 MG TABLET PO SCH (08:39)
[2018-04-17] MEDS: ASPIRIN EC 81 MG TABLET PO SCH (08:39)
[2018-04-17] MEDS: GABAPENTIN 100 MG CAPSULE PO SCH ×3 (08:39→21:38)
[2018-04-17] MEDS: INSULIN NPH/REGULAR 70/30 100 UNIT/ML SUBCUT SCH ×2 (08:40→21:39)
[2018-04-17] MEDS: INSULIN REGULAR 100 UNIT/ML SUBCUT SCH ×4 (08:40→21:39)
[2018-04-17] MEDS ORDERED: SODIUM CHLORIDE 0.9% 1,000 ML IV PRN (10:26)
[2018-04-17] MEDS: ONDANSETRON 4 MG/2 ML VIAL IV PRN ×2 (13:33→19:28)
[2018-04-17] MEDS ORDERED: FUROSEMIDE 40 MG/4 ML VIAL IV ONE (16:00)
[2018-04-17 20:21] LABS: Hematocrit 30.9 VOL% (35.7-47.0); Hemoglobin 9.4 GM/DL (12.0-16.0)
[2018-04-17] MEDS: TAMSULOSIN 0.4 MG CAPSULE PO SCH (21:37)
[2018-04-17] MEDS: ENOXAPARIN 30 MG/0.3 ML SYRINGE SUBCUT SCH (21:38)
[2018-04-17] MEDS: PROMETHAZINE 25 MG/1 ML VIAL IM PRN (21:49)
[2018-04-17] MEDS: ZALEPLON 5 MG CAPSULE PO PRN (21:49)
[2018-04-18] MEDS: ALBUTEROL/IPRATROPIUM 3 ML NEB RESP TX SCH ×4 (00:36→20:12)
[2018-04-18] MEDS: NYSTATIN 500,000 UNIT/5 ML UDCUP SWISH/SWAL SCH ×4 (01:02→17:01)
[2018-04-18] MEDS: ONDANSETRON 4 MG/2 ML VIAL IV PRN (06:43)
[2018-04-18 06:44] LABS: Basophils % 0.1 % (0.0-0.8); Eosinophils # 0.2 10*3/uL (0.0-0.87); Eosinophils % 1.3 % (0.00-10.9); Hematocrit 30.3 VOL% (35.7-47.0); Hemoglobin 9.1 GM/DL (12.0-16.0); Immature Granulocytes % 0.9 %; Immature Granulocytes Absolute 0.13 #; Lymphocytes # 0.9 10*3/uL (1.4-4.0); Lymphocytes % 6.1 % (21.3-54.2); Mean Corpuscular Hemoglobin 29 PG (27-34); Mean Corpuscular Volume 96.8 FL (87-102); Mean Platelet Volume 10.8 FL (9.6-12.0); Monocytes # 0.5 10*3/uL (0.11-0.8); Monocytes % 3.3 % (1.7-12.7); Neutrophils # 13.5 10*3/uL (1.4-7.4); Neutrophils % 88.3 % (38.7-73.9); Platelet Count 172 T/CUMM (130-400); Red Blood Count 3.13 MC/CUMM (3.8-5.5); Red Cell Distribution Width 15.8 % (9.3-17.3); White Blood Count 15.3 T/CUMM (4-12)
[2018-04-18 06:59] LABS: Calcium 7.9 MG/DL (8.5-10.1); Potassium 5.6 MMOL/L (3.5-5.1)
[2018-04-18 07:26] LABS: Eosinophils 1 % (0-10); Hypochromasia Slight; Lymphocytes 6 % (20-55); Platelet Estimate Adequate; Segmented Neutrophils 88 % (50-85); Total Cells Counted 100
[2018-04-18] MEDS ORDERED: VANCOMYCIN INJ 1,250 MG in SODIUM CHLORIDE 0.9% 250 ML IV ONE (09:00)
[2018-04-18] MEDS: ALLOPURINOL 100 MG TABLET PO SCH (09:47)
[2018-04-18] MEDS: PANTOPRAZOLE 40 MG TABLET PO SCH (09:47)
[2018-04-18] MEDS: MULTIVITAMIN (CENTRUM) TABLET PO SCH (09:47)
[2018-04-18] MEDS: LACTOBACILLUS ACIDOPHILUS/BULGARICUS CAPLET PO SCH (09:47)
[2018-04-18] MEDS: CHOLECALCIFEROL 1,000 UNIT TABLET PO SCH (09:47)
[2018-04-18] MEDS: guaiFENesin/DM ER 600-30 MG TABLET PO SCH ×2 (09:47→21:19)
[2018-04-18] MEDS: CARVEDILOL 25 MG TABLET PO SCH ×2 (09:48→21:19)
[2018-04-18] MEDS: FOLIC ACID 1 MG TABLET PO SCH (09:48)
[2018-04-18] MEDS: ASPIRIN EC 81 MG TABLET PO SCH (09:48)
[2018-04-18] MEDS: FLUCONAZOLE 100 MG TABLET PO SCH (09:48)
[2018-04-18] MEDS: GABAPENTIN 100 MG CAPSULE PO SCH ×3 (09:49→21:21)
[2018-04-18] MEDS: INSULIN REGULAR 100 UNIT/ML SUBCUT SCH ×4 (09:49→21:20)
[2018-04-18] MEDS: BISACODYL 5 MG TABLET PO SCH (09:49)
[2018-04-18] MEDS: INSULIN NPH/REGULAR 70/30 100 UNIT/ML SUBCUT SCH ×2 (09:55→21:20)
[2018-04-18] MEDS: TAMSULOSIN 0.4 MG CAPSULE PO SCH (21:19)
[2018-04-18] MEDS: ENOXAPARIN 30 MG/0.3 ML SYRINGE SUBCUT SCH (21:20)
[2018-04-19] MEDS: NYSTATIN 500,000 UNIT/5 ML UDCUP SWISH/SWAL SCH ×4 (00:59→17:06)
[2018-04-19] MEDS: ALBUTEROL/IPRATROPIUM 3 ML NEB RESP TX SCH ×5 (01:09→20:00)
[2018-04-19] MEDS ORDERED: FUROSEMIDE 40 MG/4 ML VIAL ONE (02:04)
[2018-04-19] MEDS ORDERED: FUROSEMIDE 40 MG/4 ML VIAL IV ONE (02:06)
[2018-04-19] MEDS ORDERED: ETOMIDATE 20 MG/10 ML VIAL IV ONE (02:13)
[2018-04-19] MEDS ORDERED: SUCCINYLCHOLINE 200 MG/10 ML VIAL ONE (02:15)
[2018-04-19] MEDS ORDERED: VECURONIUM 10 MG VIAL IV ONE (02:17)
[2018-04-19] MEDS ORDERED: PROPOFOL 1,000 MG/100 ML BOTTLE IV ONE (02:20)
[2018-04-19] MEDS ORDERED: NOREPINEPHRINE 4 MG/4 ML VIAL IV ONE (02:20)
[2018-04-19] MEDS: PROPOFOL 1,000 MG/100 ML BOTTLE IV SCH ×2 (02:27→14:55)
[2018-04-19] MEDS: NOREPINEPHRINE 8 MG in SODIUM CHLORIDE 0.9% 242 ML IV PRN ×2 (02:28→21:26)
[2018-04-19 02:48] LABS: Basophils % 0.1 % (0.0-0.8); Eosinophils # 0.1 10*3/uL (0.0-0.87); Eosinophils % 0.4 % (0.00-10.9); Hematocrit 27.7 VOL% (35.7-47.0); Hemoglobin 8.4 GM/DL (12.0-16.0); Immature Granulocytes Absolute 0.13 #; Lymphocytes # 1.2 10*3/uL (1.4-4.0); Lymphocytes % 9.3 % (21.3-54.2); Mean Corpuscular HGB Conc 30.3 GM/DL (32-36); Mean Corpuscular Hemoglobin 29 PG (27-34); Mean Corpuscular Volume 96.9 FL (87-102); Mean Platelet Volume 10.9 FL (9.6-12.0); Monocytes # 0.4 10*3/uL (0.11-0.8); Monocytes % 3.1 % (1.7-12.7); Neutrophils # 11.4 10*3/uL (1.4-7.4); Neutrophils % 86.1 % (38.7-73.9); Platelet Count 203 T/CUMM (130-400); Red Blood Count 2.86 MC/CUMM (3.8-5.5); Red Cell Distribution Width 15.5 % (9.3-17.3); White Blood Count 13.2 T/CUMM (4-12)
[2018-04-19 02:56] LABS: Calcium 8.1 MG/DL (8.5-10.1)
[2018-04-19] MEDS ORDERED: MEROPENEM 500 MG in SODIUM CHLORIDE 0.9% 100 ML IV SCH (03:00)
[2018-04-19 03:05] LABS: Potassium 6.2 MMOL/L (3.5-5.1)
[2018-04-19] MEDS ORDERED: INSULIN REGULAR 100 UNIT/ML SUBCUT ONE (03:16)
[2018-04-19] MEDS ORDERED: DEXTROSE 50% 25 GM/50 ML SYRINGE IV ONE (03:16)
[2018-04-19] MEDS ORDERED: SODIUM BICARBONATE 50 MEQ/50 ML SYRINGE IV ONE (03:16)
[2018-04-19 03:49] LABS: ABG Base Excess -10.2 MMOL/L (-2.5-2.5); ABG HCO3 16.4 MMOL/L (20-26); ABG Oxygen Saturation 96.7 % (95-100); ABG PCO2 27.1 MM HG (35-48); ABG PH 7.333 (7.35-7.45); ABG TCO2 12.7 MMOL/L (23-27); Allen Test Positive; Pt O2 Delivery Device Ventilator
[2018-04-19] MEDS ORDERED: SODIUM POLYSTYRENE SULFATE 15 GM/60 ML BOTTLE PO SCH ×2 (04:00→08:32)
[2018-04-19] MEDS: LEVOFLOXACIN INJ 750 MG in PREMIX 1 EACH IV SCH (04:15)
[2018-04-19] MEDS ORDERED: SODIUM CHLORIDE 0.9% 500 ML IV ONE (04:46)
[2018-04-19 05:30] LABS: Basophils % 0.1 % (0.0-0.8); Eosinophils % 0.3 % (0.00-10.9); Hematocrit 28.5 VOL% (35.7-47.0); Hemoglobin 8.6 GM/DL (12.0-16.0); Immature Granulocytes Absolute 0.11 #; Lymphocytes # 0.6 10*3/uL (1.4-4.0); Lymphocytes % 5.2 % (21.3-54.2); Mean Corpuscular HGB Conc 30.2 GM/DL (32-36); Mean Corpuscular Hemoglobin 28 PG (27-34); Mean Corpuscular Volume 93.8 FL (87-102); Mean Platelet Volume 10.6 FL (9.6-12.0); Monocytes # 0.4 10*3/uL (0.11-0.8); Monocytes % 3.1 % (1.7-12.7); Neutrophils # 10.4 10*3/uL (1.4-7.4); Neutrophils % 90.3 % (38.7-73.9); Platelet Count 200 T/CUMM (130-400); Red Blood Count 3.04 MC/CUMM (3.8-5.5); Red Cell Distribution Width 15.5 % (9.3-17.3); White Blood Count 11.6 T/CUMM (4-12)
[2018-04-19 05:40] LABS: Osmolality,Calculated 305.8 MOS/KG (273-304)
[2018-04-19 05:46] LABS: Potassium 6.1 MMOL/L (3.5-5.1)
[2018-04-19] MEDS ORDERED: SODIUM CHLORIDE 0.9% 250 ML IV ONE (06:25)
[2018-04-19] MEDS ORDERED: LIDOCAINE 2% 20 ML VIAL MISC INJ ONE (07:38)
[2018-04-19 08:20] LABS: Apearance,Urine CLOUDY (Clear); Bilirubin,Urine Negative (Negative); Blood, Urine Small mg/dL (Negative); Glucose,Urine (UA) Negative (Negative); Ketones,Urine Negative (Negative); Nitrite,Urine Negative (Negative); Protein,Urine 100 MG/DL; Urine Color Yellow (Yellow); Urine Specific Gravity 1.014 (1.001-1.035); Urine Urobilinogen < 2.0 EU/DL (0.2-1.0); WBC,Urine 193 /HPF (0-6)
[2018-04-19] MEDS ORDERED: INSULIN LISPRO 100 UNIT/ML SUBCUT SCH (10:00)
[2018-04-19] MEDS: ALLOPURINOL 100 MG TABLET PO SCH (11:15)
[2018-04-19] MEDS: FUROSEMIDE 40 MG TABLET PO SCH (11:15)
[2018-04-19] MEDS: BISACODYL 5 MG TABLET PO SCH (11:15)
[2018-04-19] MEDS: LACTOBACILLUS ACIDOPHILUS/BULGARICUS CAPLET PO SCH (11:15)
[2018-04-19] MEDS: ASPIRIN EC 81 MG TABLET PO SCH (11:15)
[2018-04-19] MEDS: INSULIN NPH/REGULAR 70/30 100 UNIT/ML SUBCUT SCH (11:15)
[2018-04-19] MEDS: PANTOPRAZOLE 40 MG TABLET PO SCH (11:15)
[2018-04-19] MEDS: MULTIVITAMIN (CENTRUM) TABLET PO SCH (11:15)
[2018-04-19] MEDS: FOLIC ACID 1 MG TABLET PO SCH (11:15)
[2018-04-19] MEDS: guaiFENesin/DM ER 600-30 MG TABLET PO SCH ×2 (11:15→21:14)
[2018-04-19] MEDS: CHOLECALCIFEROL 1,000 UNIT TABLET PO SCH (11:15)
[2018-04-19] MEDS: INSULIN REGULAR 100 UNIT/ML SUBCUT SCH (11:55)
[2018-04-19] MEDS: GABAPENTIN 100 MG CAPSULE PO SCH (11:55)
[2018-04-19] MEDS: CARVEDILOL 25 MG TABLET PO SCH (11:55)
[2018-04-19] MEDS ORDERED: INSULIN REGULAR 100 UNIT/ML SUBCUT SCH (12:00)
[2018-04-19] MEDS: INSULIN LISPRO 100 UNIT/ML SUBCUT SCH ×3 (12:15→21:22)
[2018-04-19] MEDS: ENOXAPARIN 30 MG/0.3 ML SYRINGE SUBCUT SCH (21:14)
[2018-04-19] MEDS: TAMSULOSIN 0.4 MG CAPSULE PO SCH (21:21)
[2018-04-20] MEDS: DEXTROSE 50% 25 GM/50 ML SYRINGE IV PRN ×3 (00:15→17:00)
[2018-04-20] MEDS: INSULIN LISPRO 100 UNIT/ML SUBCUT SCH ×6 (00:17→21:36)
[2018-04-20] MEDS: NYSTATIN 500,000 UNIT/5 ML UDCUP SWISH/SWAL SCH ×4 (00:17→17:04)
[2018-04-20] MEDS: ALBUTEROL/IPRATROPIUM 3 ML NEB RESP TX SCH ×4 (01:40→19:40)
[2018-04-20] MEDS: PROPOFOL 1,000 MG/100 ML BOTTLE IV SCH ×3 (04:33→22:54)
[2018-04-20 05:29] LABS: Pt O2 Delivery Device Ventilator
[2018-04-20 05:30] LABS: ABG Base Excess -4.9 MMOL/L (-2.5-2.5); ABG HCO3 20.4 MMOL/L (20-26); ABG Oxygen Saturation 99.4 % (95-100); ABG PCO2 29.5 MM HG (35-48); ABG PH 7.413 (7.35-7.45); ABG TCO2 17.3 MMOL/L (23-27)
[2018-04-20 06:33] LABS: Basophils % 0.2 % (0.0-0.8); Eosinophils # 0.2 10*3/uL (0.0-0.87); Eosinophils % 2.1 % (0.00-10.9); Hematocrit 27.2 VOL% (35.7-47.0); Hemoglobin 8.3 GM/DL (12.0-16.0); Immature Granulocytes % 0.5 %; Immature Granulocytes Absolute 0.05 #; Lymphocytes % 9.6 % (21.3-54.2); Mean Corpuscular HGB Conc 30.5 GM/DL (32-36); Mean Corpuscular Hemoglobin 29 PG (27-34); Mean Corpuscular Volume 93.5 FL (87-102); Mean Platelet Volume 10.4 FL (9.6-12.0); Monocytes # 0.7 10*3/uL (0.11-0.8); Neutrophils # 8.8 10*3/uL (1.4-7.4); Neutrophils % 81.6 % (38.7-73.9); Platelet Count 193 T/CUMM (130-400); Red Blood Count 2.91 MC/CUMM (3.8-5.5); Red Cell Distribution Width 15.7 % (9.3-17.3); White Blood Count 10.8 T/CUMM (4-12)
[2018-04-20 06:57] LABS: Calcium 7.8 MG/DL (8.5-10.1); Osmolality,Calculated 295.1 MOS/KG (273-304); Potassium 4.6 MMOL/L (3.5-5.1)
[2018-04-20 07:07] LABS: Prealbumin 16.1 MG/DL (20-40)
[2018-04-20] MEDS: CHOLECALCIFEROL 1,000 UNIT TABLET PO SCH (08:39)
[2018-04-20] MEDS: BISACODYL 5 MG TABLET PO SCH (08:40)
[2018-04-20] MEDS: ALLOPURINOL 100 MG TABLET PO SCH (08:40)
[2018-04-20] MEDS: MULTIVITAMIN (CENTRUM) TABLET PO SCH (08:40)
[2018-04-20] MEDS: FUROSEMIDE 40 MG TABLET PO SCH (08:40)
[2018-04-20] MEDS: guaiFENesin/DM ER 600-30 MG TABLET PO SCH ×2 (08:40→21:38)
[2018-04-20] MEDS: FOLIC ACID 1 MG TABLET PO SCH (08:41)
[2018-04-20] MEDS: LACTOBACILLUS ACIDOPHILUS/BULGARICUS CAPLET PO SCH (08:41)
[2018-04-20] MEDS: ERGOCALCIFEROL 50,000 UNIT CAPSULE PO SCH (08:43)
[2018-04-20] MEDS: ASPIRIN EC 81 MG TABLET PO SCH (09:28)
[2018-04-20] MEDS: PANTOPRAZOLE 40 MG TABLET PO SCH (09:28)
[2018-04-20] MEDS: PANTOPRAZOLE 40 MG VIAL IV SCH (10:58)
[2018-04-20] MEDS: DEXTROSE 5% NACL 0.9% 1,000 ML IV SCH (15:29)
[2018-04-20] MEDS: ZINC OXIDE PASTE 113 GM TUBE TOP SCH (21:37)
[2018-04-20] MEDS: TAMSULOSIN 0.4 MG CAPSULE PO SCH (21:38)
[2018-04-20] MEDS: ENOXAPARIN 30 MG/0.3 ML SYRINGE SUBCUT SCH (21:38)
[2018-04-21] MEDS: INSULIN LISPRO 100 UNIT/ML SUBCUT SCH ×6 (00:53→21:41)
[2018-04-21] MEDS: NYSTATIN 500,000 UNIT/5 ML UDCUP SWISH/SWAL SCH ×4 (00:54→17:35)
[2018-04-21] MEDS: ALBUTEROL/IPRATROPIUM 3 ML NEB RESP TX SCH ×4 (01:14→19:39)
[2018-04-21] MEDS: LEVOFLOXACIN INJ 750 MG in PREMIX 1 EACH IV SCH (03:33)
[2018-04-21] MEDS: hydrALAZINE 20 MG/1 ML VIAL IV PRN ×2 (03:36→08:47)
[2018-04-21 03:37] LABS: ABG Base Excess -1.6 MMOL/L (-2.5-2.5); ABG PCO2 30.4 MM HG (35-48); ABG TCO2 20.1 MMOL/L (23-27); Allen Test Positive; Pt O2 Delivery Device Ventilator
[2018-04-21] MEDS: PROPOFOL 1,000 MG/100 ML BOTTLE IV SCH ×2 (03:56→10:46)
[2018-04-21] MEDS ORDERED: VANCOMYCIN INJ 1,250 MG in SODIUM CHLORIDE 0.9% 250 ML IV ONE (06:00)
[2018-04-21 06:29] LABS: Calcium 7.9 MG/DL (8.5-10.1); Osmolality,Calculated 296.1 MOS/KG (273-304)
[2018-04-21] MEDS: ALLOPURINOL 100 MG TABLET PO SCH (08:40)
[2018-04-21] MEDS: LACTOBACILLUS ACIDOPHILUS/BULGARICUS CAPLET PO SCH (08:40)
[2018-04-21] MEDS: guaiFENesin/DM ER 600-30 MG TABLET PO SCH ×2 (08:40→21:42)
[2018-04-21] MEDS: FUROSEMIDE 40 MG TABLET PO SCH (08:40)
[2018-04-21] MEDS: PANTOPRAZOLE 40 MG VIAL IV SCH (08:41)
[2018-04-21] MEDS: BISACODYL 5 MG TABLET PO SCH (08:41)
[2018-04-21] MEDS: FOLIC ACID 1 MG TABLET PO SCH (08:41)
[2018-04-21] MEDS: CHOLECALCIFEROL 1,000 UNIT TABLET PO SCH (08:42)
[2018-04-21] MEDS: ZINC OXIDE PASTE 113 GM TUBE TOP SCH ×2 (08:44→21:42)
[2018-04-21] MEDS: MULTIVITAMIN (CENTRUM) TABLET PO SCH (08:52)
[2018-04-21] MEDS: DEXTROSE 5% NACL 0.9% 1,000 ML IV SCH (15:06)
[2018-04-21] MEDS: TAMSULOSIN 0.4 MG CAPSULE PO SCH (21:42)
[2018-04-21] MEDS: ENOXAPARIN 30 MG/0.3 ML SYRINGE SUBCUT SCH (21:42)
[2018-04-21] MEDS: CARVEDILOL 25 MG TABLET PO SCH (21:42)
[2018-04-22] MEDS: DEXTROSE 5% NACL 0.9% 1,000 ML IV SCH (00:49)
[2018-04-22] MEDS: NYSTATIN 500,000 UNIT/5 ML UDCUP SWISH/SWAL SCH ×4 (01:19→18:24)
[2018-04-22] MEDS: INSULIN LISPRO 100 UNIT/ML SUBCUT SCH ×5 (01:19→18:24)
[2018-04-22] MEDS: PROPOFOL 1,000 MG/100 ML BOTTLE IV SCH ×4 (01:19→21:49)
[2018-04-22] MEDS: ALBUTEROL/IPRATROPIUM 3 ML NEB RESP TX SCH ×4 (01:52→19:31)
[2018-04-22 03:24] LABS: Allen Test Positive; Pt O2 Delivery Device Ventilator
[2018-04-22 03:26] LABS: ABG Base Excess -0.5 MMOL/L (-2.5-2.5); ABG Oxygen Saturation 98.6 % (95-100); ABG PH 7.452 (7.35-7.45); ABG TCO2 21.3 MMOL/L (23-27)
[2018-04-22 06:21] LABS: Basophils % 0.2 % (0.0-0.8); Eosinophils # 0.3 10*3/uL (0.0-0.87); Eosinophils % 4.9 % (0.00-10.9); Hematocrit 27.6 VOL% (35.7-47.0); Hemoglobin 8.3 GM/DL (12.0-16.0); Immature Granulocytes % 0.5 %; Immature Granulocytes Absolute 0.03 #; Lymphocytes # 0.7 10*3/uL (1.4-4.0); Lymphocytes % 10.1 % (21.3-54.2); Mean Corpuscular HGB Conc 30.1 GM/DL (32-36); Mean Corpuscular Hemoglobin 29 PG (27-34); Mean Corpuscular Volume 96.8 FL (87-102); Mean Platelet Volume 10.1 FL (9.6-12.0); Monocytes # 0.6 10*3/uL (0.11-0.8); Monocytes % 8.9 % (1.7-12.7); Neutrophils # 4.9 10*3/uL (1.4-7.4); Neutrophils % 75.4 % (38.7-73.9); Platelet Count 167 T/CUMM (130-400); Red Blood Count 2.85 MC/CUMM (3.8-5.5); Red Cell Distribution Width 15.6 % (9.3-17.3); White Blood Count 6.5 T/CUMM (4-12)
[2018-04-22 06:32] LABS: Calcium 8.1 MG/DL (8.5-10.1); Osmolality,Calculated 299.7 MOS/KG (273-304); Potassium 3.5 MMOL/L (3.5-5.1)
[2018-04-22] MEDS: LACTOBACILLUS ACIDOPHILUS/BULGARICUS CAPLET PO SCH (09:39)
[2018-04-22] MEDS: CHOLECALCIFEROL 1,000 UNIT TABLET PO SCH (09:39)
[2018-04-22] MEDS: FUROSEMIDE 40 MG TABLET PO SCH (09:39)
[2018-04-22] MEDS: ZINC OXIDE PASTE 113 GM TUBE TOP SCH ×2 (09:40→21:50)
[2018-04-22] MEDS: CARVEDILOL 25 MG TABLET PO SCH ×2 (09:40→21:50)
[2018-04-22] MEDS: MULTIVITAMIN (CENTRUM) TABLET PO SCH (09:40)
[2018-04-22] MEDS: FOLIC ACID 1 MG TABLET PO SCH (09:40)
[2018-04-22] MEDS: BISACODYL 5 MG TABLET PO SCH (09:40)
[2018-04-22] MEDS: PANTOPRAZOLE 40 MG VIAL IV SCH (09:40)
[2018-04-22] MEDS: LOSARTAN 50 MG TABLET PO SCH (09:40)
[2018-04-22] MEDS: guaiFENesin/DM ER 600-30 MG TABLET PO SCH ×2 (09:40→21:50)
[2018-04-22] MEDS: ALLOPURINOL 100 MG TABLET PO SCH (09:41)
[2018-04-22] MEDS: DEXTROSE 5% 1,000 ML IV SCH (10:44)
[2018-04-22] MEDS: ENOXAPARIN 30 MG/0.3 ML SYRINGE SUBCUT SCH (21:50)
[2018-04-22] MEDS: TAMSULOSIN 0.4 MG CAPSULE PO SCH (21:50)
[2018-04-23] MEDS: ALBUTEROL/IPRATROPIUM 3 ML NEB RESP TX SCH ×4 (00:28→19:21)
[2018-04-23] MEDS: NYSTATIN 500,000 UNIT/5 ML UDCUP SWISH/SWAL SCH ×4 (01:01→17:33)
[2018-04-23] MEDS: INSULIN LISPRO 100 UNIT/ML SUBCUT SCH ×4 (01:01→17:33)
[2018-04-23 03:36] LABS: ABG Base Excess 2.3 MMOL/L (-2.5-2.5); ABG HCO3 26.5 MMOL/L (20-26); ABG Oxygen Saturation 98.8 % (95-100); ABG PCO2 37.8 MM HG (35-48); ABG TCO2 24.5 MMOL/L (23-27); Allen Test Positive; Pt O2 Delivery Device Ventilator
[2018-04-23] MEDS: LEVOFLOXACIN INJ 750 MG in PREMIX 1 EACH IV SCH (04:27)
[2018-04-23] MEDS: PROPOFOL 1,000 MG/100 ML BOTTLE IV SCH (04:50)
[2018-04-23] MEDS: LACTOBACILLUS ACIDOPHILUS/BULGARICUS CAPLET PO SCH (08:25)
[2018-04-23] MEDS: FUROSEMIDE 40 MG TABLET PO SCH (08:25)
[2018-04-23] MEDS: CHOLECALCIFEROL 1,000 UNIT TABLET PO SCH (08:25)
[2018-04-23] MEDS: CARVEDILOL 25 MG TABLET PO SCH ×2 (08:25→21:42)
[2018-04-23] MEDS: guaiFENesin/DM ER 600-30 MG TABLET PO SCH ×2 (08:25→21:41)
[2018-04-23] MEDS: BISACODYL 5 MG TABLET PO SCH (08:25)
[2018-04-23] MEDS: MULTIVITAMIN (CENTRUM) TABLET PO SCH (08:26)
[2018-04-23] MEDS: ZINC OXIDE PASTE 113 GM TUBE TOP SCH ×2 (08:26→22:14)
[2018-04-23] MEDS: ALLOPURINOL 100 MG TABLET PO SCH (08:26)
[2018-04-23] MEDS: LOSARTAN 50 MG TABLET PO SCH (08:26)
[2018-04-23] MEDS: PANTOPRAZOLE 40 MG VIAL IV SCH (08:26)
[2018-04-23] MEDS: FOLIC ACID 1 MG TABLET PO SCH (08:26)
[2018-04-23] MEDS: DEXTROSE 5% 1,000 ML IV SCH ×2 (10:16→20:04)
[2018-04-23] MEDS: VANCOMYCIN INJ 1,250 MG in SODIUM CHLORIDE 0.9% 250 ML IV SCH (11:20)
[2018-04-23 12:08] LABS: Calcium 8.1 MG/DL (8.5-10.1); Osmolality,Calculated 292.1 MOS/KG (273-304); Potassium 3.8 MMOL/L (3.5-5.1)
[2018-04-23] MEDS: hydrALAZINE 20 MG/1 ML VIAL IV PRN (13:45)
[2018-04-23] MEDS ORDERED: NIFEdipine 10 MG CAPSULE PO PRN (14:07)
[2018-04-23] MEDS: amLODIPine 10 MG TABLET PO SCH (14:21)
[2018-04-23] MEDS: ALUMINUM/MAGNES/SIMETH MAX STR 30 ML UDCUP PO PRN ×2 (15:14→18:32)
[2018-04-23] MEDS ORDERED: FUROSEMIDE 80 MG TABLET PO SCH (16:32)
[2018-04-23] MEDS: ONDANSETRON 4 MG/2 ML VIAL IV PRN (16:45)
[2018-04-23] MEDS: cloNIDine 0.1 MG TABLET PO SCH (21:41)
[2018-04-23] MEDS: TAMSULOSIN 0.4 MG CAPSULE PO SCH (21:41)
[2018-04-23] MEDS: ENOXAPARIN 30 MG/0.3 ML SYRINGE SUBCUT SCH (21:41)
[2018-04-23] MEDS: ZALEPLON 5 MG CAPSULE PO PRN (22:07)
[2018-04-23] MEDS: ALBUTEROL 2.5 MG/3 ML NEB RESP TX PRN (22:26)
[2018-04-24] MEDS: INSULIN LISPRO 100 UNIT/ML SUBCUT SCH ×4 (00:07→17:44)
[2018-04-24] MEDS: NYSTATIN 500,000 UNIT/5 ML UDCUP SWISH/SWAL SCH ×5 (00:07→23:08)
[2018-04-24] MEDS: ALBUTEROL/IPRATROPIUM 3 ML NEB RESP TX SCH ×4 (02:16→19:19)
[2018-04-24 04:08] LABS: Eosinophils # 0.3 10*3/uL (0.0-0.87); Eosinophils % 5.5 % (0.00-10.9); Hematocrit 26.2 VOL% (35.7-47.0); Hemoglobin 7.8 GM/DL (12.0-16.0); Immature Granulocytes % 0.4 %; Immature Granulocytes Absolute 0.02 #; Lymphocytes # 0.9 10*3/uL (1.4-4.0); Lymphocytes % 19.4 % (21.3-54.2); Mean Corpuscular HGB Conc 29.8 GM/DL (32-36); Mean Corpuscular Hemoglobin 28 PG (27-34); Mean Corpuscular Volume 94.2 FL (87-102); Mean Platelet Volume 10.2 FL (9.6-12.0); Monocytes # 0.4 10*3/uL (0.11-0.8); Monocytes % 7.6 % (1.7-12.7); Neutrophils # 3.2 10*3/uL (1.4-7.4); Neutrophils % 67.1 % (38.7-73.9); Platelet Count 158 T/CUMM (130-400); Red Blood Count 2.78 MC/CUMM (3.8-5.5); Red Cell Distribution Width 14.7 % (9.3-17.3); White Blood Count 4.7 T/CUMM (4-12)
[2018-04-24 04:31] LABS: Osmolality,Calculated 291.1 MOS/KG (273-304); Potassium 3.6 MMOL/L (3.5-5.1)
[2018-04-24 04:37] LABS: ABG Base Excess 5.6 MMOL/L (-2.5-2.5); ABG HCO3 29.7 MMOL/L (20-26); ABG PCO2 41.4 MM HG (35-48); ABG PH 7.474 (7.35-7.45); ABG PO2 71.5 MM HG (80-95)
[2018-04-24] MEDS: CHOLECALCIFEROL 1,000 UNIT TABLET PO SCH (08:07)
[2018-04-24] MEDS: ALLOPURINOL 100 MG TABLET PO SCH (08:08)
[2018-04-24] MEDS: amLODIPine 10 MG TABLET PO SCH (08:08)
[2018-04-24] MEDS: LACTOBACILLUS ACIDOPHILUS/BULGARICUS CAPLET PO SCH (08:08)
[2018-04-24] MEDS: LOSARTAN 50 MG TABLET PO SCH (08:08)
[2018-04-24] MEDS: CARVEDILOL 25 MG TABLET PO SCH ×2 (08:08→21:51)
[2018-04-24] MEDS: guaiFENesin/DM ER 600-30 MG TABLET PO SCH ×2 (08:08→21:51)
[2018-04-24] MEDS: BISACODYL 5 MG TABLET PO SCH (08:09)
[2018-04-24] MEDS: cloNIDine 0.1 MG TABLET PO SCH ×3 (08:09→21:51)
[2018-04-24] MEDS: MULTIVITAMIN (CENTRUM) TABLET PO SCH (08:09)
[2018-04-24] MEDS: FOLIC ACID 1 MG TABLET PO SCH (08:09)
[2018-04-24] MEDS: ZINC OXIDE PASTE 113 GM TUBE TOP SCH ×2 (08:09→23:05)
[2018-04-24] MEDS: PANTOPRAZOLE 40 MG VIAL IV SCH (08:12)
[2018-04-24] MEDS: DEXTROSE 5% 1,000 ML IV SCH (08:48)
[2018-04-24] MEDS: FUROSEMIDE 80 MG TABLET PO SCH (11:40)
[2018-04-24] MEDS: FLUCONAZOLE 200 MG TABLET PO SCH (12:07)
[2018-04-24] MEDS: TAMSULOSIN 0.4 MG CAPSULE PO SCH (21:51)
[2018-04-24] MEDS: ENOXAPARIN 30 MG/0.3 ML SYRINGE SUBCUT SCH (21:52)
[2018-04-24] MEDS: ZALEPLON 5 MG CAPSULE PO PRN (23:05)
[2018-04-25] MEDS: INSULIN LISPRO 100 UNIT/ML SUBCUT SCH ×4 (00:01→18:35)
[2018-04-25] MEDS: ALBUTEROL/IPRATROPIUM 3 ML NEB RESP TX SCH ×4 (00:26→19:50)
[2018-04-25] MEDS: DEXTROSE 5% 1,000 ML IV SCH ×2 (03:02→10:07)
[2018-04-25] MEDS: LEVOFLOXACIN INJ 750 MG in PREMIX 1 EACH IV SCH (03:04)
[2018-04-25 05:25] LABS: Basophils % 0.2 % (0.0-0.8); Eosinophils # 0.4 10*3/uL (0.0-0.87); Eosinophils % 7.5 % (0.00-10.9); Hematocrit 23.7 VOL% (35.7-47.0); Hemoglobin 7.2 GM/DL (12.0-16.0); Immature Granulocytes % 0.4 %; Immature Granulocytes Absolute 0.02 #; Lymphocytes # 1.1 10*3/uL (1.4-4.0); Mean Corpuscular HGB Conc 30.4 GM/DL (32-36); Mean Corpuscular Hemoglobin 29 PG (27-34); Mean Corpuscular Volume 94.4 FL (87-102); Mean Platelet Volume 10.5 FL (9.6-12.0); Monocytes # 0.4 10*3/uL (0.11-0.8); Monocytes % 8.6 % (1.7-12.7); Neutrophils # 2.8 10*3/uL (1.4-7.4); Neutrophils % 60.3 % (38.7-73.9); Platelet Count 147 T/CUMM (130-400); Red Blood Count 2.51 MC/CUMM (3.8-5.5); Red Cell Distribution Width 14.5 % (9.3-17.3); White Blood Count 4.7 T/CUMM (4-12)
[2018-04-25 06:00] LABS: Calcium 7.4 MG/DL (8.5-10.1); Osmolality,Calculated 291.3 MOS/KG (273-304); Potassium 3.7 MMOL/L (3.5-5.1)
[2018-04-25] MEDS: NYSTATIN 500,000 UNIT/5 ML UDCUP SWISH/SWAL SCH ×3 (06:30→18:35)
[2018-04-25] MEDS: CHOLECALCIFEROL 1,000 UNIT TABLET PO SCH (10:05)
[2018-04-25] MEDS: FLUCONAZOLE 200 MG TABLET PO SCH (10:06)
[2018-04-25] MEDS: amLODIPine 10 MG TABLET PO SCH (10:06)
[2018-04-25] MEDS: LOSARTAN 50 MG TABLET PO SCH (10:06)
[2018-04-25] MEDS: LACTOBACILLUS ACIDOPHILUS/BULGARICUS CAPLET PO SCH (10:06)
[2018-04-25] MEDS: cloNIDine 0.1 MG TABLET PO SCH ×3 (10:06→20:42)
[2018-04-25] MEDS: CARVEDILOL 25 MG TABLET PO SCH ×2 (10:06→20:42)
[2018-04-25] MEDS: BISACODYL 5 MG TABLET PO SCH (10:06)
[2018-04-25] MEDS: guaiFENesin/DM ER 600-30 MG TABLET PO SCH ×2 (10:06→21:26)
[2018-04-25] MEDS: MULTIVITAMIN (CENTRUM) TABLET PO SCH (10:06)
[2018-04-25] MEDS: FOLIC ACID 1 MG TABLET PO SCH (10:07)
[2018-04-25] MEDS: PANTOPRAZOLE 40 MG TABLET PO SCH (10:07)
[2018-04-25] MEDS: FUROSEMIDE 80 MG TABLET PO SCH (10:07)
[2018-04-25] MEDS: ALLOPURINOL 100 MG TABLET PO SCH (10:07)
[2018-04-25] MEDS: ZINC OXIDE PASTE 113 GM TUBE TOP SCH ×2 (10:07→21:27)
[2018-04-25] MEDS ORDERED: SODIUM CHLORIDE 0.9% 1,000 ML IV PRN (10:16)
[2018-04-25] MEDS ORDERED: MAGNESIUM SULF RIDER 2 GM in PREMIX 1 EACH IV PRN (10:17)
[2018-04-25] MEDS ORDERED: MAGNESIUM SULF RIDER 4 GM in PREMIX 1 EACH IV PRN (10:17)
[2018-04-25] MEDS: ACETAMINOPHEN 325 MG TABLET PO PRN ×2 (11:52→20:42)
[2018-04-25] MEDS: hydrALAZINE 20 MG/1 ML VIAL IV PRN (12:29)
[2018-04-25] MEDS: ZALEPLON 5 MG CAPSULE PO PRN (20:41)
[2018-04-25] MEDS: TAMSULOSIN 0.4 MG CAPSULE PO SCH (20:42)
[2018-04-25] MEDS: ENOXAPARIN 30 MG/0.3 ML SYRINGE SUBCUT SCH (20:42)
[2018-04-26] MEDS: ALBUTEROL/IPRATROPIUM 3 ML NEB RESP TX SCH ×4 (00:16→20:10)
[2018-04-26] MEDS: INSULIN LISPRO 100 UNIT/ML SUBCUT SCH ×4 (01:03→18:02)
[2018-04-26] MEDS: NYSTATIN 500,000 UNIT/5 ML UDCUP SWISH/SWAL SCH ×3 (01:04→12:26)
[2018-04-26 08:07] LABS: Basophils % 0.2 % (0.0-0.8); Eosinophils # 0.4 10*3/uL (0.0-0.87); Eosinophils % 9.4 % (0.00-10.9); Hematocrit 29.1 VOL% (35.7-47.0); Immature Granulocytes % 0.2 %; Immature Granulocytes Absolute 0.01 #; Lymphocytes % 23.3 % (21.3-54.2); Mean Corpuscular HGB Conc 30.6 GM/DL (32-36); Mean Corpuscular Hemoglobin 29 PG (27-34); Mean Corpuscular Volume 93.3 FL (87-102); Mean Platelet Volume 9.8 FL (9.6-12.0); Monocytes # 0.5 10*3/uL (0.11-0.8); Monocytes % 12.1 % (1.7-12.7); Neutrophils # 2.5 10*3/uL (1.4-7.4); Neutrophils % 54.8 % (38.7-73.9); Platelet Count 141 T/CUMM (130-400); Red Cell Distribution Width 14.7 % (9.3-17.3); White Blood Count 4.5 T/CUMM (4-12)
[2018-04-26 08:22] LABS: Hemoglobin 8.9 GM/DL (12.0-16.0); Red Blood Count 3.12 MC/CUMM (3.8-5.5)
[2018-04-26] MEDS: FUROSEMIDE 80 MG TABLET PO SCH (10:17)
[2018-04-26] MEDS: FLUCONAZOLE 200 MG TABLET PO SCH (10:17)
[2018-04-26] MEDS: ALLOPURINOL 100 MG TABLET PO SCH (10:17)
[2018-04-26] MEDS: PANTOPRAZOLE 40 MG TABLET PO SCH (10:18)
[2018-04-26] MEDS: FOLIC ACID 1 MG TABLET PO SCH (10:18)
[2018-04-26] MEDS: LOSARTAN 50 MG TABLET PO SCH (10:18)
[2018-04-26] MEDS: guaiFENesin/DM ER 600-30 MG TABLET PO SCH ×2 (10:18→20:33)
[2018-04-26] MEDS: amLODIPine 10 MG TABLET PO SCH (10:18)
[2018-04-26] MEDS: MULTIVITAMIN (CENTRUM) TABLET PO SCH (10:18)
[2018-04-26] MEDS: CARVEDILOL 25 MG TABLET PO SCH ×2 (10:18→20:34)
[2018-04-26] MEDS: LACTOBACILLUS ACIDOPHILUS/BULGARICUS CAPLET PO SCH (10:18)
[2018-04-26] MEDS: cloNIDine 0.1 MG TABLET PO SCH ×3 (10:18→20:34)
[2018-04-26] MEDS: CHOLECALCIFEROL 1,000 UNIT TABLET PO SCH (10:18)
[2018-04-26] MEDS: BISACODYL 5 MG TABLET PO SCH (10:19)
[2018-04-26] MEDS: ZINC OXIDE PASTE 113 GM TUBE TOP SCH ×2 (10:23→21:22)
[2018-04-26] MEDS: DEXTROSE 5% 1,000 ML IV SCH ×2 (10:23→20:41)
[2018-04-26] MEDS: VANCOMYCIN INJ 1,250 MG in SODIUM CHLORIDE 0.9% 250 ML IV SCH (12:25)
[2018-04-26] MEDS: ACETAMINOPHEN 325 MG TABLET PO PRN ×2 (16:10→20:34)
[2018-04-26] MEDS: ZALEPLON 5 MG CAPSULE PO PRN (20:33)
[2018-04-26] MEDS: ENOXAPARIN 30 MG/0.3 ML SYRINGE SUBCUT SCH (20:33)
[2018-04-26] MEDS: TAMSULOSIN 0.4 MG CAPSULE PO SCH (20:33)
[2018-04-26] MEDS: CLOTRIMAZOLE 1% CREAM 15 GM TUBE TOP SCH (21:23)
[2018-04-27] MEDS: INSULIN LISPRO 100 UNIT/ML SUBCUT SCH ×3 (00:13→12:28)
[2018-04-27] MEDS: ALBUTEROL/IPRATROPIUM 3 ML NEB RESP TX SCH ×3 (00:52→13:48)
[2018-04-27 06:57] LABS: Calcium 7.9 MG/DL (8.5-10.1); Osmolality,Calculated 292.4 MOS/KG (273-304); Potassium 4.1 MMOL/L (3.5-5.1)
[2018-04-27] MEDS: LOSARTAN 50 MG TABLET PO SCH (09:03)
[2018-04-27] MEDS: BISACODYL 5 MG TABLET PO SCH (09:03)
[2018-04-27] MEDS: MULTIVITAMIN (CENTRUM) TABLET PO SCH (09:03)
[2018-04-27] MEDS: FOLIC ACID 1 MG TABLET PO SCH (09:04)
[2018-04-27] MEDS: LACTOBACILLUS ACIDOPHILUS/BULGARICUS CAPLET PO SCH (09:04)
[2018-04-27] MEDS: CARVEDILOL 25 MG TABLET PO SCH (09:04)
[2018-04-27] MEDS: cloNIDine 0.1 MG TABLET PO SCH ×2 (09:04→15:30)
[2018-04-27] MEDS: ERGOCALCIFEROL 50,000 UNIT CAPSULE PO SCH (09:04)
[2018-04-27] MEDS: guaiFENesin/DM ER 600-30 MG TABLET PO SCH (09:04)
[2018-04-27] MEDS: ALLOPURINOL 100 MG TABLET PO SCH (09:04)
[2018-04-27] MEDS: FUROSEMIDE 80 MG TABLET PO SCH (09:05)
[2018-04-27] MEDS: CHOLECALCIFEROL 1,000 UNIT TABLET PO SCH (09:05)
[2018-04-27] MEDS: amLODIPine 10 MG TABLET PO SCH (09:05)
[2018-04-27] MEDS: PANTOPRAZOLE 40 MG TABLET PO SCH (09:05)
[2018-04-27] MEDS: ZINC OXIDE PASTE 113 GM TUBE TOP SCH (09:06)
[2018-04-27] MEDS: CLOTRIMAZOLE 1% CREAM 15 GM TUBE TOP SCH (09:08)
[2018-04-27 12:35] VITALS: BP 154/75
[2018-04-28] MEDS ORDERED: VANCOMYCIN INJ 1,250 MG in SODIUM CHLORIDE 0.9% 250 ML IV SCH (12:30)
== END 2018-04-27 15:40 | disposition home health service (06) | DRG 720 ==
LOC: N.ED 15:20 → SUATTDRO 17:56 → N.EDINP 17:56 → N.CC 19:29 → N.2E 04-11 12:16 → N.CC 04-19 02:16 → N.5E 04-24 20:33
PROVIDERS: ADMIT Hospitalist; ATTEND Internal Medicine